=== PATIENT | female | born 1945 | race American Indian/Alaskan Native ===

== ENCOUNTER 2018-07-29 12:19 | Inpatient (IN) | payer MEDICARE ==
--- NOTE | 2018-07-29 12:28 | Emergency Department Report ---
Blank Doc - Documentation Documentation: This is a 72-year-old female that presents with weakness. PCP sent to the ED. This initial assessment/diagnostic orders/clinical plan/treatment(s) is/are subject to change based on patient's health status, clinical progression and re- assessment by fellow clinical providers in the ED. Further treatment and workup at subsequent clinical providers discretion. Patient/guardians urged not to elope from the ED as their condition may be serious if not clinically assessed and managed. Initial orders include: 1- Patient sent to MAIN ED for further evaluation and treatment 2- labs 3- patient is a/o x3
[2018-07-29 13:15] LABS: Mean Corpuscular HGB Conc 31 % (30-34); Mean Corpuscular Volume 78 fl (79-97); Platelet Count 241 K/mm3 (140-440); Red Blood Count 4.88 M/mm3 (3.65-5.03)
[2018-07-29 13:17] LABS: Hemoglobin 11.6 gm/dl (10.1-14.3)
[2018-07-29 13:35] LABS: Alanine Aminotransferase < 5 units/L (7-56); Albumin 4.6 g/dL (3.9-5); BUN/Creatinine Ratio 34; Blood Urea Nitrogen 24 mg/dL (7-17); Calcium 9.9 mg/dL (8.4-10.2); Hemolysis Index 125
[2018-07-29] MEDS ORDERED: NACL 0.9% 1000 ML 1,000 ML IV ONE (13:49)
--- NOTE | 2018-07-29 13:51 | Emergency Department Report ---
HPI - General Chief Complaint: Medical Clearance Time Seen by Provider: 07/29/18 12:26 - HPI HPI: 72-year-old [place] female presents to the emergency department with complaint of dehydration secondary to decreased oral intake. The patient is awake and alert but says that she does not have much of an appetite and will not force herself to eat or drink. Her son, who is bedside, says that he is prepared multiple different meals and/or snacks and she really seems to eat any of that. She denies any nausea or vomiting, fever, abdominal pain, dysuria. She denies any past medical history. She went to see a new primary care physician who recommended that the patient come to the emergency department for further evaluation. No recent travel or sick contacts at home. ED Past Medical Hx - Past Medical History Previous Medical History?: No - Surgical History Past Surgical History?: No - Social History Smoking Status: Never Smoker Substance Use Type: Alcohol - Medications Home Medications: Home Medications Medication Instructions Recorded Confirmed Last Taken Type No Known Home Medications [No 07/29/18 07/29/18 Unknown History Reported Home Medications] ED Review of Systems ROS: Stated complaint: DEHYDRATION Other details as noted in HPI Comment: All other systems reviewed and negative Constitutional: denies: chills, fever Eyes: denies: eye pain, vision change ENT: denies: ear pain, throat pain Respiratory: denies: cough, shortness of breath Cardiovascular: denies: chest pain, palpitations Gastrointestinal: denies: vomiting, diarrhea Genitourinary: denies: dysuria, discharge Musculoskeletal: denies: back pain, arthralgia Skin: denies: rash, lesions Neurological: denies: headache, weakness Physical Exam - Physical Exam Vital Signs: Vital Signs 07/29/18 07/29/18 12:27 12:48 Temperature 98.8 F Pulse Rate 90 Respiratory 20 Rate Blood Pressure 143/62 119/64 O2 Sat by Pulse 98 99 Oximetry Physical Exam: GENERAL: The patient is well-developed well-nourished. HENT: Normocephalic. Atraumatic. Patient has moist mucous membranes. EYES: Extraocular motions are intact. Pupils equal reactive to light bilaterally. NECK: Supple. Trachea is midline. CHEST/LUNGS: Clear to auscultation. There is no respiratory distress noted. HEART/CARDIOVASCULAR: Regular. There is no tachycardia. There is no murmur. ABDOMEN: Abdomen is soft, nontender. Patient has normal bowel sounds. There is no abdominal distention. SKIN: Skin is warm and dry. NEURO: The patient is awake, alert, and oriented. The patient is cooperative. The patient has no focal neurologic deficits. The patient has normal speech. MUSCULOSKELETAL: There is no tenderness or deformity. There is no limitation range of motion. There is no evidence of acute injury. ED Course Vital Signs 07/29/18 07/29/18 12:27 12:48 Temperature 98.8 F Pulse Rate 90 Respiratory 20 Rate Blood Pressure 143/62 119/64 O2 Sat by Pulse 98 99 Oximetry ED Medical Decision Making - Lab Data Result diagrams: 07/29/18 12:47 07/29/18 12:47 - Radiology Data Radiology results: report reviewed PROCEDURE: CT ABDOMEN PELVIS W CON TECHNIQUE: CT abdomen and pelvis with intravenous contrast HISTORY: Abd pain COMPARISONS: FINDINGS: No acute abnormality identified in the visualized lung bases. There are nonenhancing low-density cystic foci within the liver largest is seen within the right lobe measuring 1.78 cm Spleen is enlarged measuring 13.0 x 10.4 x 9.4 cm. No pancreatic abnormalities seen. And kidneys demonstrate no evidence for hydronephrosis. Noted is a low pole right renal cyst there are 2 small nonobstructing lower pole right renal calculi approximately 3 mm. No evidence for colonic or small bowel distention. The abdominal aorta is unremarkable. Appendix is identified and is unremarkable. There is a low density structure seen at the pubic symphysis is likely degenerative in nature reflecting cartilaginous hypertrophy Urinary bladder is unremarkable. No free fluid or free air identified Noted is degenerative disc disease at L2-L3 and L3-L4 with posterior bulging of the disc at L2-L3 IMPRESSION: Splenomegaly Hepatic cysts. Right renal cyst Small nonobstructing right renal calculi. Degenerative changes at L2-L3 and L3-L4 as well as the pubic symphysis. This document is electronically signed by Chetan Vazquez MD., Jul 29 2018 05:03:21 PM ET Transcribed By: ASHWIN Dictated By: ALEKS VAZQUEZ MD Electronically Authenticated By: ALEKS VAZQUEZ MD Signed Date/Time: 07/29/18 0850 - Medical Decision Making Patient presents to the emergency department with the complaint of decreased appetite and concern for dehydration. Patient has a white blood cell count of 31,000 that is majority lymphocytes. CT of the abdomen and pelvis did not show any acute process. She has a mild urinary tract infection. She will be admitted to the hospital for further evaluation and treatment was accepted for admission by hospitalist, Dr. Mcmanus. - Differential Diagnosis malignancy, UTI, sepsis, colitis Critical Care Time: No Critical care attestation.: If time is entered above; I have spent that time in minutes in the direct care of this critically ill patient, excluding procedure time. ED Disposition Clinical Impression: Lymphocytosis Leukocytosis Qualifiers: Leukocytosis type: lymphocytosis Qualified Code(s): D72.820 - Lymphocytosis (symptomatic) UTI (urinary tract infection) Qualifiers: Urinary tract infection type: acute cystitis Hematuria presence: without hematuria Qualified Code(s): N30.00 - Acute cystitis without hematuria Disposition: OP ADMIT IP TO THIS HOSP Is pt being admited?: Yes Condition: Fair Time of Disposition: 19:07
[2018-07-29 15:07] LABS: Bacteria,Urine 1+ /HPF (Negative); Bilirubin,Urine NEG (Negative); Blood,Urine SM (Negative); Color,Urine Amber (Yellow); Mucus,Urine 3+ /HPF
[2018-07-29 15:10] LABS: Basophils % (Manual) 0 % (0.0-1.8); Eosinophils % (Manual) 0 % (0.0-4.3); Monocytes % (Manual) 0 % (0.0-7.3); Total Cells Counted 100
[2018-07-29 15:11] LABS: Platelet Estimate Consistent w Auto; RBC Morphology Normal
--- NOTE | 2018-07-29 17:05 | Cat Scan Report ---
PROCEDURE: CT ABDOMEN PELVIS W CON TECHNIQUE: CT abdomen and pelvis with intravenous contrast HISTORY: Abd pain COMPARISONS: FINDINGS: No acute abnormality identified in the visualized lung bases. There are nonenhancing low-density cystic foci within the liver largest is seen within the right lobe measuring 1.78 cm Spleen is enlarged measuring 13.0 x 10.4 x 9.4 cm. No pancreatic abnormalities seen. And kidneys demonstrate no evidence for hydronephrosis. Noted is a low pole right renal cyst there ar e 2 small nonobstructing lower pole right renal calculi approximately 3 mm. No evidence for colonic or small bowel distention. The abdominal aorta is unremarkable. Appendix is identified and is unremarkable. There is a low density structure seen at the pubic symphysis is likely degenerative in nature reflect ing cartilaginous hypertrophy Urinary bladder is unremarkable. No free fluid or free air identified Noted is degenerative disc disease at L2-L3 and L3-L4 with posterior bulging of the disc at L2-L3 IMPRESSION: Splenomegaly Hepatic cysts. Right renal cyst Small nonobstructing right renal calculi. Degenerative changes at L2-L3 and L3-L4 as well as the pubic symphysis. This document is electronically signed by Chetan De Oliveira MD., Jul 29 2018 05:03:21 PM ET
--- NOTE | 2018-07-29 17:24 | History and Physical Report ---
History of Present Illness Chief complaint: She is confused, and shes not eating History of present illness: 72 YO Female with Dementia presents to ED for evaluation. Pt is confused and unable to provide detailed history. Pt history is provided by her son who is at bedside during exam and interview. As per son, the patient has experienced confusion, and loss of appetite over the past 2 weeks with persistent symptoms over the same time frame. No reports of fever, chills, CP, Palpitations, Falls, NVD, Syncope, skin rash, BRBPR, or recent ill contacts. Pt transported to [facility] via private vehicle. Pt seen and evaluated in ED and found to have SIRS secondary to UTI, Hypernatremia, Volume Depletion, as well as Encephalopathy. Pt admitted to [facility] and initiated on IV antibiotic therapy as well as IVF resuscitation therapy. Past History Past Medical History: other (Dementia) Past Surgical History: No surgical history, Other (reviewed) Social history: single. denies: smoking, alcohol abuse, prescription drug abuse Family history: no significant family history (reviewed) Medications and Allergies Allergies Allergy/AdvReac Type Severity Reaction Status Date / Time No Known Allergies Allergy Unverified 07/29/18 12:26 Home Medications Medication Instructions Recorded Confirmed Last Taken Type No Known Home Medications [No 07/29/18 07/29/18 Unknown History Reported Home Medications] Review of Systems ROS unobtainable: due to mental status Exam - Constitutional Vitals: Temp Pulse Resp BP Pulse Ox 98.8 F 90 20 117/56 99 07/29/18 12:27 07/29/18 12:27 07/29/18 12:27 07/29/18 15:00 07/29/18 15:00 General appearance: Present: mild distress - EENT Eyes: Present: PERRL ENT: hearing intact, clear oral mucosa - Neck Neck: Present: supple, normal ROM - Respiratory Respiratory effort: normal Respiratory: bilateral: CTA - Cardiovascular Heart Sounds: Present: S1 & S2. Absent: rub, click - Extremities Extremities: pulses symmetrical, No edema Peripheral Pulses: within normal limits - Abdominal General gastrointestinal: Present: soft, non-tender, non-distended, normal bowel sounds Female genitourinary: Present: normal - Integumentary Integumentary: Present: clear, warm, dry - Musculoskeletal Musculoskeletal: generalized weakness - Psychiatric Psychiatric: no appropriate mood/affect, no intact judgment & insight, no memory intact - Neurologic Neurologic: CNII-XII intact, moves all extremities Results - Labs CBC & Chem 7: 07/29/18 12:47 07/29/18 12:47 Labs: Abnormal lab results 07/29/18 07/29/18 07/29/18 Range/Units 12:47 12:47 14:23 WBC 31.5 H (4.5-11.0) K/mm3 MCV 78 L (79-97) fl MCH 24 L (28-32) pg Seg Neuts % (Manual) 9.0 L (40.0-70.0) % Lymphocytes % (Manual) 91.0 H (13.4-35.0) % Lymphocytes # (Manual) 28.7 H (1.2-5.4) K/mm3 Sodium 147 H (137-145) mmol/L BUN 24 H (7-17) mg/dL Glucose 116 H (65-100) mg/dL Total Bilirubin 2.10 H (0.1-1.2) mg/dL ALT < 5 L (7-56) units/L Lipase 126 H (13-60) units/L Ur Specific [place] 1.031 H (1.003-1.030) Urine WBC (Auto) 13.0 H (0.0-6.0) /HPF Assessment and Plan - Patient Problems (1) SIRS (systemic inflammatory response syndrome) Current Visit: Yes Status: Acute Plan to address problem: IV antibiotic therapy, CBC, CMP, Blood cultures, urinalysis, chest x ray, Repeat CBC in AM after treatment with IV antibiotic therapy to monitor for normalizat ion of leukocytosis. (2) Hypernatremia Current Visit: Yes Status: Acute Plan to address problem: IVF resuscitation therapy, repeat bmp in am, Encourage free water intake. (3) Volume depletion Current Visit: Yes Status: Acute Plan to address problem: Encourage free water intake, repeat bmp in am, monitor uop q shift, (4) UTI (urinary tract infection) Current Visit: Yes Status: Acute Qualifiers: Urinary tract infection type: acute cystitis Hematuria presence: without hematuria Qualified Code(s): N30.00 - Acute cystitis without hematuria Plan to address problem: IV antibiotic therapy, urinalysis, CBC, CMP, (5) Hyperbilirubinemia Current Visit: Yes Status: Acute Plan to address problem: IVF resuscitation, repeat LFT's (6) DVT prophylaxis Current Visit: Yes Status: Acute Plan to address problem: SCD to BLE while in bed, lovenox prophylaxis
[2018-07-29] MEDS ORDERED: TYLENOL PO PRN (17:25)
[2018-07-29] MEDS ORDERED: PROVENTIL IH PRN (17:25)
[2018-07-29] MEDS ORDERED: SODIUM CHLORIDE FLUSH SYRINGE 10 ML IV PRN (17:25)
[2018-07-29] MEDS ORDERED: ZOFRAN IV PRN (17:25)
[2018-07-29] MEDS: ROCEPHIN/NS 1 GM/50 ML 1 GM/50 ML BAG IV SCH (18:15)
[2018-07-29 21:08] LABS: Free T4 (Free Thyroxine) 1.23 ng/dL (0.76-1.46)
[2018-07-29] MEDS: LOVENOX SUB-Q SCH (23:13)
[2018-07-30 06:57] LABS: BUN/Creatinine Ratio 33; Blood Urea Nitrogen 20 mg/dL (7-17); Calcium 9.2 mg/dL (8.4-10.2); Hemolysis Index 97
[2018-07-30 07:02] LABS: Mean Corpuscular HGB Conc 29 % (30-34); Mean Corpuscular Volume 85 fl (79-97); Platelet Count 182 K/mm3 (140-440); Red Blood Count 4.26 M/mm3 (3.65-5.03)
[2018-07-30 07:05] LABS: Hemoglobin 10.3 gm/dl (10.1-14.3)
[2018-07-30 08:25] LABS: Anisocytosis 1+; Basophils % (Manual) 0 % (0.0-1.8); Eosinophils % (Manual) 0 % (0.0-4.3); Monocytes % (Manual) 0 % (0.0-7.3); Platelet Estimate Consistent w Auto; Total Cells Counted 100
--- NOTE | 2018-07-30 09:35 | Cat Scan Report ---
CT scan of head without IV contrast: History: Confusion. Findings: Ventricles are normal in size and midline in location. No evidence of acute ischemia, hemorrhage or mass. There is suspected focal areas of low attenuation at the right gilberto/medulla. No extra-axial fluid collection. Mild cortical atrophy. Normal visualized sinuses and mastoid air cells. Impression: Suspected focal areas of low-attenuation region of gilberto/medulla. Recommend MRI scan for further evaluation.
[2018-07-30] MEDS: ROCEPHIN/NS 1 GM/50 ML 1 GM/50 ML BAG IV SCH (10:34)
[2018-07-30] MEDS: SODIUM CHLORIDE FLUSH SYRINGE 10 ML IV SCH (10:36)
--- NOTE | 2018-07-30 11:33 | Progress Note ---
Assessment and Plan Assessment and plan: 72 YO Female with Dementia presented to ED for evaluation. Pt is confused and unable to provide detailed history. Pt history is provided by her son who is at bedside during exam and interview. As per son, the patient has experienced confusion, and loss of appetite over the past 2 weeks with persistent symptoms over the same time frame. Pt evaluated and found to have SIRS secondary to UTI, Hypernatremia, Volume Depletion, as well as Acute Metabolic Encephalopathy. Pt admitted to [facility] and initiated on IV antibiotic therapy as well as IVF resuscitation therapy. Hypernatremia UTI Dehydration Hyperbilirubinemia Leukocytosis Malnutrition moderate to severe Plan: Sodium improvement UA slightly Cloudy with Elevated WBC Cultures pending Continue Ceftriaxone Start IVF D5 1/2NS at 125 Continue to encourage oral intake Monitor WBC and lymphocyte count Monitor LFT's Monitor Labs Consult hematology Consult dietitian DVT PPX SCD and Lovenox History Interval history: Pt is seen on the [facility] unit today, and her son is at the bedside. At the time of examination pt was awake, alert and oriented x3. She was able to answer questions and follow command. She continues to have poor oral intake, and intake was encourage. She denies a thickened past medical history and states that the only time she was hospitalized was when she delivered her son. Denies cough, pain, n/v/d/, or dyspnea. Hospitalist Physical - Constitutional Vitals: Temp Pulse Resp BP Pulse Ox 98.5 F 71 16 100/53 98 07/30/18 07:57 07/30/18 07:57 07/30/18 07:57 07/30/18 07:57 07/30/18 07:57 General appearance: Present: no acute distress, mild distress - EENT Eyes: Present: PERRL, EOM intact ENT: hearing intact, clear oral mucosa, poor dentition - Neck Neck: Present: supple, normal ROM - Respiratory Respiratory effort: normal Respiratory: bilateral: diminished - Cardiovascular Heart rate: 71 (bpm) Rhythm: regular Heart Sounds: Present: S1 & S2 - Extremities Extremities: pulses intact, pulses symmetrical, No edema - Abdominal General gastrointestinal: soft, non-tender, normal bowel sounds - Integumentary Integumentary: Present: warm, dry - Psychiatric Psychiatric: appropriate mood/affect, cooperative - Neurologic Neurologic: CNII-XII intact, moves all extremities - Allied Health Allied health notes reviewed: nursing Results - Labs CBC & Chem 7: 07/30/18 05:24 07/30/18 05:24 Labs: Laboratory Last Values WBC 20.2 K/mm3 (4.5-11.0) H 07/30/18 05:24 RBC 4.26 M/mm3 (3.65-5.03) 07/30/18 05:24 Hgb 10.3 gm/dl (10.1-14.3) 07/30/18 05:24 Hct 36.0 % (30.3-42.9) 07/30/18 05:24 MCV 85 fl (79-97) 07/30/18 05:24 MCH 24 pg (28-32) L 07/30/18 05:24 MCHC 29 % (30-34) L 07/30/18 05:24 RDW 16.0 % (13.2-15.2) H 07/30/18 05:24 Plt Count 182 K/mm3 (140-440) 07/30/18 05:24 Lymph % (Auto) Nipple Threader 07/30/18 05:24 [place] % (Auto) Nipple Threader 07/30/18 05:24 Eos % (Auto) Nipple Threader 07/30/18 05:24 Baso % (Auto) Nipple Threader 07/30/18 05:24 Lymph # Nipple Threader 07/30/18 05:24 [place] # Nipple Threader 07/30/18 05:24 Eos # Nipple Threader 07/30/18 05:24 Baso # Nipple Threader 07/30/18 05:24 Add Manual Diff Complete 07/30/18 05:24 Total Counted 100 07/30/18 05:24 Seg Neutrophils % Nipple Threader 07/30/18 05:24 Seg Neuts % (Manual) 10.0 % (40.0-70.0) L 07/30/18 05:24 Band Neutrophils % 0 % 07/30/18 05:24 Lymphocytes % (Manual) 88.0 % (13.4-35.0) H 07/30/18 05:24 Reactive Lymphs % (Man) 2.0 % 07/30/18 05:24 Monocytes % (Manual) 0 % (0.0-7.3) 07/30/18 05:24 Eosinophils % (Manual) 0 % (0.0-4.3) 07/30/18 05:24 Basophils % (Manual) 0 % (0.0-1.8) 07/30/18 05:24 Metamyelocytes % 0 % 07/30/18 05:24 Myelocytes % 0 % 07/30/18 05:24 Promyelocytes % 0 % 07/30/18 05:24 Blast Cells % 0 % 07/30/18 05:24 Nucleated RBC % Not Reportable 07/30/18 05:24 Seg Neutrophils # Nipple Threader 07/30/18 05:24 Seg Neutrophils # Man 0.0 K/mm3 (1.8-7.7) L 07/30/18 05:24 Band Neutrophils # 0.0 K/mm3 07/30/18 05:24 Lymphocytes # (Manual) 0.0 K/mm3 (1.2-5.4) L 07/30/18 05:24 Abs React Lymphs (Man) 0.0 K/mm3 07/30/18 05:24 Monocytes # (Manual) 0.0 K/mm3 (0.0-0.8) 07/30/18 05:24 Eosinophils # (Manual) 0.0 K/mm3 (0.0-0.4) 07/30/18 05:24 Basophils # (Manual) 0.0 K/mm3 (0.0-0.1) 07/30/18 05:24 Metamyelocytes # 0.0 K/mm3 07/30/18 05:24 Myelocytes # 0.0 K/mm3 07/30/18 05:24 Promyelocytes # 0.0 K/mm3 07/30/18 05:24 Blast Cells # 0.0 K/mm3 07/30/18 05:24 WBC Morphology Not Reportable 07/30/18 05:24 Hypersegmented Neuts Not Reportable 07/30/18 05:24 Hyposegmented Neuts Not Reportable 07/30/18 05:24 Hypogranular Neuts Not Reportable 07/30/18 05:24 Smudge Cells Not Reportable 07/30/18 05:24 Toxic Granulation Not Reportable 07/30/18 05:24 Toxic Vacuolation Not Reportable 07/30/18 05:24 Dohle Bodies Not Reportable 07/30/18 05:24 Pelger-Huet Anomaly Not Reportable 07/30/18 05:24 Saleem Rods Not Reportable 07/30/18 05:24 Platelet Estimate Consistent w auto 07/30/18 05:24 Clumped Platelets Not Reportable 07/30/18 05:24 Plt Clumps, EDTA Not Reportable 07/30/18 05:24 Large Platelets Not Reportable 07/30/18 05:24 Giant Platelets Not Reportable 07/30/18 05:24 Platelet Satelliting Not Reportable 07/30/18 05:24 Plt Morphology Comment Not Reportable 07/30/18 05:24 RBC Morphology Not Reportable 07/30/18 05:24 Dimorphic RBCs Not Reportable 07/30/18 05:24 Polychromasia Not Reportable 07/30/18 05:24 Hypochromasia Not Reportable 07/30/18 05:24 Poikilocytosis Not Reportable 07/30/18 05:24 Anisocytosis 1+ 07/30/18 05:24 Microcytosis Not Reportable 07/30/18 05:24 Macrocytosis Not Reportable 07/30/18 05:24 Spherocytes Not Reportable 07/30/18 05:24 Pappenheimer Bodies Not Reportable 07/30/18 05:24 Sickle Cells Not Reportable 07/30/18 05:24 Target Cells Not Reportable 07/30/18 05:24 Tear Drop Cells Not Reportable 07/30/18 05:24 Ovalocytes Not Reportable 07/30/18 05:24 Helmet Cells Not Reportable 07/30/18 05:24 Hester-Landess Bodies Not Reportable 07/30/18 05:24 Brogan Rings Not Reportable 07/30/18 05:24 [place] Cells Not Reportable 07/30/18 05:24 Bite Cells Not Reportable 07/30/18 05:24 Crenated Cell Not Reportable 07/30/18 05:24 Elliptocytes Not Reportable 07/30/18 05:24 Acanthocytes (Spur) Not Reportable 07/30/18 05:24 Rouleaux Not Reportable 07/30/18 05:24 Hemoglobin C Crystals Not Reportable 07/30/18 05:24 Schistocytes Not Reportable 07/30/18 05:24 Malaria parasites Not Reportable 07/30/18 05:24 Akash Bodies Not Reportable 07/30/18 05:24 Hem Pathologist Commnt No 07/30/18 05:24 Sodium 144 mmol/L (137-145) 07/30/18 05:24 Potassium 3.6 mmol/L (3.6-5.0) 07/30/18 05:24 Chloride 104.1 mmol/L (98-107) 07/30/18 05:24 Carbon Dioxide 21 mmol/L (22-30) L 07/30/18 05:24 Anion Gap 23 mmol/L 07/30/18 05:24 BUN 20 mg/dL (7-17) H 07/30/18 05:24 Creatinine 0.6 mg/dL (0.7-1.2) L 07/30/18 05:24 Estimated GFR > 60 ml/min 07/30/18 05:24 BUN/Creatinine Ratio 33 % 07/30/18 05:24 Glucose 86 mg/dL (65-100) 07/30/18 05:24 Lactic Acid 1.00 mmol/L (0.7-2.0) 07/29/18 21:10 Calcium 9.2 mg/dL (8.4-10.2) 07/30/18 05:24 Total Bilirubin 2.10 mg/dL (0.1-1.2) H 07/29/18 12:47 AST 21 units/L (5-40) 07/29/18 12:47 ALT < 5 units/L (7-56) L 07/29/18 12:47 Alkaline Phosphatase 56 units/L (35-129) 07/29/18 12:47 Total Protein 7.5 g/dL (6.3-8.2) 07/29/18 12:47 Albumin 4.6 g/dL (3.9-5) 07/29/18 12:47 Albumin/Globulin Ratio 1.6 % 07/29/18 12:47 Lipase 126 units/L (13-60) H 07/29/18 12:47 TSH 0.438 mlU/mL (0.270-4.200) 07/29/18 20:15 Free T4 1.23 ng/dL (0.76-1.46) 07/29/18 20:15 Urine Color [place] (Yellow) 07/29/18 14:23 Urine Turbidity Slightly-cloudy (Clear) 07/29/18 14:23 Urine pH 5.0 (5.0-7.0) 07/29/18 14:23 Ur Specific [place] 1.031 (1.003-1.030) H 07/29/18 14:23 Urine Protein 100 mg/dl mg/dL (Negative) 07/29/18 14:23 Urine Glucose (UA) Neg mg/dL (Negative) 07/29/18 14:23 Urine Ketones 20 mg/dL (Negative) 07/29/18 14:23 Urine Blood Sm (Negative) 07/29/18 14:23 Urine Nitrite Neg (Negative) 07/29/18 14:23 Urine Bilirubin Neg (Negative) 07/29/18 14:23 Urine Urobilinogen 4.0 mg/dL (<2.0) 07/29/18 14:23 Ur Leukocyte Esterase Mod (Negative) 07/29/18 14:23 Urine WBC (Auto) 13.0 /HPF (0.0-6.0) H 07/29/18 14:23 Urine RBC (Auto) 4.0 /HPF (0.0-6.0) 07/29/18 14:23 U Epithel Cells (Auto) 9.0 /HPF (0-13.0) 07/29/18 14:23 Urine Bacteria (Auto) 1+ /HPF (Negative) 07/29/18 14:23 Urine Mucus 3+ /HPF 07/29/18 14:23 Active Medications - Current Medications Current Medications: Generic Name Dose Route Start Last Admin Trade Name Freq PRN Reason Stop Dose Admin Acetaminophen 650 mg 07/29/18 17:25 Tylenol PO Q4H PRN Pain MILD(1-3)/Fever >100.5/MARTELL Albuterol 2.5 mg 07/29/18 17:25 Proventil IH Q4HRT PRN Shortness Of Breath Enoxaparin Sodium 40 mg 07/29/18 22:00 07/29/18 23:13 Lovenox SUB-Q 40 mg QDAY@2200 TISHA Administration Ceftriaxone Sodium 1 gm in 50 mls @ 100 mls/hr 07/29/18 17:27 07/30/18 10:34 Rocephin/Ns 1 Gm/50 Ml IV 07/31/18 10:29 100 mls/hr Q24HR TISHA Administration Protocol Dextrose/Sodium Chloride 1,000 mls @ 125 mls/hr 07/30/18 11:00 D5/0.45ns IV DIRECT TISHA Ondansetron HCl 4 mg 07/29/18 17:25 Zofran IV Q8H PRN Nausea And Vomiting Sodium Chloride 10 ml 07/29/18 22:00 07/30/18 10:36 Sodium Chloride Flush Syringe 10 Ml IV 10 ml BID TISHA Administration Sodium Chloride 10 ml 07/29/18 17:25 Sodium Chloride Flush Syringe 10 Ml IV PRN PRN LINE FLUSH
[2018-07-30] MEDS: D5/0.45NS 1,000 ML IV SCH (14:57)
[2018-07-31] MEDS: ROCEPHIN/NS 1 GM/50 ML 1 GM/50 ML BAG IV SCH (10:37)
[2018-07-31] MEDS: SODIUM CHLORIDE FLUSH SYRINGE 10 ML IV SCH ×2 (10:37→22:41)
[2018-07-31] MEDS: D5/0.45NS 1,000 ML IV SCH ×2 (10:41→22:40)
[2018-07-31 12:39] LABS: Hematocrit 31.3 % (30.3-42.9); Hemoglobin 9.6 gm/dl (10.1-14.3); Mean Corpuscular HGB Conc 31 % (30-34); Mean Corpuscular Volume 77 fl (79-97); Platelet Count 169 K/mm3 (140-440); Red Blood Count 4.06 M/mm3 (3.65-5.03); Red Cell Distribution Width 14.7 % (13.2-15.2)
[2018-07-31 13:31] LABS: Anisocytosis 1+; Basophils % (Manual) 0 % (0.0-1.8); Total Cells Counted 100
[2018-07-31 13:32] LABS: Hypochromasia 1+; Ovalocytes Few; Platelet Estimate Consistent w Auto; Poikilocytosis 1+; Tear Drop Cells Few
--- NOTE | 2018-07-31 14:00 | Progress Note ---
<BURTONNATHAN Noemi. - Last Filed: 07/31/18 14:09> Assessment and Plan Assessment and plan: 72 y.o female with Dementia presented to ED for evaluation. Pt is confused and unable to provide detailed history. Pt history is provided by her son who is at bedside during exam and interview. As per son, the patient has experienced confusion, and loss of appetite over the past 2 weeks with persistent symptoms over the same time frame. Pt evaluated and found to have UTI, Hypernatremia, Volume Depletion, as well as Acute Metabolic Encephalopathy. Pt admitted to [facility] and initiated on IV antibiotic therapy as well as IVF resuscitation therapy. Hypernatremia UTI Dehydration Hyperbilirubinemia Leukocytosis Malnutrition moderate Acute Metabolic Encephalopathy Plan: Sodium improved UA slightly Cloudy with Elevated WBC; urine culture negative Blood Cultures NGTD Continue Ceftriaxone Continue IVF D5 1/2NS at 125 Continue to encourage oral intake Monitor WBC and lymphocyte count Monitor LFT's Monitor Labs Hematology consult pending Dietitian consulted Continue PT DVT PPX SCD and Lovenox History Interval history: Pt is seen on the [facility] unit today, and her son is at the bedside. Pt is able to ambulate with standby assist from PT. Her gait is steady. Pt seems more alert during today's exam. According to pt's son, pt is mentation is improving and she is almost at baseline. Overnight while pt was sleeping she experienced one episode of hypotension, and she was asymptomatic. Her intake has slightly improved. Home health services was offered, and the son has declined. He states that he lives with his mother and works nights, so he can take care of her. Denies cough, pain, n/v/d/, or dyspnea. Hospitalist Physical - Physical exam Narrative exam: General appearance: Present: no acute distress - EENT Eyes: Present: PERRL, EOM intact ENT: hearing intact, clear oral mucosa, poor dentition - Neck Neck: Present: supple, normal ROM Diagnosis - Respiratory Respiratory effort: normal Respiratory: bilateral: diminished - Cardiovascular Heart rate: 75 (bpm) Rhythm: regular Heart Sounds: Present: S1 & S2 - Extremities Extremities: pulses intact, pulses symmetrical, No edema - Abdominal General gastrointestinal: soft, non-tender, normal bowel sounds - Integumentary Integumentary: Present: warm, dry - Psychiatric Psychiatric: appropriate mood/affect, cooperative - Neurologic Neurologic: CNII-XII intact, moves all extremities - Constitutional Vitals: Temp Pulse Resp BP Pulse Ox 97.6 F 59 L 18 101/42 97 07/31/18 07:38 07/31/18 07:38 07/31/18 07:38 07/31/18 07:38 07/31/18 07:38 General appearance: Present: no acute distress, mild distress - Allied Health Allied health notes reviewed: nursing, PT, case management Results - Labs CBC & Chem 7: 07/31/18 12:28 07/30/18 05:24 Labs: Laboratory Last Values WBC 21.6 K/mm3 (4.5-11.0) H 07/31/18 12:28 RBC 4.06 M/mm3 (3.65-5.03) 07/31/18 12:28 Hgb 9.6 gm/dl (10.1-14.3) L 07/31/18 12:28 Hct 31.3 % (30.3-42.9) 07/31/18 12:28 MCV 77 fl (79-97) L 07/31/18 12:28 MCH 24 pg (28-32) L 07/31/18 12:28 MCHC 31 % (30-34) 07/31/18 12:28 RDW 14.7 % (13.2-15.2) 07/31/18 12:28 Plt Count 169 K/mm3 (140-440) 07/31/18 12:28 Lymph % (Auto) Hydraulic Operator 07/31/18 12:28 Hopkins % (Auto) Hydraulic Operator 07/30/18 05:24 Eos % (Auto) Hydraulic Operator 07/30/18 05:24 Baso % (Auto) Hydraulic Operator 07/30/18 05:24 Lymph # Hydraulic Operator 07/31/18 12:28 Hopkins # Hydraulic Operator 07/30/18 05:24 Eos # Hydraulic Operator 07/30/18 05:24 Baso # Hydraulic Operator 07/30/18 05:24 Add Manual Diff Complete 07/31/18 12:28 Total Counted 100 07/31/18 12:28 Seg Neutrophils % Hydraulic Operator 07/31/18 12:28 Seg Neuts % (Manual) 14.0 % (40.0-70.0) L 07/31/18 12:28 Band Neutrophils % 0 % 07/31/18 12:28 Lymphocytes % (Manual) 82.0 % (13.4-35.0) H 07/31/18 12:28 Reactive Lymphs % (Man) 0 % 07/31/18 12:28 Monocytes % (Manual) 3.0 % (0.0-7.3) 07/31/18 12:28 Eosinophils % (Manual) 1.0 % (0.0-4.3) 07/31/18 12:28 Basophils % (Manual) 0 % (0.0-1.8) 07/31/18 12:28 Metamyelocytes % 0 % 07/31/18 12:28 Myelocytes % 0 % 07/31/18 12:28 Promyelocytes % 0 % 07/31/18 12:28 Blast Cells % 0 % 07/31/18 12:28 Nucleated RBC % Not Reportable 07/31/18 12:28 Seg Neutrophils # Hydraulic Operator 07/30/18 05:24 Seg Neutrophils # Man 3.0 K/mm3 (1.8-7.7) 07/31/18 12:28 Band Neutrophils # 0.0 K/mm3 07/31/18 12:28 Lymphocytes # (Manual) 17.7 K/mm3 (1.2-5.4) H 07/31/18 12:28 Abs React Lymphs (Man) 0.0 K/mm3 07/31/18 12:28 Monocytes # (Manual) 0.6 K/mm3 (0.0-0.8) 07/31/18 12:28 Eosinophils # (Manual) 0.2 K/mm3 (0.0-0.4) 07/31/18 12:28 Basophils # (Manual) 0.0 K/mm3 (0.0-0.1) 07/31/18 12:28 Metamyelocytes # 0.0 K/mm3 07/31/18 12:28 Myelocytes # 0.0 K/mm3 07/31/18 12:28 Promyelocytes # 0.0 K/mm3 07/31/18 12:28 Blast Cells # 0.0 K/mm3 07/31/18 12:28 WBC Morphology Not Reportable 07/31/18 12:28 Hypersegmented Neuts Not Reportable 07/31/18 12:28 Hyposegmented Neuts Not Reportable 07/31/18 12:28 Hypogranular Neuts Not Reportable 07/31/18 12:28 Smudge Cells Not Reportable 07/31/18 12:28 Toxic Granulation Not Reportable 07/31/18 12:28 Toxic Vacuolation Not Reportable 07/31/18 12:28 Dohle Bodies Not Reportable 07/31/18 12:28 Pelger-Huet Anomaly Not Reportable 07/31/18 12:28 Saleem Rods Not Reportable 07/31/18 12:28 Platelet Estimate Consistent w auto 07/31/18 12:28 Clumped Platelets Not Reportable 07/31/18 12:28 Plt Clumps, EDTA Not Reportable 07/31/18 12:28 Large Platelets Not Reportable 07/31/18 12:28 Giant Platelets Not Reportable 07/31/18 12:28 Platelet Satelliting Not Reportable 07/31/18 12:28 Plt Morphology Comment Not Reportable 07/31/18 12:28 RBC Morphology Not Reportable 07/31/18 12:28 Dimorphic RBCs Not Reportable 07/31/18 12:28 Polychromasia Not Reportable 07/31/18 12:28 Hypochromasia 1+ 07/31/18 12:28 Poikilocytosis 1+ 07/31/18 12:28 Anisocytosis 1+ 07/31/18 12:28 Microcytosis 1+ 07/31/18 12:28 Macrocytosis Not Reportable 07/31/18 12:28 Spherocytes Not Reportable 07/31/18 12:28 Pappenheimer Bodies Not Reportable 07/31/18 12:28 Sickle Cells Not Reportable 07/31/18 12:28 Target Cells Not Reportable 07/31/18 12:28 Tear Drop Cells Few 07/31/18 12:28 Ovalocytes Few 07/31/18 12:28 Helmet Cells Not Reportable 07/31/18 12:28 H[employer] Bodies Not Reportable 07/31/18 12:28 [place] Rings Not Reportable 07/31/18 12:28 [place] Cells Not Reportable 07/31/18 12:28 Bite Cells Not Reportable 07/31/18 12:28 Crenated Cell Not Reportable 07/31/18 12:28 Elliptocytes Few 07/31/18 12:28 Acanthocytes (Spur) Not Reportable 07/31/18 12:28 Rouleaux Not Reportable 07/31/18 12:28 Hemoglobin C Crystals Not Reportable 07/31/18 12:28 Schistocytes Not Reportable 07/31/18 12:28 Malaria parasites Not Reportable 07/31/18 12:28 Akash Bodies Not Reportable 07/31/18 12:28 Hem Pathologist Commnt No 07/31/18 12:28 Sodium 144 mmol/L (137-145) 07/30/18 05:24 Potassium 3.6 mmol/L (3.6-5.0) 07/30/18 05:24 Chloride 104.1 mmol/L (98-107) 07/30/18 05:24 Carbon Dioxide 21 mmol/L (22-30) L 07/30/18 05:24 Anion Gap 23 mmol/L 07/30/18 05:24 BUN 20 mg/dL (7-17) H 07/30/18 05:24 Creatinine 0.6 mg/dL (0.7-1.2) L 07/30/18 05:24 Estimated GFR > 60 ml/min 07/30/18 05:24 BUN/Creatinine Ratio 33 % 07/30/18 05:24 Glucose 86 mg/dL (65-100) 07/30/18 05:24 Lactic Acid 1.00 mmol/L (0.7-2.0) 07/29/18 21:10 Calcium 9.2 mg/dL (8.4-10.2) 07/30/18 05:24 Total Bilirubin 2.10 mg/dL (0.1-1.2) H 07/29/18 12:47 AST 21 units/L (5-40) 07/29/18 12:47 ALT < 5 units/L (7-56) L 07/29/18 12:47 Alkaline Phosphatase 56 units/L (35-129) 07/29/18 12:47 Total Protein 7.5 g/dL (6.3-8.2) 07/29/18 12:47 Albumin 4.6 g/dL (3.9-5) 07/29/18 12:47 Albumin/Globulin Ratio 1.6 % 07/29/18 12:47 Lipase 126 units/L (13-60) H 07/29/18 12:47 TSH 0.438 mlU/mL (0.270-4.200) 07/29/18 20:15 Free T4 1.23 ng/dL (0.76-1.46) 07/29/18 20:15 Urine Color Josselyn (Yellow) 07/29/18 14:23 Urine Turbidity Slightly-cloudy (Clear) 07/29/18 14:23 Urine pH 5.0 (5.0-7.0) 07/29/18 14:23 Ur Specific [place] 1.031 (1.003-1.030) H 07/29/18 14:23 Urine Protein 100 mg/dl mg/dL (Negative) 07/29/18 14:23 Urine Glucose (UA) Neg mg/dL (Negative) 07/29/18 14:23 Urine Ketones 20 mg/dL (Negative) 07/29/18 14:23 Urine Blood Sm (Negative) 07/29/18 14:23 Urine Nitrite Neg (Negative) 07/29/18 14:23 Urine Bilirubin Neg (Negative) 07/29/18 14:23 Urine Urobilinogen 4.0 mg/dL (<2.0) 07/29/18 14:23 Ur Leukocyte Esterase Mod (Negative) 07/29/18 14:23 Urine WBC (Auto) 13.0 /HPF (0.0-6.0) H 07/29/18 14:23 Urine RBC (Auto) 4.0 /HPF (0.0-6.0) 07/29/18 14:23 U Epithel Cells (Auto) 9.0 /HPF (0-13.0) 07/29/18 14:23 Urine Bacteria (Auto) 1+ /HPF (Negative) 07/29/18 14:23 Urine Mucus 3+ /HPF 07/29/18 14:23 Active Medications - Current Medications Current Medications: Generic Name Dose Route Start Last Admin Trade Name Freq PRN Reason Stop Dose Admin Acetaminophen 650 mg 07/29/18 17:25 Tylenol PO Q4H PRN Pain MILD(1-3)/Fever >100.5/MARTELL Albuterol 2.5 mg 07/29/18 17:25 Proventil IH Q4HRT PRN Shortness Of Breath Enoxaparin Sodium 40 mg 07/29/18 22:00 07/29/18 23:13 Lovenox SUB-Q 40 mg QDAY@2200 TISHA Administration Dextrose/Sodium Chloride 1,000 mls @ 125 mls/hr 07/30/18 11:00 07/31/18 10:41 D5/0.45ns IV 125 mls/hr DIRECT TISHA Administration Ondansetron HCl 4 mg 07/29/18 17:25 Zofran IV Q8H PRN Nausea And Vomiting Sodium Chloride 10 ml 07/29/18 22:00 07/31/18 10:37 Sodium Chloride Flush Syringe 10 Ml IV 10 ml BID TISHA Administration Sodium Chloride 10 ml 07/29/18 17:25 Sodium Chloride Flush Syringe 10 Ml IV PRN PRN LINE FLUSH <JUAN M JOHNSONILEANA M - Last Filed: 08/02/18 23:01> Assessment and Plan Assessment and plan: I saw and evaluated the patient. I agree with the findings and the plan of care as documented in the Nurse Practitioner's~note, with the following corrections and additions. ataxia- cont PT, obtain MR brain Hospitalist Physical - Constitutional Vitals: Temp Pulse Resp BP Pulse Ox 98.2 F 65 18 114/49 100 08/01/18 13:18 08/01/18 13:18 08/01/18 13:18 08/01/18 13:18 08/01/18 13:18 Results - Labs CBC & Chem 7: 08/01/18 06:11 07/30/18 05:24 Labs: Laboratory Last Values WBC 16.4 K/mm3 (4.5-11.0) H 08/01/18 06:11 RBC 3.75 M/mm3 (3.65-5.03) 08/01/18 06:11 Hgb 9.1 gm/dl (10.1-14.3) L 08/01/18 06:11 Hct 29.0 % (30.3-42.9) L 08/01/18 06:11 MCV 77 fl (79-97) L 08/01/18 06:11 MCH 24 pg (28-32) L 08/01/18 06:11 MCHC 31 % (30-34) 08/01/18 06:11 RDW 14.6 % (13.2-15.2) 08/01/18 06:11 Plt Count 140 K/mm3 (140-440) 08/01/18 06:11 Lymph % (Auto) Hydraulic Operator 08/01/18 06:11 Hopkins % (Auto) Hydraulic Operator 07/30/18 05:24 Eos % (Auto) Hydraulic Operator 07/30/18 05:24 Baso % (Auto) Hydraulic Operator 07/30/18 05:24 Lymph # Hydraulic Operator 08/01/18 06:11 Hopkins # Hydraulic Operator 07/30/18 05:24 Eos # Hydraulic Operator 07/30/18 05:24 Baso # Hydraulic Operator 07/30/18 05:24 Add Manual Diff Complete 08/01/18 06:11 Total Counted 100 08/01/18 06:11 Seg Neutrophils % Hydraulic Operator 08/01/18 06:11 Seg Neuts % (Manual) 12.0 % (40.0-70.0) L 08/01/18 06:11 Band Neutrophils % 0 % 08/01/18 06:11 Lymphocytes % (Manual) 86.0 % (13.4-35.0) H 08/01/18 06:11 Reactive Lymphs % (Man) 0 % 08/01/18 06:11 Monocytes % (Manual) 2.0 % (0.0-7.3) 08/01/18 06:11 Eosinophils % (Manual) 0 % (0.0-4.3) 08/01/18 06:11 Basophils % (Manual) 0 % (0.0-1.8) 08/01/18 06:11 Metamyelocytes % 0 % 08/01/18 06:11 Myelocytes % 0 % 08/01/18 06:11 Promyelocytes % 0 % 08/01/18 06:11 Blast Cells % 0 % 08/01/18 06:11 Nucleated RBC % Not Reportable 08/01/18 06:11 Seg Neutrophils # Hydraulic Operator 07/30/18 05:24 Seg Neutrophils # Man 2.0 K/mm3 (1.8-7.7) 08/01/18 06:11 Band Neutrophils # 0.0 K/mm3 08/01/18 06:11 Lymphocytes # (Manual) 14.1 K/mm3 (1.2-5.4) H 08/01/18 06:11 Abs React Lymphs (Man) 0.0 K/mm3 08/01/18 06:11 Monocytes # (Manual) 0.3 K/mm3 (0.0-0.8) 08/01/18 06:11 Eosinophils # (Manual) 0.0 K/mm3 (0.0-0.4) 08/01/18 06:11 Basophils # (Manual) 0.0 K/mm3 (0.0-0.1) 08/01/18 06:11 Metamyelocytes # 0.0 K/mm3 08/01/18 06:11 Myelocytes # 0.0 K/mm3 08/01/18 06:11 Promyelocytes # 0.0 K/mm3 08/01/18 06:11 Blast Cells # 0.0 K/mm3 08/01/18 06:11 WBC Morphology Not Reportable 08/01/18 06:11 Hypersegmented Neuts Not Reportable 08/01/18 06:11 Hyposegmented Neuts Not Reportable 08/01/18 06:11 Hypogranular Neuts Not Reportable 08/01/18 06:11 Smudge Cells Not Reportable 08/01/18 06:11 Toxic Granulation Not Reportable 08/01/18 06:11 Toxic Vacuolation Not Reportable 08/01/18 06:11 Dohle Bodies Not Reportable 08/01/18 06:11 Pelger-Huet Anomaly Not Reportable 08/01/18 06:11 Saleem Rods Not Reportable 08/01/18 06:11 Platelet Estimate Consistent w auto 08/01/18 06:11 Clumped Platelets Not Reportable 08/01/18 06:11 Plt Clumps, EDTA Not Reportable 08/01/18 06:11 Large Platelets Not Reportable 08/01/18 06:11 Giant Platelets Not Reportable 08/01/18 06:11 Platelet Satelliting Not Reportable 08/01/18 06:11 Plt Morphology Comment Not Reportable 08/01/18 06:11 RBC Morphology Not Reportable 08/01/18 06:11 Dimorphic RBCs Not Reportable 08/01/18 06:11 Polychromasia Not Reportable 08/01/18 06:11 Hypochromasia Not Reportable 08/01/18 06:11 Poikilocytosis Not Reportable 08/01/18 06:11 Anisocytosis 1+ 08/01/18 06:11 Microcytosis Not Reportable 08/01/18 06:11 Macrocytosis Not Reportable 08/01/18 06:11 Spherocytes Not Reportable 08/01/18 06:11 Pappenheimer Bodies Not Reportable 08/01/18 06:11 Sickle Cells Not Reportable 08/01/18 06:11 Target Cells Not Reportable 08/01/18 06:11 Tear Drop Cells Not Reportable 08/01/18 06:11 Ovalocytes Not Reportable 08/01/18 06:11 Helmet Cells Not Reportable 08/01/18 06:11 [employer] Bodies Not Reportable 08/01/18 06:11 [place] Rings Not Reportable 08/01/18 06:11 [place] Cells Not Reportable 08/01/18 06:11 Bite Cells Not Reportable 08/01/18 06:11 Crenated Cell Not Reportable 08/01/18 06:11 Elliptocytes Not Reportable 08/01/18 06:11 Acanthocytes (Spur) Not Reportable 08/01/18 06:11 Rouleaux Not Reportable 08/01/18 06:11 Hemoglobin C Crystals Not Reportable 08/01/18 06:11 Schistocytes Not Reportable 08/01/18 06:11 Malaria parasites Not Reportable 08/01/18 06:11 Akash Bodies Not Reportable 08/01/18 06:11 Hem Pathologist Commnt No 08/01/18 06:11 Sodium 144 mmol/L (137-145) 07/30/18 05:24 Potassium 3.6 mmol/L (3.6-5.0) 07/30/18 05:24 Chloride 104.1 mmol/L (98-107) 07/30/18 05:24 Carbon Dioxide 21 mmol/L (22-30) L 07/30/18 05:24 Anion Gap 23 mmol/L 07/30/18 05:24 BUN 20 mg/dL (7-17) H 07/30/18 05:24 Creatinine 0.6 mg/dL (0.7-1.2) L 07/30/18 05:24 Estimated GFR > 60 ml/min 07/30/18 05:24 BUN/Creatinine Ratio 33 % 07/30/18 05:24 Glucose 86 mg/dL (65-100) 07/30/18 05:24 Lactic Acid 1.00 mmol/L (0.7-2.0) 07/29/18 21:10 Calcium 9.2 mg/dL (8.4-10.2) 07/30/18 05:24 Iron 49 ug/dL (37-170) 08/01/18 06:11 TIBC 152 mcg/dL (250-450) L 08/01/18 06:11 Total Bilirubin 2.10 mg/dL (0.1-1.2) H 07/29/18 12:47 AST 21 units/L (5-40) 07/29/18 12:47 ALT < 5 units/L (7-56) L 07/29/18 12:47 Alkaline Phosphatase 56 units/L (35-129) 07/29/18 12:47 Total Protein 7.5 g/dL (6.3-8.2) 07/29/18 12:47 Albumin 4.6 g/dL (3.9-5) 07/29/18 12:47 Albumin/Globulin Ratio 1.6 % 07/29/18 12:47 Lipase 126 units/L (13-60) H 07/29/18 12:47 Vitamin B12 393.9 pg/mL (211-911) 08/01/18 06:11 Folate 9.04 ng/mL (7.3-26.0) 08/01/18 06:11 TSH 0.438 mlU/mL (0.270-4.200) 07/29/18 20:15 Free T4 1.23 ng/dL (0.76-1.46) 07/29/18 20:15 Urine Color Josselyn (Yellow) 07/29/18 14:23 Urine Turbidity Slightly-cloudy (Clear) 07/29/18 14:23 Urine pH 5.0 (5.0-7.0) 07/29/18 14:23 Ur Specific [place] 1.031 (1.003-1.030) H 07/29/18 14:23 Urine Protein 100 mg/dl mg/dL (Negative) 07/29/18 14:23 Urine Glucose (UA) Neg mg/dL (Negative) 07/29/18 14:23 Urine Ketones 20 mg/dL (Negative) 07/29/18 14:23 Urine Blood Sm (Negative) 07/29/18 14:23 Urine Nitrite Neg (Negative) 07/29/18 14:23 Urine Bilirubin Neg (Negative) 07/29/18 14:23 Urine Urobilinogen 4.0 mg/dL (<2.0) 07/29/18 14:23 Ur Leukocyte Esterase Mod (Negative) 07/29/18 14:23 Urine WBC (Auto) 13.0 /HPF (0.0-6.0) H 07/29/18 14:23 Urine RBC (Auto) 4.0 /HPF (0.0-6.0) 07/29/18 14:23 U Epithel Cells (Auto) 9.0 /HPF (0-13.0) 07/29/18 14:23 Urine Bacteria (Auto) 1+ /HPF (Negative) 07/29/18 14:23 Urine Mucus 3+ /HPF 07/29/18 14:23 Nutrition/Malnutrition Assess - Dietary Evaluation Nutrition/Malnutrition Findings: Nutrition Notes Start: 07/31/18 15:30 Freq: Status: Discharge Protocol: Document 07/31/18 15:30 RM (Rec: 07/31/18 15:33 RM [id number]) Nutrition Notes Need for Assessment generated from: MD Order Initial or Follow up Assessment Other Pertinent Diagnosis Dementia, SIRS, UTI, Dehydration Current Diet Cardiac Labs/Tests Reviewed Pertinent Medications Reviewed Height 5 ft 3 in Weight 72.575 kg [place] Body Weight (kg) 52.27 BMI 28.3 Subjective/Other Information Consulted for malnutrition. 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 Stated that the facility meals don't have any flavor and that she ate 1/3 of her lunch today. Declined regular ONS d/t disliking it and declined Ensure Clear d/t similarity to juice. Unsure of UBW. Percent of energy/protein needs met: 45%/38% Burn Absent Trauma Absent #1 Nutrition Diagnosis Inadequate oral intake Etiology food preferences As Evidenced by Signs and Symptoms pt statement that she ate 1/3 of her lunch Is patient on ventilator? No Is Patient Ambulatory and/or Out of Bed Yes REE-(Fishers-St. Jeor-ambulatory/OOB) [ [id number] [id number]] Calculation Used for Recommendations [place]-St Jeor Additional Notes Protein Needs: 73-87g (1-1.2g/ kg) Fluid Needs: 1 ml/kcal Nutrition Intervention Change Diet Order: Regular Goal #1 Meet at least 75% of calorie and protein needs via PO intakes Anticipated Discharge Needs: Regular diet Follow-Up By: 08/04/18 Additional Comments Follow for PO and ONS intakes
--- NOTE | 2018-07-31 18:08 | Event Note ---
Date: 07/31/18 [id number]
[2018-07-31] MEDS: LOVENOX SUB-Q SCH (22:36)
--- NOTE | 2018-08-01 02:11 | Consultation ---
HISTORY OF PRESENT ILLNESS: I saw the patient, a 73-year-old female in the medical floor. The patient's most of the information came from medical record, nursing staff and from the patient. The patient has a past history of dementia. As per the information, she was admitted with confusion and loss of appetite for a few weeks prior to admission. No fever, chills, no falls, no nausea, no vomiting, no diarrhea, no bleeding. She was admitted for possible UTI and encephalopathy/volume depletion. She is on antibiotics. Blood tests showed leukocytosis with lymphocytosis. I have been asked to evaluate the patient for this. At this time, no headache, no visual disturbances. No ear discharge, no chest pain, no palpitations, no abdominal pain, no vomiting, no diarrhea, no dysuria. The patient is answering simple questions. PAST MEDICAL HISTORY: Dementia. PAST SURGICAL HISTORY: Nil. SOCIAL HISTORY: Single. No history of smoking. FAMILY HISTORY: Not available. ALLERGIES: None. MEDICATIONS: Present medications include albuterol, Lovenox, Zofran, ceftriaxone. PHYSICAL EXAMINATION: VITAL SIGNS: Temperature 97, pulse 75, respirations 18, BP is 97/48. HEENT: Mild pallor, no icterus. NECK: No neck lymph nodes. HEART: S1, S2. LUNGS: Clear to auscultation anteriorly. ABDOMEN: Soft. EXTREMITIES: No calf tenderness. NEUROLOGIC: Alert, awake, answers simple questions. LABORATORY DATA: White cell at admission was 31 and now 21, hemoglobin 9.6, MCV 77, platelet 169. Potassium is 3.6, creatinine 0.6, calcium 9.2, bilirubin 2.1, TSH 0.4. RADIOLOGY STUDIES: Abdominal CT and CT head was done. This showed splenomegaly of [address] head shows focal areas of low attenuation in right gilberto ____ MRI suggested. ASSESSMENT AND PLAN: 1. Leukocytosis, predominantly lymphocytosis, this could be chronic lymphocytic leukemia; however, there was no lymphadenopathy with the chronic lymphocytic leukemia. This would be stage 0. We will do flow cytometry and follow up the patient. 2. Anemia. MCV is low. We will do deficiency investigations. 3. Abnormal bilirubin. 4. Radiology shows splenomegaly. 5. Mention of abnormality on CT head. 6. Being treated for urinary tract infection. I will follow the patient during inpatient stay and then in the clinic setting. [facility]# [id number] NANCY/OPHELIA
[2018-08-01 06:57] LABS: Hemoglobin 9.1 gm/dl (10.1-14.3); Mean Corpuscular HGB Conc 31 % (30-34); Mean Corpuscular Volume 77 fl (79-97); Platelet Count 140 K/mm3 (140-440); Red Blood Count 3.75 M/mm3 (3.65-5.03); Red Cell Distribution Width 14.6 % (13.2-15.2)
[2018-08-01 07:47] LABS: Iron 49 ug/dL (37-170); Total Iron Binding Capacity 152 mcg/dL (250-450)
[2018-08-01 09:01] LABS: Basophils % (Manual) 0 % (0.0-1.8); Eosinophils % (Manual) 0 % (0.0-4.3); Total Cells Counted 100
[2018-08-01 09:02] LABS: Anisocytosis 1+
[2018-08-01 09:03] LABS: Platelet Estimate Consistent w Auto
[2018-08-01] MEDS: SODIUM CHLORIDE FLUSH SYRINGE 10 ML IV SCH (10:16)
--- NOTE | 2018-08-01 10:36 | Progress Note ---
Hospitalist Physical - Constitutional Vitals: Temp Pulse Resp BP Pulse Ox 98.1 F 60 18 112/41 95 08/01/18 07:53 08/01/18 08:46 08/01/18 08:46 08/01/18 07:53 08/01/18 09:21 General appearance: Present: no acute distress, mild distress Results - Labs CBC & Chem 7: 08/01/18 06:11 07/30/18 05:24 Labs: Laboratory Last Values WBC 16.4 K/mm3 (4.5-11.0) H 08/01/18 06:11 RBC 3.75 M/mm3 (3.65-5.03) 08/01/18 06:11 Hgb 9.1 gm/dl (10.1-14.3) L 08/01/18 06:11 Hct 29.0 % (30.3-42.9) L 08/01/18 06:11 MCV 77 fl (79-97) L 08/01/18 06:11 MCH 24 pg (28-32) L 08/01/18 06:11 MCHC 31 % (30-34) 08/01/18 06:11 RDW 14.6 % (13.2-15.2) 08/01/18 06:11 Plt Count 140 K/mm3 (140-440) 08/01/18 06:11 Lymph % (Auto) [employer] 08/01/18 06:11 Gilchrist % (Auto) [employer] 07/30/18 05:24 Eos % (Auto) [employer] 07/30/18 05:24 Baso % (Auto) [employer] 07/30/18 05:24 Lymph # [employer] 08/01/18 06:11 Gilchrist # [employer] 07/30/18 05:24 Eos # [employer] 07/30/18 05:24 Baso # [employer] 07/30/18 05:24 Add Manual Diff Complete 08/01/18 06:11 Total Counted 100 08/01/18 06:11 Seg Neutrophils % [employer] 08/01/18 06:11 Seg Neuts % (Manual) 12.0 % (40.0-70.0) L 08/01/18 06:11 Band Neutrophils % 0 % 08/01/18 06:11 Lymphocytes % (Manual) 86.0 % (13.4-35.0) H 08/01/18 06:11 Reactive Lymphs % (Man) 0 % 08/01/18 06:11 Monocytes % (Manual) 2.0 % (0.0-7.3) 08/01/18 06:11 Eosinophils % (Manual) 0 % (0.0-4.3) 08/01/18 06:11 Basophils % (Manual) 0 % (0.0-1.8) 08/01/18 06:11 Metamyelocytes % 0 % 08/01/18 06:11 Myelocytes % 0 % 08/01/18 06:11 Promyelocytes % 0 % 08/01/18 06:11 Blast Cells % 0 % 08/01/18 06:11 Nucleated RBC % Not Reportable 08/01/18 06:11 Seg Neutrophils # [employer] 07/30/18 05:24 Seg Neutrophils # Man 2.0 K/mm3 (1.8-7.7) 08/01/18 06:11 Band Neutrophils # 0.0 K/mm3 08/01/18 06:11 Lymphocytes # (Manual) 14.1 K/mm3 (1.2-5.4) H 08/01/18 06:11 Abs React Lymphs (Man) 0.0 K/mm3 08/01/18 06:11 Monocytes # (Manual) 0.3 K/mm3 (0.0-0.8) 08/01/18 06:11 Eosinophils # (Manual) 0.0 K/mm3 (0.0-0.4) 08/01/18 06:11 Basophils # (Manual) 0.0 K/mm3 (0.0-0.1) 08/01/18 06:11 Metamyelocytes # 0.0 K/mm3 08/01/18 06:11 Myelocytes # 0.0 K/mm3 08/01/18 06:11 Promyelocytes # 0.0 K/mm3 08/01/18 06:11 Blast Cells # 0.0 K/mm3 08/01/18 06:11 WBC Morphology Not Reportable 08/01/18 06:11 Hypersegmented Neuts Not Reportable 08/01/18 06:11 Hyposegmented Neuts Not Reportable 08/01/18 06:11 Hypogranular Neuts Not Reportable 08/01/18 06:11 Smudge Cells Not Reportable 08/01/18 06:11 Toxic Granulation Not Reportable 08/01/18 06:11 Toxic Vacuolation Not Reportable 08/01/18 06:11 Dohle Bodies Not Reportable 08/01/18 06:11 Pelger-Huet Anomaly Not Reportable 08/01/18 06:11 Saleem Rods Not Reportable 08/01/18 06:11 Platelet Estimate Consistent w auto 08/01/18 06:11 Clumped Platelets Not Reportable 08/01/18 06:11 Plt Clumps, EDTA Not Reportable 08/01/18 06:11 Large Platelets Not Reportable 08/01/18 06:11 Giant Platelets Not Reportable 08/01/18 06:11 Platelet Satelliting Not Reportable 08/01/18 06:11 Plt Morphology Comment Not Reportable 08/01/18 06:11 RBC Morphology Not Reportable 08/01/18 06:11 Dimorphic RBCs Not Reportable 08/01/18 06:11 Polychromasia Not Reportable 08/01/18 06:11 Hypochromasia Not Reportable 08/01/18 06:11 Poikilocytosis Not Reportable 08/01/18 06:11 Anisocytosis 1+ 08/01/18 06:11 Microcytosis Not Reportable 08/01/18 06:11 Macrocytosis Not Reportable 08/01/18 06:11 Spherocytes Not Reportable 08/01/18 06:11 Pappenheimer Bodies Not Reportable 08/01/18 06:11 Sickle Cells Not Reportable 08/01/18 06:11 Target Cells Not Reportable 08/01/18 06:11 Tear Drop Cells Not Reportable 08/01/18 06:11 Ovalocytes Not Reportable 08/01/18 06:11 Helmet Cells Not Reportable 08/01/18 06:11 Hester-Bryant Bodies Not Reportable 08/01/18 06:11 Millen Rings Not Reportable 08/01/18 06:11 [place] Cells Not Reportable 08/01/18 06:11 Bite Cells Not Reportable 08/01/18 06:11 Crenated Cell Not Reportable 08/01/18 06:11 Elliptocytes Not Reportable 08/01/18 06:11 Acanthocytes (Spur) Not Reportable 08/01/18 06:11 Rouleaux Not Reportable 08/01/18 06:11 Hemoglobin C Crystals Not Reportable 08/01/18 06:11 Schistocytes Not Reportable 08/01/18 06:11 Malaria parasites Not Reportable 08/01/18 06:11 Akash Bodies Not Reportable 08/01/18 06:11 Hem Pathologist Commnt No 08/01/18 06:11 Sodium 144 mmol/L (137-145) 07/30/18 05:24 Potassium 3.6 mmol/L (3.6-5.0) 07/30/18 05:24 Chloride 104.1 mmol/L (98-107) 07/30/18 05:24 Carbon Dioxide 21 mmol/L (22-30) L 07/30/18 05:24 Anion Gap 23 mmol/L 07/30/18 05:24 BUN 20 mg/dL (7-17) H 07/30/18 05:24 Creatinine 0.6 mg/dL (0.7-1.2) L 07/30/18 05:24 Estimated GFR > 60 ml/min 07/30/18 05:24 BUN/Creatinine Ratio 33 % 07/30/18 05:24 Glucose 86 mg/dL (65-100) 07/30/18 05:24 Lactic Acid 1.00 mmol/L (0.7-2.0) 07/29/18 21:10 Calcium 9.2 mg/dL (8.4-10.2) 07/30/18 05:24 Iron 49 ug/dL (37-170) 08/01/18 06:11 TIBC 152 mcg/dL (250-450) L 08/01/18 06:11 Total Bilirubin 2.10 mg/dL (0.1-1.2) H 07/29/18 12:47 AST 21 units/L (5-40) 07/29/18 12:47 ALT < 5 units/L (7-56) L 07/29/18 12:47 Alkaline Phosphatase 56 units/L (35-129) 07/29/18 12:47 Total Protein 7.5 g/dL (6.3-8.2) 07/29/18 12:47 Albumin 4.6 g/dL (3.9-5) 07/29/18 12:47 Albumin/Globulin Ratio 1.6 % 07/29/18 12:47 Lipase 126 units/L (13-60) H 07/29/18 12:47 Vitamin B12 393.9 pg/mL (211-911) 08/01/18 06:11 Folate 9.04 ng/mL (7.3-26.0) 08/01/18 06:11 TSH 0.438 mlU/mL (0.270-4.200) 07/29/18 20:15 Free T4 1.23 ng/dL (0.76-1.46) 07/29/18 20:15 Urine Color Josselyn (Yellow) 07/29/18 14:23 Urine Turbidity Slightly-cloudy (Clear) 07/29/18 14:23 Urine pH 5.0 (5.0-7.0) 07/29/18 14:23 Ur Specific [place] 1.031 (1.003-1.030) H 07/29/18 14:23 Urine Protein 100 mg/dl mg/dL (Negative) 07/29/18 14:23 Urine Glucose (UA) Neg mg/dL (Negative) 07/29/18 14:23 Urine Ketones 20 mg/dL (Negative) 07/29/18 14:23 Urine Blood Sm (Negative) 07/29/18 14:23 Urine Nitrite Neg (Negative) 07/29/18 14:23 Urine Bilirubin Neg (Negative) 07/29/18 14:23 Urine Urobilinogen 4.0 mg/dL (<2.0) 07/29/18 14:23 Ur Leukocyte Esterase Mod (Negative) 07/29/18 14:23 Urine WBC (Auto) 13.0 /HPF (0.0-6.0) H 07/29/18 14:23 Urine RBC (Auto) 4.0 /HPF (0.0-6.0) 07/29/18 14:23 U Epithel Cells (Auto) 9.0 /HPF (0-13.0) 07/29/18 14:23 Urine Bacteria (Auto) 1+ /HPF (Negative) 07/29/18 14:23 Urine Mucus 3+ /HPF 07/29/18 14:23 Active Medications - Current Medications Current Medications: Generic Name Dose Route Start Last Admin Trade Name Freq PRN Reason Stop Dose Admin Acetaminophen 650 mg 07/29/18 17:25 Tylenol PO Q4H PRN Pain MILD(1-3)/Fever >100.5/MARTELL Albuterol 2.5 mg 07/29/18 17:25 Proventil IH Q4HRT PRN Shortness Of Breath Enoxaparin Sodium 40 mg 07/29/18 22:00 07/31/18 22:36 Lovenox SUB-Q 40 mg QDAY@2200 TISHA Administration Dextrose/Sodium Chloride 1,000 mls @ 125 mls/hr 07/30/18 11:00 07/31/18 22:40 D5/0.45ns IV 125 mls/hr DIRECT TISHA Administration Ondansetron HCl 4 mg 07/29/18 17:25 Zofran IV Q8H PRN Nausea And Vomiting Sodium Chloride 10 ml 07/29/18 22:00 08/01/18 10:16 Sodium Chloride Flush Syringe 10 Ml IV 10 ml BID TISHA Administration Sodium Chloride 10 ml 07/29/18 17:25 Sodium Chloride Flush Syringe 10 Ml IV PRN PRN LINE FLUSH Nutrition/Malnutrition Assess - Dietary Evaluation Nutrition/Malnutrition Findings: Nutrition Notes Start: 07/31/18 15:30 Freq: Status: Active Protocol: Document 07/31/18 15:30 RM (Rec: 07/31/18 15:33 RM [id number]) Nutrition Notes Need for Assessment generated from: MD Order Initial or Follow up Assessment Other Pertinent Diagnosis Dementia, SIRS, UTI, Dehydration Current Diet Cardiac Labs/Tests Reviewed Pertinent Medications Reviewed Height 5 ft 3 in Weight 72.575 kg [place] Body Weight (kg) 52.27 BMI 28.3 Subjective/Other Information Consulted for malnutrition. Pt stated that BLANK[employer] her appetite was poor and she was not eating X 1-2 days. Stated that the facility meals don't have any flavor and that she ate 1/3 of her lunch today. Declined regular ONS d/t disliking it and declined Ensure Clear d/t similarity to juice. Unsure of UBW. Percent of energy/protein needs met: 45%/38% Burn Absent Trauma Absent #1 Nutrition Diagnosis Inadequate oral intake Etiology food preferences As Evidenced by Signs and Symptoms pt statement that she ate 1/3 of her lunch Is patient on ventilator? No Is Patient Ambulatory and/or Out of Bed Yes REE-([facility]. Jeor-ambulatory/OOB) [ [id number] [id number]] Calculation Used for Recommendations [facility] Additional Notes Protein Needs: 73-87g (1-1.2g/ kg) Fluid Needs: 1 ml/kcal Nutrition Intervention Change Diet Order: Regular Goal #1 Meet at least 75% of calorie and protein needs via PO intakes Anticipated Discharge Needs: Regular diet Follow-Up By: 08/04/18 Additional Comments Follow for PO and ONS intakes
--- NOTE | 2018-08-01 13:02 | Magnetic Resonance Report ---
PROCEDURE: MR BRAIN WO CON TECHNIQUE: MRI brain without IV contrast. HISTORY: cva COMPARISONS: None currently available. FINDINGS: T2/FLAIR hyperintensities in the periventricular and subcortical white matter are nonspecific. Differ ential diagnosis includes migraines, microvascular ischemic disease, demyelinating process, encephali tis/encephalopathy, and trauma. Midline structures are unremarkable. There is no tonsillar ectopy. Age appropriate goldberg-white matter differentiation is noted. There is no hydrocephalus. There is no mass. There is no hemorrhage. There is no midline shift. There is no restricted diffusion to suggest acute ischemia. The CP angles are grossly noted. Major flow voids are present. Retention cyst in the alveolar recess of the right maxillary sinus measures 1.0 x 2.4 cm. Mild mucosa l thickening both ethmoid sinuses. Globes are intact. Calvarial signal characteristics are grossly unremarkable. Extracranial soft tissues are intact. IMPRESSION: * No acute intracranial findings. * Chronic ischemic disease. This document is electronically signed by Jem Duncan MD., Aug 01 2018 01:00:31 PM ET
--- NOTE | 2018-08-01 13:34 | Discharge Summary ---
Providers - Providers Date of Admission: 07/29/18 17:25 Attending physician: NOHEMY JOHNSON MD 07/30/18 17:15 Consult to Physician [CONS] Routine Comment: Consulting Provider: JEVON GUERRERO Physician Instructions: Reason For Exam: leukocytosis with high lymphocyte count 07/30/18 17:20 Consult to Dietitian/Nutrition [CONS] Routine Physician Instructions: Reason For Exam: Reason for Consult: Malnutrition 07/30/18 20:08 Physical Therapy Evaluation and Treat [CONS] Routine Comment: Reason For Exam: weakness [facility] Condition: Fair Hospital course: 72 y.o female with Dementia presented to ED for evaluation. Pt is confused and unable to provide detailed history. Pt history is provided by her son who is at bedside during exam and interview. As per son, the patient has experienced confusion, and loss of appetite over the past 2 weeks with persistent symptoms over the same time frame. The patient was brought in for her son for confusion and loss of appetite x 2 weeks. urinary tract infection was suspected but ruled out by negative urine culture. She was found to be dehydrated, she had hypernatremia, she was treated with IV fluids, free water deficit was replaced. she also receive physical therapy for generalized weakness. She went on to have an MRI of her brain which essentially ruled out a stroke. -She was also noted to have lymphocyte predominant leukocytosis, which was associated with hyperbilirubinemia. This was suspicions for early CLL, she will follow up with oncology as an outpatient. she was also offered Home health services, but the patient and her son refused Diagnosis Hypernatremia/free water deficit UTI ruled out Dehydration Hyperbilirubinemia Leukocytosis Malnutrition moderate Acute Metabolic Encephalopathy Ataxia, debility, ambulatory dysfunction Dementia Disposition: - TO HOME OR SELFCARE Time spent for discharge: 33 mins Core Measure Documentation - Palliative Care Palliative Care/ Comfort Measures: Not Applicable - Core Measures Any of the following diagnoses?: none Exam - Constitutional Vitals: Temp Pulse Resp BP Pulse Ox 98.1 F 60 18 112/41 95 08/01/18 07:53 08/01/18 08:46 08/01/18 08:46 08/01/18 07:53 08/01/18 09:21 General appearance: Present: no acute distress, well-nourished - EENT Eyes: Present: PERRL ENT: hearing intact, clear oral mucosa - Neck Neck: Present: supple, normal ROM - Respiratory Respiratory effort: normal Respiratory: bilateral: CTA - Cardiovascular Heart Sounds: Present: S1 & S2. Absent: rub, click - Extremities Extremities: pulses symmetrical, No edema Peripheral Pulses: within normal limits - Abdominal General gastrointestinal: Present: soft, non-tender, non-distended, normal bowel sounds Female genitourinary: Present: normal - Integumentary Integumentary: Present: clear, warm, dry - Musculoskeletal Musculoskeletal: gait normal, strength equal bilaterally - Psychiatric Psychiatric: appropriate mood/affect, intact judgment & insight - Neurologic Neurologic: CNII-XII intact, moves all extremities Plan Follow up with: JEVON GUERRERO MD [Staff Physician] - 7 Days VONORE JUSTEN RAMÍREZ MD [Primary Care Provider] - 7 Days
[2018-08-01 13:49] VITALS: BP 114/49
== END 2018-08-01 14:10 | disposition home or self-care (01) | DRG 70 ==
LOC: ED 12:19 → 2B-ACE 17:25
PROVIDERS: ADMIT Internal Medicine; ATTEND Internal Medicine
DX: G93.41 Metabolic encephalopathy (principal); E43 Unspecified severe protein-calorie malnutrition; N30.00 Acute cystitis without hematuria; E87.0 Hyperosmolality and hypernatremia; D72.820 Lymphocytosis (symptomatic); F03.90 Unspecified dementia, unspecified severity, without behavioral disturbance, psychotic disturbance, mood disturbance, and anxiety; E86.0 Dehydration; E80.6 Other disorders of bilirubin metabolism; E86.9 Volume depletion, unspecified; D64.9 Anemia, unspecified; Z68.28 Body mass index [BMI] 28.0-28.9, adult; Z72.89 Other problems related to lifestyle
CPT/HCPCS: 36415; 70450; 70551; 74177; 80048; 80053; 81001; 82140; 82607; 82747; 83550; 83690; 84439; 84443; 85007; 85025; 87040; 87086; 88184; 88185; 94760; 99285; G0378; J0696; J1650; J7030; Q9967

== ENCOUNTER 2018-09-11 12:09 | Inpatient (IN) | payer MEDICARE ==
--- NOTE | 2018-09-11 12:38 | Emergency Department Report ---
ED General Adult HPI - General Chief complaint: Abdominal Pain Stated complaint: NO BOWEL MOVEMENTS Time Seen by Provider: 09/11/18 12:33 Source: patient, family Mode of arrival: Wheelchair Limitations: No Limitations - History of Present Illness Initial comments: 73 year old female who was brought to the emergency department by her son. Is somewhat obsessed with a need for his mother to have a stat bowel movement. He states that she has not had a bowel movement in more than 2 weeks. She was admitted to the hospital in July with the following hospital course. He states that about 2 weeks after that she went to a "hydrotherapy doctor" at [facility]. Patient was given an enema and did have result. Since then he has used a variety of OTC medications to include MiraLAX and mag citrate. He reports no bowel movement. The patient is not vomiting. She is not complaining of abdominal pain. Apparently she was suspected of having chronic lymphocytic leukemia on her previous hospitalization. The patient has not followed up with a primary care physician or oncologist. Hospitalization 07/2018: Hospital course: 72 y.o female with Dementia presented to ED for evaluation. Pt is confused and unable to provide detailed history. Pt history is provided by her son who is at bedside during exam and interview. As per son, the patient has experienced confusion, and loss of appetite over the past 2 weeks with persis tent symptoms over the same time frame. The patient was brought in for her son for confusion and loss of appetite x 2 weeks. urinary tract infection was suspected but ruled out by negative urine culture. She was found to be dehydrated, she had hypernatremia, she was treated with IV fluids, free water deficit was replaced. she also receive physical therapy for generalized weakness. She went on to have an MRI of her brain which essentially ruled out a stroke. -She was also noted to have lymphocyte predominant leukocytosis, which was associated with hyperbilirubinemia. This was suspicions for early CLL, she will follow up with oncology as an outpatient. she was also offered Home health services, but the patient and her son refused Diagnosis Hypernatremia/free water deficit UTI ruled out Dehydration Hyperbilirubinemia Leukocytosis Malnutrition moderate Acute Metabolic Encephalopathy Ataxia, debility, ambulatory dysfunction Dementia -: Sudden Associated Symptoms: denies other symptoms - Related Data Home Medications Medication Instructions Recorded Confirmed Last Taken No Known Home Medications [No 07/29/18 07/29/18 Unknown Reported Home Medications] Allergies Allergy/AdvReac Type Severity Reaction Status Date / Time No Known Allergies Allergy Unverified 07/29/18 12:26 ED Review of Systems ROS: Stated complaint: NO BOWEL MOVEMENTS Other details as noted in HPI Constitutional: denies: chills, fever Eyes: denies: eye pain, eye discharge, vision change ENT: denies: ear pain, throat pain Respiratory: denies: cough, shortness of breath, wheezing Cardiovascular: denies: chest pain, palpitations Endocrine: no symptoms reported Gastrointestinal: denies: abdominal pain, nausea, diarrhea Genitourinary: denies: urgency, dysuria, discharge Musculoskeletal: denies: back pain, joint swelling, arthralgia Skin: denies: rash, lesions Neurological: denies: headache, weakness, paresthesias Psychiatric: denies: anxiety, depression Hematological/Lymphatic: denies: easy bleeding, easy bruising ED Past Medical Hx - Past Medical History Previous Medical History?: No Hx HIV: No - Surgical History Past Surgical History?: No - Social History Smoking Status: Unknown if ever smoked Substance Use Type: None - Medications Home Medications: Home Medications Medication Instructions Recorded Confirmed Last Taken Type No Known Home Medications [No 07/29/18 07/29/18 Unknown History Reported Home Medications] ED Physical Exam - General Limitations: No Limitations General appearance: alert, in no apparent distress - Head Head exam: Present: atraumatic, normocephalic - Eye Eye exam: Present: normal appearance. Absent: scleral icterus - ENT ENT exam: Present: mucous membranes moist - Neck Neck exam: Present: normal inspection. Absent: tenderness, meningismus - Respiratory Respiratory exam: Present: normal lung sounds bilaterally. Absent: respiratory distress - Cardiovascular Cardiovascular Exam: Present: regular rate, tachycardia. Absent: systolic murmur, diastolic murmur, rubs, gallop - GI/Abdominal GI/Abdominal exam: Present: soft, normal bowel sounds. Absent: distended, tenderness, guarding, rebound, rigid - Extremities Exam Extremities exam: Present: normal inspection - Back Exam Back exam: Present: normal inspection - Neurological Exam Neurological exam: Present: alert, oriented X3, CN II-XII intact. Absent: motor sensory deficit - Psychiatric Psychiatric exam: Present: normal affect, normal mood - Skin Skin exam: Present: warm, dry, intact, normal color. Absent: rash ED Course Vital Signs 09/11/18 09/11/18 12:18 12:34 Temperature 98.2 F Pulse Rate 72 120 H Respiratory 18 18 Rate Blood Pressure 104/66 [Left] O2 Sat by Pulse 82 L 100 Oximetry ED Medical Decision Making - Lab Data Result diagrams: 09/11/18 13:11 09/11/18 13:11 Laboratory Results - last 24 hr 09/11/18 09/11/18 09/11/18 13:11 13:11 13:11 WBC 64.7 H* RBC 3.88 Hgb 9.9 L Hct 31.8 MCV 82 MCH 26 L MCHC 31 RDW 19.9 H Plt Count 155 Lymph % (Auto) Automatic Beam Warper Tender Lymph # Automatic Beam Warper Tender Seg Neutrophils % Automatic Beam Warper Tender PT 14.2 INR 1.13 Sodium 140 Potassium 4.2 Chloride 102.8 Carbon Dioxide 23 Anion Gap 18 BUN 20 H Creatinine 1.2 Estimated GFR 53 BUN/Creatinine Ratio 17 Glucose 131 H Calcium 8.9 Magnesium Total Bilirubin 0.60 AST 23 ALT 14 Alkaline Phosphatase 73 Total Creatine Kinase CK-MB (CK-2) CK-MB (CK-2) Rel Index Troponin T NT-Pro-B Natriuret Pep Total Protein 7.1 Albumin 3.2 L Albumin/Globulin Ratio 0.8 Lipase 42 Blood Type Antibody Screen 09/11/18 09/11/18 13:11 13:11 WBC RBC Hgb Hct MCV MCH MCHC RDW Plt Count Lymph % (Auto) Lymph # Seg Neutrophils % PT INR Sodium Potassium Chloride Carbon Dioxide Anion Gap BUN Creatinine Estimated GFR BUN/Creatinine Ratio Glucose Calcium Magnesium 2.00 Total Bilirubin AST ALT Alkaline Phosphatase Total Creatine Kinase 51 CK-MB (CK-2) 3.4 CK-MB (CK-2) Rel Index 6.6 H Troponin T 0.020 NT-Pro-B Natriuret Pep 672.7 Total Protein Albumin Albumin/Globulin Ratio Lipase Blood Type O POSITIVE Antibody Screen Negative - EKG Data -: EKG Interpreted by Me EKG shows normal: sinus rhythm Rate: normal - EKG Data Interpretation: other (infero-lateral ST depression T-wave inversion consider ischemia) - Radiology Data Radiology results: image reviewed (abdominal films shows a abnormality of the lower right rib. Radiologist thinks this might be acute. However I think this is possibly a pathological area. The patient has had no complaints of pain at that area or trauma.) Critical care attestation.: If time is entered above; I have spent that time in minutes in the direct care of this critically ill patient, excluding procedure time. ED Disposition Clinical Impression: Volume depletion, Leukemoid reaction, SIRS (systemic inflammatory response syndrome), Abnormal EKG Hypotension Qualifiers: Hypotension type: other hypotension type Qualified Code(s): I95.89 - Other hypotension Lymphoma Qualifiers: Lymphoma type: unspecified type Lymphoma site: unspecified region Qualified Code(s): C85.90 - Non-Hodgkin lymphoma, unspecified, unspecified site Disposition: OP ADMIT IP TO THIS HOSP Is pt being admited?: Yes Does the pt Need Aspirin: Yes Condition: Stable Instructions: Abdominal Pain (ED) Referrals: PRIMARY CARE, [Primary Care Provider] - 3-5 Days Time of Disposition: 15:11
[2018-09-11] MEDS ORDERED: NACL 0.9% 1000 ML 1,000 ML IV ONE ×2 (12:50→16:14)
--- NOTE | 2018-09-11 13:01 | XRay Report ---
CHEST ONE VIEW INDICATION: Hypertension. COMPARISON: None similar. FINDINGS: Portable, single, frontal chest radiograph demonstrates normal cardiomediastinal silhouette. Clear lungs. Unremarkable bones. Extrinsic EKG leads. CONCLUSION: No acute disease in the chest. Thank you for the opportunity to participate in this patient's care.
[2018-09-11 13:43] LABS: Hematocrit 31.8 % (30.3-42.9); Hemoglobin 9.9 gm/dl (10.1-14.3); Mean Corpuscular HGB Conc 31 % (30-34); Mean Corpuscular Volume 82 fl (79-97); Platelet Count 155 K/mm3 (140-440); Red Blood Count 3.88 M/mm3 (3.65-5.03); Red Cell Distribution Width 19.9 % (13.2-15.2)
[2018-09-11 13:57] LABS: Alanine Aminotransferase 14 units/L (7-56); Albumin 3.2 g/dL (3.9-5); BUN/Creatinine Ratio 17; Blood Urea Nitrogen 20 mg/dL (7-17); Calcium 8.9 mg/dL (8.4-10.2); Hemolysis Index 28
[2018-09-11 14:02] LABS: Creatine Kinase MB 3.4 ng/mL (0.0-4.0)
[2018-09-11 14:19] LABS: Free T4 (Free Thyroxine) 1.32 ng/dL (0.76-1.46)
[2018-09-11 14:26] LABS: Bilirubin,Urine SM (Negative); Blood,Urine NEG (Negative); Color,Urine Amber (Yellow); Hyaline Casts,Urine 1 /LPF; Mucus,Urine FEW /HPF
[2018-09-11 14:38] LABS: Ictotest,Urine Negative (Negative)
[2018-09-11 14:38] LABS: Bilirubin,Direct < 0.2 mg/dL (0-0.2)
--- NOTE | 2018-09-11 14:41 | History and Physical Report ---
History of Present Illness Chief complaint: She wont eat, she wont listen to me History of present illness: 73 YO Female with Dementia, Lukemia presents to ED for evaluation. Pt is confused and unable to provide detailed history. Pt history is provided by her son who is at bedside during exam and interview. As per son, the patient has experienced confusion, and loss of appetite over the past 1month with persistent symptoms over the same time frame. Pt son states that his mother only wants to eat fast food, and that he is trying to keep her healthy. No reports of fever, chills, CP, Palpitations, Falls, NVD, Syncope, skin rash, BRBPR, or recent ill contacts. Pt transported to [facility] via private vehicle. Pt seen and evaluated in ED and found to have SIRS secondary to UTI, Hypernatremia, Volume Depletion, as well as Encephalopathy. Pt admitted to [facility] and initiated on IV antibiotic therapy as well as IVF resuscitation therapy. 35 minutes additional time spent discussing care plan with son. Past History Past Medical History: cancer, other (Dementia) Past Surgical History: No surgical history, Other (reviewed) Social history: single, lives with family. denies: smoking, alcohol abuse, prescription drug abuse Family history: no significant family history (reviewed) Medications and Allergies Allergies Allergy/AdvReac Type Severity Reaction Status Date / Time No Known Allergies Allergy Unverified 07/29/18 12:26 Home Medications Medication Instructions Recorded Confirmed Last Taken Type No Known Home Medications [No 07/29/18 07/29/18 Unknown History Reported Home Medications] Review of Systems ROS unobtainable: due to mental status Exam - Constitutional Vitals: Temp Pulse Resp BP Pulse Ox 98.2 F 120 H 18 104/66 100 09/11/18 12:34 09/11/18 12:34 09/11/18 12:34 09/11/18 12:34 09/11/18 12:34 General appearance: Present: mild distress - EENT Eyes: Present: PERRL ENT: hearing intact, clear oral mucosa - Neck Neck: Present: supple, normal ROM - Respiratory Respiratory effort: normal Respiratory: bilateral: CTA - Cardiovascular Heart Sounds: Present: S1 & S2. Absent: rub, click - Extremities Extremities: pulses symmetrical, No edema Peripheral Pulses: within normal limits - Abdominal General gastrointestinal: Present: soft, non-tender, non-distended, normal bowel sounds Female genitourinary: Present: normal - Integumentary Integumentary: Present: clear, warm, dry - Musculoskeletal Musculoskeletal: gait normal, strength equal bilaterally - Psychiatric Psychiatric: no appropriate mood/affect, no intact judgment & insight, no memory intact - Neurologic Neurologic: CNII-XII intact, moves all extremities, no gait normal Results - Labs CBC & Chem 7: 09/11/18 13:11 09/11/18 13:11 Labs: Abnormal lab results 09/11/18 09/11/18 09/11/18 Range/Units 13:11 13:11 13:11 WBC 64.7 H* (4.5-11.0) K/mm3 Hgb 9.9 L (10.1-14.3) gm/dl MCH 26 L (28-32) pg RDW 19.9 H (13.2-15.2) % BUN 20 H (7-17) mg/dL Glucose 131 H (65-100) mg/dL CK-MB (CK-2) Rel Index 6.6 H (0-4) Albumin 3.2 L (3.9-5) g/dL Assessment and Plan - Patient Problems (1) Encephalopathy Current Visit: Yes Status: Acute Plan to address problem: CT Head, neuro check, IVF resuscitation therapy, urinalysis, CBC, CMP (2) Acute leukemia Current Visit: Yes Status: Acute Qualifiers: Leukemia Active/Remission status: in remission Qualified Code(s): C95.01 - Acute leukemia of unspecified cell type, in remission Plan to address problem: Oncology consulted, supportive care (3) Right rib fracture Current Visit: Yes Status: Acute Qualifiers: Encounter type: initial encounter Plan to address problem: Right 9th Pathologic rib Fracture. supportive care, (4) Debility Current Visit: Yes Status: Acute Plan to address problem: PT/OT consulted, (5) DVT prophylaxis Current Visit: No Status: Acute Plan to address problem: SCD to BLE while in bed,
--- NOTE | 2018-09-11 14:47 | XRay Report ---
ABDOMEN RADIOGRAPH INDICATION: Abdominal pain. COMPARISON: None similar. FINDINGS: Frontal abdominal radiograph demonstrates nonobstructive bowel gas pattern without focal suspicious calcification, pneumatosis or pneumoperitoneum. Lumbar spondylosis with slight dextrocurvature. Mild left acetabular degenerative spurring. A right 9th rib fracture laterally possible. CONCLUSION: No acute abdominal radiographic abnormality, though a right lower rib fracture suspected, as described. Directed clinical correlation recommended. Thank you for the opportunity to participate in this patient's care.
[2018-09-11] MEDS ORDERED: SODIUM CHLORIDE FLUSH SYRINGE 10 ML IV PRN (14:58)
[2018-09-11] MEDS ORDERED: ZOFRAN IV PRN (14:58)
[2018-09-11] MEDS ORDERED: PROVENTIL IH PRN (14:58)
[2018-09-11] MEDS ORDERED: TYLENOL PO PRN (14:58)
[2018-09-11 15:26] LABS: Basophils % (Manual) 0 % (0.0-1.8); Eosinophils % (Manual) 0 % (0.0-4.3); Monocytes % (Manual) 1.5 % (0.0-7.3); Total Cells Counted 200
[2018-09-11 15:27] LABS: Anisocytosis 1+; Platelet Estimate Consistent w Auto
[2018-09-11 15:28] LABS: Hypochromasia 1+; Macrocytosis 1+
[2018-09-11 15:29] LABS: Poikilocytosis 1+; Tear Drop Cells Rare
[2018-09-11 15:30] LABS: Ovalocytes Few
[2018-09-11] MEDS ORDERED: NACL 0.9% 1000 ML 1,000 ML ONE (16:02)
--- NOTE | 2018-09-11 16:56 | Cat Scan Report ---
PROCEDURE: CT CHEST W CON TECHNIQUE: Computerized axial tomography of the chest was performed during the IV injection of iodin ated nonionic contrast. CT DOSE LENGTH PRODUCT: 2691.3 mGycm HISTORY: pain FINDINGS: Contrast-enhanced CT angiography of the chest was performed following the intravenous administration of iodinated contrast. Sagittal and coronal MIP three-dimensional reformatted images were generated. These images demonstrate no CT evidence of pulmonary thromboembolic disease. There is no aortic disse ction. There is no consolidative pulmonary infiltrate. There is no pleural or pericardial effusion. There are multiple bilateral enlarged axillary lymph nodes. Right axillary node, image 15 measures 2. 0 x 1.5 cm. Largest left axillary lymph node measures 2.1 x 1.0 cm. No significant mediastinal lymphadenopathy is seen. In the upper abdomen, the adrenal glands are within normal limits. The spleen is top normal in size a t 11.4 x 5.4 cm. There are liver cysts. IMPRESSION: No CT evidence of pulmonary thromboembolic disease Bilateral axillary lymphadenopathy All CT scans at this location are performed using dose modulation techniques as appropriate to a perf ormed exam including the following: automated exposure control, adjustment of the mA and/or kV accord ing to patient size (this includes techniques or standardized protocols for targeted exams where dose is matched to indication/reason for exam, i.e.extremities or head; use of imaging [id number] This document is electronically signed by Vincenzo Lewis MD., September 11 2018 04:54:56 PM ET
[2018-09-11 17:53] LABS: INR 1.21 (0.87-1.13)
[2018-09-11 17:54] LABS: Partial Thromboplastin Time 24.9 Sec. (24.2-36.6)
--- NOTE | 2018-09-11 17:59 | Cat Scan Report ---
PROCEDURE: CT ABDOMEN chest PELVIS W CON TECHNIQUE: Computerized axial tomography of the chest pain abdomen and pelvis was performed after th e IV injection of iodinated nonionic contrast. CT DOSE LENGTH PRODUCT: mGycm HISTORY: pain COMPARISONS: None . FINDINGS: No evidence for mediastinal mass or pathologic mediastinal lymph node enlargement. Thyroid is promine nt in size the small nodular density present. There is bilateral axillary lymph node enlargement with lymph nodes measuring up to 2.5 x 1.1 and 1.8 x 1.3 cm Heart and great vessels are unremarkable. No evidence for pulmonary infiltrate. No pleural effusion seen. Liver: Several nonenhancing well-defined low-density foci are present within the liver parenchyma mos t consistent with cysts measuring up to 2 cm in diameter. The spleen is borderline enlarged measuring 11.6 x 9.3 x 12.5 cm Gallbladder and biliary system: Normal. Pancreas: Normal. Adrenals: Normal. Kidneys: There is a 1.4 cm right renal lower pole cyst. Kidneys are otherwise unremarkable. GI tract: Normal. Lymph nodes and mesentery: There are some mildly prominent inguinal lymph nodes measuring up to 1.0 x 1.6 cm Vasculature: Normal.. Bladder: Normal. Reproductive organs: Normal. Peritoneum: No free fluid. Musculoskeletal structures: There is degenerative disc disease at L3-L4 there is a prominent Schmorl' s node superior endplate of L4 Other: None. IMPRESSION: Enlarged axillary and inguinal lymph nodes may reflect adenopathy. Mild splenomegaly Right renal and hepatic cysts as noted Degenerative disc disease L3-L4 This document is electronically signed by Chetan De Oliveira MD., September 11 2018 05:57:13 PM ET
[2018-09-11] MEDS: SODIUM CHLORIDE FLUSH SYRINGE 10 ML IV SCH (23:07)
[2018-09-12] MEDS ORDERED: FLEET MINERAL OIL PR ONE (07:36)
--- NOTE | 2018-09-12 07:37 | Progress Note ---
Assessment and Plan Assessment and plan: 73 year old female who was brought to the emergency department by her son. Is somewhat obsessed with a need for his mother to have a stat bowel movement. He states that she has not had a bowel movement in more than 2 weeks. She was admitted to the hospital in July with the following hospital course. He states that about 2 weeks after that she went to a "hydrotherapy doctor" at [place]. Patient was given an enema and did have result. Since then he has used a variety of OTC medications to include MiraLAX and mag citrate. He reports no bowel movement. The patient is not vomiting. She is not complaining of abdominal pain. Apparently she was suspected of having chronic lymphocytic leukemia on her previous hospitalization. The patient has not followed up with a primary care physician or oncologist. Hospitalization 07/2018: Hospital course: 72 y.o female with Dementia presented to ED for evaluation. Pt is confused and unable to provide detailed history. Pt history is provided by her son who is at bedside during exam and interview. As per son, the patient has experienced confusion, and loss of appetite over the past 2 weeks with persistent symptoms over the same time frame. The patient was brought in for her son for confusion and loss of appetite x 2 weeks. urinary tract infection was suspected but ruled out by negative urine culture. She was found to be dehydrated, she had hypernatremia, she was treated with IV fluids, free water deficit was replaced. she also receive physical therapy for generalized weakness. She went on to have an MRI of her brain which essentially ruled out a stroke. -She was also noted to have lymphocyte predominant leukocytosis, which was associated with hyperbilirubinemia. This was suspicions for early CLL, she will follow up with oncology as an outpatient. she was also offered Home health services, but the patient and her son refused Diagnosis Hypernatremia/free water deficit UTI ruled out Dehydration Hyperbilirubinemia Leukocytosis Malnutrition moderate Acute Metabolic Encephalopathy Ataxia, debility, ambulatory dysfunction Dementia -: Sudden - Patient Problems (1) Encephalopathy Current Visit: Yes Status: Acute Plan to address problem: CT Head negative, neuro check, IVF resuscitation therapy, urinalysis, CBC, CMP Resolved (2) Acute leukemia Current Visit: Yes Status: Acute Qualifiers: Leukemia Active/Remission status: in remission Qualified Code(s): C95.01 - Acute leukemia of unspecified cell type, in remission Plan to address problem: Oncology consulted, supportive care (3) Right rib fracture Current Visit: Yes Status: Acute Qualifiers: Encounter type: initial encounter Plan to address problem: Right 9th Pathologic rib Fracture. supportive care, (4) Debility Current Visit: Yes Status: Acute Plan to address problem: PT/OT consulted, (5) Poor Po intake Discussed with patients son, will obtain optical engineer consult (6)Constipation No clear evidence of fecal matter in bowel,. will trial fleet enema. Poor PO intake could be contributory (7)DVT prophylaxis Current Visit: No Status: Acute Plan to address problem: SCD to BLE while in bed, History Interval history: Per nursing staff, patient only ate 25% of tray and also limited liquid Patient seen and examined. requesting her son and wants to go home. Discussed with the son who is concerned that the patient has not been eating and will like me to write a prescription for her to eat healthy food. Hospitalist Physical - Physical exam Narrative exam: VITAL SIGNS: Reviewed. GENERAL: The patient appeared well nourished and normally developed, otherwise elderly patient, Vital signs as documented. HEAD: No signs of head trauma. EYES: Pupils are equal. Extraocular motions intact. EARS: Hearing grossly intact. MOUTH: Oropharynx is normal. NECK: No adenopathy, no JVD. CHEST: Chest with clear breath sounds bilaterally. No wheezes, rales, or rhon chi. CARDIAC: Regular rate and rhythm. S1 and S2, without murmurs, gallops, or rubs. VASCULAR: No Edema. Peripheral pulses normal and equal in all extremities. ABDOMEN: Soft, non tender and non distended. No rebound or guarding, and no masses palpated. Bowel Sounds normal. MUSCULOSKELETAL: Good range of motion of all major joints. Extremities without clubbing, cyanosis or edema. NEUROLOGIC EXAM: Alert and oriented x 2 No focal sensory or strength deficits. Speech normal. Follows commands. PSYCHIATRIC: Mood normal. SKIN: No rash or lesions. - Constitutional Vitals: Temp Pulse Resp BP Pulse Ox 98.0 F 76 18 110/45 97 09/12/18 02:36 09/12/18 02:36 09/12/18 02:36 09/12/18 02:36 09/12/18 02:36 General appearance: Present: mild distress Results - Labs CBC & Chem 7: 09/13/18 03:21 09/13/18 03:21 Labs: Laboratory Last Values WBC 64.7 K/mm3 (4.5-11.0) H* 09/11/18 13:11 RBC 3.88 M/mm3 (3.65-5.03) 09/11/18 13:11 Hgb 9.9 gm/dl (10.1-14.3) L 09/11/18 13:11 Hct 31.8 % (30.3-42.9) 09/11/18 13:11 MCV 82 fl (79-97) 09/11/18 13:11 MCH 26 pg (28-32) L 09/11/18 13:11 MCHC 31 % (30-34) 09/11/18 13:11 RDW 19.9 % (13.2-15.2) H 09/11/18 13:11 Plt Count 155 K/mm3 (140-440) 09/11/18 13:11 Lymph % (Auto) Litigation Secretary 09/11/18 13:11 Lymph # Litigation Secretary 09/11/18 13:11 Add Manual Diff Complete 09/11/18 13:11 Total Counted 200 09/11/18 13:11 Seg Neutrophils % Litigation Secretary 09/11/18 13:11 Seg Neuts % (Manual) 7.0 % (40.0-70.0) L 09/11/18 13:11 0 % 09/11/18 13:11 91.5 % (13.4-35.0) H 09/11/18 13:11 Reactive Lymphs % (Man) 0 % 09/11/18 13:11 1.5 % (0.0-7.3) 09/11/18 13:11 0 % (0.0-4.3) 09/11/18 13:11 0 % (0.0-1.8) 09/11/18 13:11 0 % 09/11/18 13:11 0 % 09/11/18 13:11 0 % 09/11/18 13:11 0 % 09/11/18 13:11 Nucleated RBC % Not Reportable 09/11/18 13:11 Seg Neutrophils # Man 4.5 K/mm3 (1.8-7.7) 09/11/18 13:11 Band Neutrophils # 0.0 K/mm3 09/11/18 13:11 59.2 K/mm3 (1.2-5.4) H 09/11/18 13:11 Abs React Lymphs (Man) 0.0 K/mm3 09/11/18 13:11 1.0 K/mm3 (0.0-0.8) H 09/11/18 13:11 0.0 K/mm3 (0.0-0.4) 09/11/18 13:11 0.0 K/mm3 (0.0-0.1) 09/11/18 13:11 0.0 K/mm3 09/11/18 13:11 0.0 K/mm3 09/11/18 13:11 0.0 K/mm3 09/11/18 13:11 Blast Cells # 0.0 K/mm3 09/11/18 13:11 Hypersegmented Neuts Not Reportable 09/11/18 13:11 Hyposegmented Neuts Not Reportable 09/11/18 13:11 Hypogranular Neuts Not Reportable 09/11/18 13:11 Not Reportable 09/11/18 13:11 Not Reportable 09/11/18 13:11 Not Reportable 09/11/18 13:11 Not Reportable 09/11/18 13:11 Not Reportable 09/11/18 13:11 Not Reportable 09/11/18 13:11 Consistent w auto 09/11/18 13:11 Not Reportable 09/11/18 13:11 Plt Clumps, EDTA Not Reportable 09/11/18 13:11 Not Reportable 09/11/18 13:11 Not Reportable 09/11/18 13:11 Not Reportable 09/11/18 13:11 Plt Morphology Comment Not Reportable 09/11/18 13:11 RBC Morphology Not Reportable 09/11/18 13:11 Dimorphic RBCs Not Reportable 09/11/18 13:11 Rare 09/11/18 13:11 1+ 09/11/18 13:11 1+ 09/11/18 13:11 1+ 09/11/18 13:11 Not Reportable 09/11/18 13:11 1+ 09/11/18 13:11 Not Reportable 09/11/18 13:11 Not Reportable 09/11/18 13:11 Not Reportable 09/11/18 13:11 Not Reportable 09/11/18 13:11 Rare 09/11/18 13:11 Few 09/11/18 13:11 Not Reportable 09/11/18 13:11 Not Reportable 09/11/18 13:11 Not Reportable 09/11/18 13:11 Not Reportable 09/11/18 13:11 Not Reportable 09/11/18 13:11 Not Reportable 09/11/18 13:11 Not Reportable 09/11/18 13:11 Acanthocytes (Spur) Not Reportable 09/11/18 13:11 Rouleaux Not Reportable 09/11/18 13:11 Not Reportable 09/11/18 13:11 Not Reportable 09/11/18 13:11 Not Reportable 09/11/18 13:11 Not Reportable 09/11/18 13:11 Hem Pathologist Commnt Sent to pathology 09/11/18 13:11 PT 15.0 Sec. (12.2-14.9) H 09/11/18 17:16 INR 1.21 (0.87-1.13) H 09/11/18 17:16 APTT 24.9 Sec. (24.2-36.6) 09/11/18 17:16 Sodium 140 mmol/L (137-145) 09/11/18 13:11 Potassium 4.2 mmol/L (3.6-5.0) 09/11/18 13:11 Chloride 102.8 mmol/L (98-107) 09/11/18 13:11 Carbon Dioxide 23 mmol/L (22-30) 09/11/18 13:11 18 mmol/L 09/11/18 13:11 BUN 20 mg/dL (7-17) H 09/11/18 13:11 1.2 mg/dL (0.7-1.2) 09/11/18 13:11 Estimated GFR 53 ml/min 09/11/18 13:11 17 % 09/11/18 13:11 Glucose 131 mg/dL (65-100) H 09/11/18 13:11 Calcium 8.9 mg/dL (8.4-10.2) 09/11/18 13:11 Magnesium 2.00 mg/dL (1.7-2.3) 09/11/18 13:11 0.60 mg/dL (0.1-1.2) 09/11/18 13:11 < 0.2 mg/dL (0-0.2) 09/11/18 13:11 0.4 mg/dL 09/11/18 13:11 AST 23 units/L (5-40) 09/11/18 13:11 ALT 14 units/L (7-56) 09/11/18 13:11 73 units/L (35-129) 09/11/18 13:11 51 units/L (30-135) 09/11/18 13:11 CK-MB (CK-2) 3.4 ng/mL (0.0-4.0) 09/11/18 13:11 CK-MB (CK-2) Rel Index 6.6 (0-4) H 09/11/18 13:11 0.020 ng/mL (0.00-0.029) 09/11/18 13:11 NT-Pro-B Natriuret Pep 672.7 pg/mL (0-900) 09/11/18 13:11 7.1 g/dL (6.3-8.2) 09/11/18 13:11 3.2 g/dL (3.9-5) L 09/11/18 13:11 0.8 % 09/11/18 13:11 42 units/L (13-60) 09/11/18 13:11 TSH 3.530 mlU/mL (0.270-4.200) 09/11/18 12:46 Free T4 1.32 ng/dL (0.76-1.46) 09/11/18 12:46 Josselyn (Yellow) 09/11/18 13:40 Clear (Clear) 09/11/18 13:40 5.0 (5.0-7.0) 09/11/18 13:40 Ur Specific [place] 1.026 (1.003-1.030) 09/11/18 13:40 100 mg/dl mg/dL (Negative) 09/11/18 13:40 Neg mg/dL (Negative) 09/11/18 13:40 Tr mg/dL (Negative) 09/11/18 13:40 Neg (Negative) 09/11/18 13:40 Neg (Negative) 09/11/18 13:40 Sm (Negative) 09/11/18 13:40 Negative (Negative) 09/11/18 13:40 4.0 mg/dL (<2.0) 09/11/18 13:40 Ur Leukocyte Esterase Neg (Negative) 09/11/18 13:40 1.0 /HPF (0.0-6.0) 09/11/18 13:40 4.0 /HPF (0.0-6.0) 09/11/18 13:40 U Epithel Cells (Auto) 1.0 /HPF (0-13.0) 09/11/18 13:40 Hyaline Casts 1 /LPF 09/11/18 13:40 Few /HPF 09/11/18 13:40 Blood Type O POSITIVE 09/11/18 13:11 Antibody Screen Negative 09/11/18 13:11 Active Medications - Current Medications Current Medications: Generic Name Dose Route Start Last Admin Trade Name Freq PRN Reason Stop Dose Admin Acetaminophen 650 mg 09/11/18 14:58 Tylenol PO Q4H PRN Pain MILD(1-3)/Fever >100.5/MARTELL Albuterol 2.5 mg 09/11/18 14:58 Proventil IH Q4HRT PRN Shortness Of Breath Mineral Oil 133 ml 09/12/18 07:36 Fleet Mineral Oil CA 09/12/18 07:37 ONCE ONE Mineral Oil 133 ml 09/12/18 07:36 Fleet Mineral Oil CA QDAY PRN Constipation Ondansetron HCl 4 mg 09/11/18 14:58 Zofran IV Q8H PRN Nausea And Vomiting Sodium Chloride 10 ml 09/11/18 22:00 09/11/18 23:07 Sodium Chloride Flush Syringe 10 Ml IV 10 ml BID TISHA Administration Sodium Chloride 10 ml 09/11/18 14:58 Sodium Chloride Flush Syringe 10 Ml IV PRN PRN LINE FLUSH
--- NOTE | 2018-09-12 10:44 | Cat Scan Report ---
PROCEDURE: CT HEAD/BRAIN WO CON TECHNIQUE: A noncontrast CT of the head was performed. HISTORY: confusion COMPARISON: 07/30/2018 FINDINGS: There is moderate cerebral atrophy. There is mild ischemic change in the white matter. There is no acute intracranial hemorrhage. There is no brain edema, mass effect or midline shift. Ventricular size is appropriate for brain volume. There is no abnormal extra-axial fluid collections. There is no skull fracture seen. The visualized paranasal sinuses are clear. IMPRESSION: There is no acute intracranial abnormality seen. This document is electronically signed by Briseida Michel MD., September 12 2018 10:42:55 AM ET
[2018-09-12] MEDS: SODIUM CHLORIDE FLUSH SYRINGE 10 ML IV SCH ×2 (11:28→22:05)
[2018-09-12] MEDS ORDERED: NACL 0.9% 1000 ML 1,000 ML IV ONE (17:12)
[2018-09-13 03:41] LABS: Hematocrit 24.3 % (30.3-42.9); Hemoglobin 7.6 gm/dl (10.1-14.3); Mean Corpuscular HGB Conc 31 % (30-34); Mean Corpuscular Volume 81 fl (79-97); Platelet Count 132 K/mm3 (140-440); Red Blood Count 2.99 M/mm3 (3.65-5.03); Red Cell Distribution Width 19.4 % (13.2-15.2)
[2018-09-13 04:03] LABS: BUN/Creatinine Ratio 20; Blood Urea Nitrogen 16 mg/dL (7-17); Hemolysis Index 7
[2018-09-13] MEDS ORDERED: K-DUR PO NR (07:37)
[2018-09-13] MEDS ORDERED: NACL 0.9% 500 ML 500 ML IV ONE (07:38)
--- NOTE | 2018-09-13 07:46 | Progress Note ---
Assessment and Plan Assessment and plan: 73 year old female who was brought to the emergency department by her son. Is somewhat obsessed with a need for his mother to have a stat bowel movement. He states that she has not had a bowel movement in more than 2 weeks. She was admitted to the hospital in July with the following hospital course. He states that about 2 weeks after that she went to a "hydrotherapy doctor" at [place]. Patient was given an enema and did have result. Since then he has used a variety of OTC medications to include MiraLAX and mag citrate. He reports no bowel movement. The patient is not vomiting. She is not complaining of abdominal pain. Apparently she was suspected of having chronic lymphocytic leukemia on her previous hospitalization. The patient has not followed up with a primary care physician or oncologist. Hospitalization 07/2018: Hospital course: 72 y.o female with Dementia presented to ED for evaluation. Pt is confused and unable to provide detailed history. Pt history is provided by her son who is at bedside during exam and interview. As per son, the patient has experienced confusion, and loss of appetite over the past 2 weeks with persistent symptoms over the same time frame. The patient was brought in for her son for confusion and loss of appetite x 2 weeks. urinary tract infection was suspected but ruled out by negative urine culture. She was found to be dehydrated, she had hypernatremia, she was treated with IV fluids, free water deficit was replaced. she also receive physical therapy for generalized weakness. She went on to have an MRI of her brain which essentially ruled out a stroke. -She was also noted to have lymphocyte predominant leukocytosis, which was associated with hyperbilirubinemia. This was suspicions for early CLL, she will follow up with oncology as an outpatient. she was also offered Home health services, but the patient and her son refused - Patient Problems (1)Metabolic Encephalopathy CT Head negative, secondary to baseline dementia. Down to baseline. (2) Acute leukemia Oncology consulted, supportive care (3) Right rib fracture Right 9th Pathologic rib Fracture. supportive care, (4) Debility PT/OT consulted, (5) Poor Po intake Discussed with patients son, will obtain tour counselor consult add ensure to diet, Marinol if ok with Oncology (6)Constipation No clear evidence of fecal matter in bowel,. will trial fleet enema. Poor PO intake could be contributory (7)DVT prophylaxis Current Visit: No Status: Acute Plan to address problem: SCD to BLE while in bed, Patient is clinically stable, she is at her baseline dementia. Will plan on discharge later today. Continue to encourage PO intake. History Interval history: Per nursing staff, patient only ate 25% of tray and also limited liquid. No new complaints.. still intermittent confusion Patient seen and examined. requesting her son and wants to go home. Discussed with the son who is concerned that the patient has not been eating and will like me to write a prescription for her to eat healthy food. Hospitalist Physical - Physical exam Narrative exam: VITAL SIGNS: Reviewed. GENERAL: The patient appeared well nourished and normally developed, otherwise elderly patient, Vital signs as documented. HEAD: No signs of head trauma. EYES: Pupils are equal. Extraocular motions intact. EARS: Hearing grossly intact. MOUTH: Oropharynx is normal. NECK: No adenopathy, no JVD. CHEST: Chest with clear breath sounds bilaterally. No wheezes, rales, or rhonchi. CARDIAC: Regular rate and rhythm. S1 and S2, without murmurs, gallops, or rubs. VASCULAR: No Edema. Peripheral pulses normal and equal in all extremities. ABDOMEN: Soft, non tender and non distended. No rebound or guarding, and no masses palpated. Bowel Sounds normal. MUSCULOSKELETAL: Good range of motion of all major joints. Extremities without clubbing, cyanosis or edema. NEUROLOGIC EXAM: Alert and oriented x 2 No focal sensory or strength deficits. Some confusion persist Speech normal. Follows commands. PSYCHIATRIC: Mood normal. SKIN: No rash or lesions. - Constitutional Vitals: Temp Pulse Resp BP Pulse Ox 98.4 F 69 18 109/43 100 09/13/18 02:24 09/13/18 02:24 09/13/18 02:24 09/13/18 02:24 09/13/18 02:24 General appearance: Present: mild distress Results - Labs CBC & Chem 7: 09/14/18 05:45 09/14/18 09:56 Labs: Laboratory Last Values WBC 33.2 K/mm3 (4.5-11.0) H 09/13/18 03:21 RBC 2.99 M/mm3 (3.65-5.03) L 09/13/18 03:21 Hgb 7.6 gm/dl (10.1-14.3) L 09/13/18 03:21 Hct 24.3 % (30.3-42.9) L D 09/13/18 03:21 MCV 81 fl (79-97) 09/13/18 03:21 MCH 25 pg (28-32) L 09/13/18 03:21 MCHC 31 % (30-34) 09/13/18 03:21 RDW 19.4 % (13.2-15.2) H 09/13/18 03:21 Plt Count 132 K/mm3 (140-440) L 09/13/18 03:21 Lymph % (Auto) Crew Director 09/11/18 13:11 Lymph # Crew Director 09/11/18 13:11 Add Manual Diff Complete 09/11/18 13:11 Total Counted 200 09/11/18 13:11 Seg Neutrophils % Crew Director 09/11/18 13:11 Seg Neuts % (Manual) 7.0 % (40.0-70.0) L 09/11/18 13:11 0 % 09/11/18 13:11 91.5 % (13.4-35.0) H 09/11/18 13:11 Reactive Lymphs % (Man) 0 % 09/11/18 13:11 1.5 % (0.0-7.3) 09/11/18 13:11 0 % (0.0-4.3) 09/11/18 13:11 0 % (0.0-1.8) 09/11/18 13:11 0 % 09/11/18 13:11 0 % 09/11/18 13:11 0 % 09/11/18 13:11 0 % 09/11/18 13:11 Nucleated RBC % Not Reportable 09/11/18 13:11 Seg Neutrophils # Man 4.5 K/mm3 (1.8-7.7) 09/11/18 13:11 Band Neutrophils # 0.0 K/mm3 09/11/18 13:11 59.2 K/mm3 (1.2-5.4) H 09/11/18 13:11 Abs React Lymphs (Man) 0.0 K/mm3 09/11/18 13:11 1.0 K/mm3 (0.0-0.8) H 09/11/18 13:11 0.0 K/mm3 (0.0-0.4) 09/11/18 13:11 0.0 K/mm3 (0.0-0.1) 09/11/18 13:11 0.0 K/mm3 09/11/18 13:11 0.0 K/mm3 09/11/18 13:11 0.0 K/mm3 09/11/18 13:11 Blast Cells # 0.0 K/mm3 09/11/18 13:11 Hypersegmented Neuts Not Reportable 09/11/18 13:11 Hyposegmented Neuts Not Reportable 09/11/18 13:11 Hypogranular Neuts Not Reportable 09/11/18 13:11 Not Reportable 09/11/18 13:11 Not Reportable 09/11/18 13:11 Not Reportable 09/11/18 13:11 Not Reportable 09/11/18 13:11 Not Reportable 09/11/18 13:11 Not Reportable 09/11/18 13:11 Consistent w auto 09/11/18 13:11 Not Reportable 09/11/18 13:11 Plt Clumps, EDTA Not Reportable 09/11/18 13:11 Not Reportable 09/11/18 13:11 Not Reportable 09/11/18 13:11 Not Reportable 09/11/18 13:11 Plt Morphology Comment Not Reportable 09/11/18 13:11 RBC Morphology Not Reportable 09/11/18 13:11 Dimorphic RBCs Not Reportable 09/11/18 13:11 Rare 09/11/18 13:11 1+ 09/11/18 13:11 1+ 09/11/18 13:11 1+ 09/11/18 13:11 Not Reportable 09/11/18 13:11 1+ 09/11/18 13:11 Not Reportable 09/11/18 13:11 Not Reportable 09/11/18 13:11 Not Reportable 09/11/18 13:11 Not Reportable 09/11/18 13:11 Rare 09/11/18 13:11 Few 09/11/18 13:11 Not Reportable 09/11/18 13:11 Not Reportable 09/11/18 13:11 Not Reportable 09/11/18 13:11 Not Reportable 09/11/18 13:11 Not Reportable 09/11/18 13:11 Not Reportable 09/11/18 13:11 Not Reportable 09/11/18 13:11 Acanthocytes (Spur) Not Reportable 09/11/18 13:11 Rouleaux Not Reportable 09/11/18 13:11 Not Reportable 09/11/18 13:11 Not Reportable 09/11/18 13:11 Not Reportable 09/11/18 13:11 Not Reportable 09/11/18 13:11 Hem Pathologist Commnt Sent to pathology 09/11/18 13:11 PT 15.0 Sec. (12.2-14.9) H 09/11/18 17:16 INR 1.21 (0.87-1.13) H 09/11/18 17:16 APTT 24.9 Sec. (24.2-36.6) 09/11/18 17:16 Sodium 147 mmol/L (137-145) H 09/13/18 03:21 Potassium 3.3 mmol/L (3.6-5.0) L D 09/13/18 03:21 Chloride 107.4 mmol/L (98-107) H 09/13/18 03:21 Carbon Dioxide 25 mmol/L (22-30) 09/13/18 03:21 18 mmol/L 09/13/18 03:21 BUN 16 mg/dL (7-17) 09/13/18 03:21 0.8 mg/dL (0.7-1.2) 09/13/18 03:21 Estimated GFR > 60 ml/min 09/13/18 03:21 20 % 09/13/18 03:21 Glucose 83 mg/dL (65-100) 09/13/18 03:21 Calcium 9.0 mg/dL (8.4-10.2) 09/13/18 03:21 Magnesium 2.00 mg/dL (1.7-2.3) 09/11/18 13:11 0.60 mg/dL (0.1-1.2) 09/11/18 13:11 < 0.2 mg/dL (0-0.2) 09/11/18 13:11 0.4 mg/dL 09/11/18 13:11 AST 23 units/L (5-40) 09/11/18 13:11 ALT 14 units/L (7-56) 09/11/18 13:11 73 units/L (35-129) 09/11/18 13:11 51 units/L (30-135) 09/11/18 13:11 CK-MB (CK-2) 3.4 ng/mL (0.0-4.0) 09/11/18 13:11 CK-MB (CK-2) Rel Index 6.6 (0-4) H 09/11/18 13:11 0.020 ng/mL (0.00-0.029) 09/11/18 13:11 NT-Pro-B Natriuret Pep 672.7 pg/mL (0-900) 09/11/18 13:11 7.1 g/dL (6.3-8.2) 09/11/18 13:11 3.2 g/dL (3.9-5) L 09/11/18 13:11 0.8 % 09/11/18 13:11 42 units/L (13-60) 09/11/18 13:11 TSH 3.530 mlU/mL (0.270-4.200) 09/11/18 12:46 Free T4 1.32 ng/dL (0.76-1.46) 09/11/18 12:46 Josselyn (Yellow) 09/11/18 13:40 Clear (Clear) 09/11/18 13:40 5.0 (5.0-7.0) 09/11/18 13:40 Ur Specific Grandin 1.026 (1.003-1.030) 09/11/18 13:40 100 mg/dl mg/dL (Negative) 09/11/18 13:40 Neg mg/dL (Negative) 09/11/18 13:40 Tr mg/dL (Negative) 09/11/18 13:40 Neg (Negative) 09/11/18 13:40 Neg (Negative) 09/11/18 13:40 Sm (Negative) 09/11/18 13:40 Negative (Negative) 09/11/18 13:40 4.0 mg/dL (<2.0) 09/11/18 13:40 Ur Leukocyte Esterase Neg (Negative) 09/11/18 13:40 1.0 /HPF (0.0-6.0) 09/11/18 13:40 4.0 /HPF (0.0-6.0) 09/11/18 13:40 U Epithel Cells (Auto) 1.0 /HPF (0-13.0) 09/11/18 13:40 Hyaline Casts 1 /LPF 09/11/18 13:40 Few /HPF 09/11/18 13:40 Blood Type O POSITIVE 09/11/18 13:11 Antibody Screen Negative 09/11/18 13:11 Crossmatch See Detail 09/11/18 13:11 Active Medications - Current Medications Current Medications: Generic Name Dose Route Start Last Admin Trade Name Freq PRN Reason Stop Dose Admin Acetaminophen 650 mg 09/11/18 14:58 Tylenol PO Q4H PRN Pain MILD(1-3)/Fever >100.5/MARTELL Albuterol 2.5 mg 09/11/18 14:58 Proventil IH Q4HRT PRN Shortness Of Breath Sodium Chloride 500 mls @ 0 mls/hr 09/13/18 07:38 Nacl 0.9% 500 Ml IV 09/13/18 07:39 ONCE ONE As Directed Mineral Oil 133 ml 09/13/18 08:00 Fleet Mineral Oil NE QDAY PRN Constipation Ondansetron HCl 4 mg 09/11/18 14:58 Zofran IV Q8H PRN Nausea And Vomiting Potassium Chloride 40 meq 09/13/18 07:37 K-Dur PO 09/13/18 07:38 ONCE ONE Sodium Chloride 10 ml 09/11/18 22:00 09/12/18 22:05 Sodium Chloride Flush Syringe 10 Ml IV Not Given BID TISHA Sodium Chloride 10 ml 09/11/18 14:58 Sodium Chloride Flush Syringe 10 Ml IV PRN PRN LINE FLUSH Nutrition/Malnutrition Assess - Dietary Evaluation Nutrition/Malnutrition Findings: Nutrition Notes Start: 09/12/18 13:15 Freq: Status: Active Protocol: Document 09/12/18 13:15 ARTURO (Rec: 09/12/18 13:22 ARTURO [id number]) Nutrition Notes Need for Assessment generated from: MD Order,claim agent,MST Initial or Follow up Assessment Other Pertinent Diagnosis Encephalopathy, (R) rib fx, Debility, Dementia Current Diet Regular Labs/Tests Reviewed Pertinent Medications Reviewed Height 5 ft 3 in Weight 69.7 kg [place] Body Weight (kg) 52.27 BMI 27.2 Weight Status Overweight Subjective/Other Information RD consulted for poor oral intake. Pt also screened for malnutrition risk. Per records, pt with decreased appetite over past month. Observed pt feeding herself at lunch time today. She is pleasantly confused, but has a little trouble chewing the food. Burn Absent Trauma Absent Difficulty In Chewing #1 Nutrition Diagnosis Biting/Chewing (masticatory) difficulty Etiology missing teeth As Evidenced by Signs and Symptoms pt with no upper teeth and very few bottom teeth; had difficulty chewing foods at lunch today Is patient on ventilator? No Is Patient Ambulatory and/or Out of Bed No REE-([place]. Jeor-confined to bed) [phone] Calculation [facility]ations [facility] Additional Notes Pro needs 1-1.2g/k-84g/ day Fluid needs 1ml/kcal Nutrition Intervention Change Diet Order: Change diet order to [facility] soft with chopped meats Add Supplement/Snack (indicate name/kcal Ensure Enlive BID /protein ) Provides kCal: 700 Provides Protein (gm) 40 Goal #1 PO tolerance Goal #2 PO intake of meals plus ONS to meet at least 75% energy and pro needs Anticipated Discharge Needs: Continue Ensure 1-2 times daily Follow-Up By: 09/15/18 Additional Comments F/U: intakes (meals/ONS)
[2018-09-13] MEDS ORDERED: NACL 0.9% 500 ML 500 ML IV NR (08:00)
[2018-09-13] MEDS ORDERED: FLEET MINERAL OIL PR PRN (08:00)
[2018-09-13] MEDS: SODIUM CHLORIDE FLUSH SYRINGE 10 ML IV SCH ×2 (09:18→23:41)
[2018-09-13] MEDS: MARINOL PO SCH ×2 (09:18→23:41)
--- NOTE | 2018-09-13 10:29 | Event Note ---
Date: 09/12/18 [id number]
[2018-09-13 16:35] LABS: Hematocrit 28.1 % (30.3-42.9); Hemoglobin 8.7 gm/dl (10.1-14.3)
[2018-09-14 06:41] LABS: Hematocrit 23.8 % (30.3-42.9); Hemoglobin 7.5 gm/dl (10.1-14.3); Mean Corpuscular HGB Conc 31 % (30-34); Mean Corpuscular Volume 83 fl (79-97); Platelet Count 135 K/mm3 (140-440); Red Blood Count 2.88 M/mm3 (3.65-5.03); Red Cell Distribution Width 19.8 % (13.2-15.2)
[2018-09-14 06:51] LABS: BUN/Creatinine Ratio 20; Blood Urea Nitrogen 16 mg/dL (7-17); Calcium 9.4 mg/dL (8.4-10.2); Hemolysis Index 7
--- NOTE | 2018-09-14 07:41 | Hem/Onc Progress Note ---
Assessment and Plan 1. Leukocytosis, based on flow cytometry, chronic lymphocytic leukemia/small lymphocytic lymphoma. CD38 was low, favorable prognosis marker. 2. Radiology shows the axillary lymph nodes and splenomegaly. This probably makes her CLL into stage 1. 3. Dementia issues. 4. Being treated for encephalopathy/urinary tract infection. 5. Leukocytosis. We will follow the trend. 6. History of rib fractures. 7. For CLL, this is early stage. No intervention is needed. We will observe the patient. 8. Mild anemia. In the past, serum iron was normal. B12, folate was normal. 9. We will observe the patient for now. OP follow up an option - Patient Problems (1) CLL (chronic lymphocytic leukemia) Status: Acute Subjective Date of service: 09/14/18 Principal diagnosis: CLL Interval history: h/o dementia Objective - Exam Narrative Exam: Pain none General appearance no acute distress Performance status completely disabled ENT no bleeding LNs cervical not palpable Neck normal ROM Respiratory Normal Breath sounds - diminished b/l CVS S1 S2 + Extremities normal temperature General GI Soft non tender Rectal deferred Female - deferred Skin warm Musculoskeletal generalized weakness Neurologically dementia - Constitutional Vitals: Last Vital Signs Temp 98.8 F 09/14/18 02:22 Pulse 62 09/14/18 02:27 Resp 18 09/14/18 02:22 BP 124/71 09/14/18 02:22 Pulse Ox 91 09/14/18 02:22 - Labs Lab Results: Laboratory Results - last 24 hr 09/11/18 09/13/18 09/14/18 13:11 16:04 05:45 WBC 30.7 H RBC 2.88 L Hgb 8.7 L 7.5 L Hct 28.1 L 23.8 L MCV 83 MCH 26 L MCHC 31 RDW 19.8 H Plt Count 135 L Sodium Potassium Chloride Carbon Dioxide Anion Gap BUN Creatinine Estimated GFR BUN/Creatinine Ratio Glucose Calcium Blood Type O POSITIVE Antibody Screen Negative Crossmatch See Detail 09/14/18 05:45 WBC RBC Hgb Hct MCV MCH MCHC RDW Plt Count Sodium 149 H Potassium 2.6 L* D Chloride 109.5 H Carbon Dioxide 27 Anion Gap 15 BUN 16 Creatinine 0.8 Estimated GFR > 60 BUN/Creatinine Ratio 20 Glucose 95 Calcium 9.4 Blood Type Antibody Screen Crossmatch Medications & Allergies - Medications Allergies/Adverse Reactions: Allergies No Known Allergies Allergy (Unverified 07/29/18 12:26) Home Medications: Home Medications Medication Instructions Recorded Confirmed Last Taken Type Dronabinol [Marinol] 2.5 mg PO BID #30 capsule 09/14/18 Unknown Rx Active Medications: Generic Name Dose Route Start Last Admin Trade Name Jonq PRN Reason Stop Dose Admin Acetaminophen 650 mg 09/11/18 14:58 Tylenol PO Q4H PRN Pain MILD(1-3)/Fever >100.5/MARTELL Albuterol 2.5 mg 09/11/18 14:58 Proventil IH Q4HRT PRN Shortness Of Breath Dronabinol 2.5 mg 09/13/18 10:00 09/13/18 23:41 Marinol PO 2.5 mg BID TISHA Administration Mineral Oil 133 ml 09/13/18 08:00 Fleet Mineral Oil [place] QDAY PRN Constipation Ondansetron HCl 4 mg 09/11/18 14:58 Zofran IV Q8H PRN Nausea And Vomiting Sodium Chloride 10 ml 09/11/18 22:00 09/13/18 23:41 Sodium Chloride Flush Syringe 10 Ml IV 10 ml BID TISHA Administration Sodium Chloride 10 ml 09/11/18 14:58 Sodium Chloride Flush Syringe 10 Ml IV PRN PRN LINE FLUSH
--- NOTE | 2018-09-14 10:23 | Discharge Summary ---
Providers - Providers Date of Admission: 09/11/18 14:58 Attending physician: ARLIN PHELPS MD 09/11/18 15:15 Consult to Physician [CONS] Routine Comment: YASMINE Consulting Provider: JEVON GUERRERO Physician Instructions: CONSULT WAS CALLED TO /COREEN Reason For Exam: Luekemia 09/11/18 19:04 Physical Therapy Evaluation and Treat [CONS] Routine Comment: Reason For Exam: weakness 09/12/18 10:34 Consult to Dietitian/Nutrition [CONS] Routine Physician Instructions: Reason For Exam: Reason for Consult: Poor oral intake Primary care physician: DAMIAN WILEY Hospitalization Reason for admission: encephalopthy Condition: Stable Hospital course: 73 year old female who was brought to the emergency department by her son. Is somewhat obsessed with a need for his mother to have a stat bowel movement. He states that she has not had a bowel movement in more than 2 weeks. She was admitted to the hospital in July with the following hospital course. He states that about 2 weeks after that she went to a "hydrotherapy doctor" at [place]. Patient was given an enema and did have result. Since then he has used a variety of OTC medications to include MiraLAX and mag citrate. He reports no bowel movement. The patient is not vomiting. She is not complaining of abdominal pain. Apparently she was suspected of having chronic lymphocytic leukemia on her previous hospitalization. The patient has not followed up with a primary care physician or oncologist. Hospitalization 07/2018: Hospital course: 72 y.o female with Dementia presented to ED for evaluation. Pt is confused and unable to provide detailed history. Pt history is provided by her son who is at bedside during exam and interview. As per son, the patient has experienced confusion, and loss of appetite over the past 2 weeks with persistent symptoms over the same time frame. The patient was brought in for her son for confusion and loss of appetite x 2 weeks. urinary tract infection was suspected but ruled out by negative urine culture. She was found to be dehydrated, she had hypernatremia, she was treated with IV fluids, free water deficit was replaced. she also receive physical therapy for generalized weakness. She went on to have an MRI of her brain which essentially ruled out a stroke. -She was also noted to have lymphocyte predominant leukocytosis, which was associated with hyperbilirubinemia. This was suspicions for early CLL, she will follow up with oncology as an outpatient. she was also offered Home health services, but the patient and her son refused During this hospitalization, Patient was treated with Hypokalemia and also after speaking to the son, he made it appear that the patient just needs prescription from a doctor to eat well. She was started on Marinol A doctors note for eating was given and patient can be discharged with home health although the patients family declined. Discharge Diagnosis (1)Metabolic Encephalopathy (2) Acute leukemia (3) Right rib fracture (4) Debility (5) Poor Po intake (6)Constipation Disposition: DC-01 TO HOME OR SELFCARE Time spent for discharge: 35 mins Core Measure Documentation - Palliative Care Palliative Care/ Comfort Measures: Not Applicable - Core Measures Any of the following diagnoses?: none Exam - Physical Exam Narrative exam: VITAL SIGNS: Reviewed. GENERAL: The patient appeared well nourished and normally developed, otherwise elderly patient, Vital signs as documented. HEAD: No signs of head trauma. EYES: Pupils are equal. Extraocular motions intact. EARS: Hearing grossly intact. MOUTH: Oropharynx is normal. NECK: No adenopathy, no JVD. CHEST: Chest with clear breath sounds bilaterally. No wheezes, rales, or rhonchi. CARDIAC: Regular rate and rhythm. S1 and S2, without murmurs, gallops, or rubs. VASCULAR: No Edema. Peripheral pulses normal and equal in all extremities. ABDOMEN: Soft, non tender and non distended. No rebound or guarding, and no masses palpated. Bowel Sounds normal. MUSCULOSKELETAL: Good range of motion of all major joints. Extremities without clubbing, cyanosis or edema. NEUROLOGIC EXAM: Alert and oriented x 2 No focal sensory or strength deficits. Some confusion persist Speech normal. Follows commands. PSYCHIATRIC: Mood normal. SKIN: No rash or lesions. - Constitutional Vitals: Temp Pulse Resp BP Pulse Ox 99.2 F 63 20 89/41 98 09/14/18 07:57 09/14/18 07:57 09/14/18 07:57 09/14/18 07:59 09/14/18 07:57 Plan Activity: advance as tolerated, fall precautions Diet: low fat Special Instructions: record daily weights, record daily BP diary Follow up with: PRIMARY CARE, [Referring] - 3-5 Days Prescriptions: Dronabinol [Marinol] 2.5 mg PO BID #30 capsule
[2018-09-14] MEDS ORDERED: NACL 0.9% 1000 ML 1,000 ML IV ONE (11:30)
[2018-09-14] MEDS: SODIUM CHLORIDE FLUSH SYRINGE 10 ML IV SCH (11:52)
[2018-09-14] MEDS ORDERED: KCL 10MEQ/100ML 10 MEQ/100 ML BAG IV SCH (12:00)
[2018-09-14] MEDS: MARINOL PO SCH (12:38)
[2018-09-14] MEDS ORDERED: K-DUR PO ONE (12:42)
[2018-09-14 14:07] VITALS: BP 101/48
--- NOTE | 2018-09-15 02:19 | Consultation ---
REFERRED BY: Calvin García MD REASON FOR CONSULTATION: Leukocytosis/CLL. HISTORY OF PRESENT ILLNESS: I saw the patient, a 73-year-old female in the medical floor. The patient has a history of dementia and CLL. The patient was confused Most of the information came from the medical records. I had seen her in the past. As per the information, she has been confused and has loss of appetite over the last few weeks. As per the information, the patient only wants to eat fast foods and is not trying to eat healthy. No history of fever, chills, no chest pain, no palpitations, no falls. No bleeding. During this admission, the patient is being treated for UTI and encephalopathy. I have been asked to evaluate the patient because of leukocytosis. I had seen the patient in July admission to the hospital. Testing at that time had shown monoclonal B-cell population, CD38 negative. Differential included mantle cells. As her CD38 was low, CLL of favorable prognosis was suspected. In July, she also had CT scan of her abdomen, which showed spleen of 13 cm and anemia with low MCV. In the past, lab test had shown iron to be 49, B12 of 393, folate 9.0. REVIEW OF SYSTEMS: Not reliable because of dementia. PAST MEDICAL HISTORY: Includes some CLL. SURGICAL HISTORY: Not available. SOCIAL HISTORY: Single, lives with family members. FAMILY HISTORY: Not available. ALLERGIES: None. PHYSICAL EXAMINATION: VITAL SIGNS: Temperature 97.7, pulse 64, respirations 18, BP 96/43. HEENT: Mild pallor, no icterus. NECK: No neck lymph nodes. HEART: S1, S2. LUNGS: Clear to auscultation anteriorly. ABDOMEN: Soft. EXTREMITIES: No calf tenderness. NEUROLOGIC: Awake, follows simple commands, has dementia. LABORATORY DATA: White cells 64, hemoglobin 9.9, MCV 82, platelet 155, potassium 4.2, creatinine 1.2, calcium 8.9. RADIOLOGY: CT ____ shows bilateral axillary lymph nodes, spleen 12.5 cm. ASSESSMENT AND PLAN: 1. Leukocytosis, based on flow cytometry, chronic lymphocytic leukemia/small lymphocytic lymphoma. CD38 was low, favorable prognosis marker. 2. Radiology shows the axillary lymph nodes and splenomegaly. This probably makes her CLL into stage 1. 3. Dementia issues. 4. Being treated for encephalopathy/urinary tract infection. 5. Leukocytosis. We will follow the trend. 6. History of rib fractures. 7. For CLL, this is early stage. No intervention is needed. We will observe the patient. 8. Mild anemia. In the past, serum iron was normal. B12, folate was normal. 9. We will observe the patient for now. JOB# [id number] NM/NTS
== END 2018-09-14 14:55 | disposition home health service (06) | DRG 71 ==
LOC: ED 12:09 → 2B-ACE 14:58
PROVIDERS: ADMIT Internal Medicine; ATTEND Internal Medicine
PROC: 30233N1 Transfusion of Nonautologous Red Blood Cells into Peripheral Vein, Percutaneous Approach (ICD-10-PCS; principal; 2018-09-13)
DX: G93.41 Metabolic encephalopathy (principal); C85.90 Non-Hodgkin lymphoma, unspecified, unspecified site; N39.0 Urinary tract infection, site not specified; C91.10 Chronic lymphocytic leukemia of B-cell type not having achieved remission; M84.48XA Pathological fracture, other site, initial encounter for fracture; E44.1 Mild protein-calorie malnutrition; C95.01 Acute leukemia of unspecified cell type, in remission; E87.0 Hyperosmolality and hypernatremia; E87.6 Hypokalemia; F03.90 Unspecified dementia, unspecified severity, without behavioral disturbance, psychotic disturbance, mood disturbance, and anxiety; E86.9 Volume depletion, unspecified; I95.89 Other hypotension; K59.00 Constipation, unspecified; Z68.27 Body mass index [BMI] 27.0-27.9, adult
CPT/HCPCS: 36415; 70450; 71045; 71260; 74018; 74177; 80048; 80076; 81001; 82550; 82553; 83690; 83735; 83880; 84132; 84439; 84443; 84484; 85007; 85014; 85018; 85025; 85027; 85610; 85730; 86850; 86900; 86901; 86920; 93005; 93010; 96361; 96374; G0378; J3480; J7030; J7040; P9016; Q0167; Q9967

== ENCOUNTER 2018-09-28 16:21 | Inpatient (IN) | payer MEDICARE ==
--- NOTE | 2018-09-28 17:03 | Emergency Department Report ---
HPI - General Chief Complaint: Medical Clearance Time Seen by Provider: 09/28/18 16:45 - HPI HPI: 73-year-old -[place] female presents to the emergency department via EMS from home. The patient has a history of dementia and therefore is a poor hi storian. The patient was recently admitted here on 09/11/18 regarding some dehydration and evaluation of possible CLL. 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 I spoke with the patient's son, Mahad, whom the patient lives with. Mahad says that "they do not like the way that I am taking care of her." Patient was being visited by Adult Protective Services when they found her naked, rolling around on the ground, agitated, in what they considered to be unsafe living conditions. For this reason, the police were called and then EMS. The patient was transported here for further evaluation. The patient's only complaint is some left shoulder pain that sounds like may have been from about 1 week ago when the patient had an unconfirmed fall. ED Past Medical Hx - Past Medical History Previous Medical History?: Yes Hx Dementia: Yes Hx HIV: No - Social History Smoking Status: Never Smoker Substance Use Type: None - Medications Home Medications: Home Medications Medication Instructions Recorded Confirmed Last Taken Type Dronabinol [Marinol] 2.5 mg PO BID #30 capsule 09/14/18 Unknown Rx ED Review of Systems ROS: Stated complaint: AMS Other details as noted in HPI Comment: All other systems reviewed and negative Constitutional: denies: chills, fever Eyes: denies: eye pain, vision change ENT: denies: ear pain, throat pain Respiratory: denies: cough, shortness of breath Cardiovascular: denies: chest pain, palpitations Gastrointestinal: denies: abdominal pain, vomiting Genitourinary: denies: dysuria, discharge Musculoskeletal: arthralgia. denies: back pain Skin: denies: rash, lesions Neurological: denies: headache, weakness Physical Exam - Physical Exam Vital Signs: Vital Signs 09/28/18 16:36 Temperature 97.7 F Pulse Rate 91 H Respiratory 16 Rate Blood Pressure 107/39 Blood Pressure 107/39 [Left] O2 Sat by Pulse 99 Oximetry Physical Exam: GENERAL: The patient is well-developed well-nourished. HENT: Normocephalic. Atraumatic. Patient has moist mucous membranes. EYES: Extraocular motions are intact. Pupils equal reactive to light bilaterally. NECK: Supple. Trachea is midline. CHEST/LUNGS: Clear to auscultation. There is no respiratory distress noted. HEART/CARDIOVASCULAR: Regular. There is no tachycardia. There is no murmur. ABDOMEN: Abdomen is soft, nontender. Patient has normal bowel sounds. There is no abdominal distention. SKIN: Skin is warm and dry. NEURO: The patient is awake and cooperative but is confused. The patient has no focal neurologic deficits. The patient has normal speech. CN II - XII grossly intact. MUSCULOSKELETAL: Mild left shoulder tenderness to palpation. There is no limitation range of motion. left radial pulse +2/4 and capillary refill < 2 secs. ED Course Vital Signs 09/28/18 16:36 Temperature 97.7 F Pulse Rate 91 H Respiratory 16 Rate Blood Pressure 107/39 Blood Pressure 107/39 [Left] O2 Sat by Pulse 99 Oximetry ED Medical Decision Making - Lab Data Result diagrams: 09/28/18 17:03 09/28/18 17:03 - EKG Data -: EKG Interpreted by Me EKG shows normal: sinus rhythm, axis, intervals, QRS complexes, ST-T waves Rate: normal - EKG Data When compared to previous EKG there are: previous EKG unavailable Interpretation: normal EKG - Radiology Data Radiology results: report reviewed, image reviewed interpreted by me: Chest x-ray does not show any acute process. There are no pleural effusions, obvious pneumonia and there is no pneumothorax. LEFT SHOULDER 3 VIEW(S) INDICATION / CLINICAL INFORMATION: left shoulder pain COMPARISON: None available. FINDINGS: BONES / JOINT(S): There is a probable mildly displaced fracture involving the left distal clavicle. No other fracture or dislocation is seen within the left shoulder. No significant arthritis. SOFT TISSUES: No significant abnormality. ADDITIONAL FINDINGS: None. CT HEAD WITHOUT CONTRAST INDICATION / CLINICAL INFORMATION: fall, AMS. TECHNIQUE: All CT scans at this location are performed using CT dose reduction for ALARA by means of automated exposure control. COMPARISON: Head CT 09/12/2018 FINDINGS: HEMORRHAGE: No evidence of intracranial hemorrhage or extra-axial fluid collection. EXTRA-AXIAL SPACES: Cortical sulci and sylvian fissures are enlarged reflecting a degree of parenchymal volume loss which is within normal limits for the patient's age. Basilar cisterns have an unremarkable appearance. VENTRICULAR SYSTEM: The third and lateral ventricles are enlarged reflecting resonance of age related parenchymal volume loss. CEREBRAL PARENCHYMA: Periventricular and deep white matter lucency is observed. This is probably secondary to microvascular ischemic change. There is no indication of recent infarction. No areas of encephalomalacia are identified. MIDLINE SHIFT OR HERNIATION: There is no mass effect. CEREBELLUM / BRAINSTEM: Brainstem has an unremarkable appearance. Mild, age- appropriate cerebellar atrophy is noted. INTRACRANIAL VESSELS:Calcified atherosclerotic plaque is present along the course of the cavernous segments of both internal carotid arteries. ORBITS: The orbits are largely excluded from this examination. SOFT TISSUES of HEAD: No significant abnormality. CALVARIUM: Evaluation of bone windows reveals no abnormalities. PARANASAL SINUSES / MASTOID AIR CELLS: Paranasal sinuses are free from inflamm atory mucosal disease. Frontal sinuses did not develop in this individual. Mastoid air cells are normally pneumatized. IMPRESSION: 1. No acute intracranial abnormality. No interval change. CT CERVICAL SPINE WITHOUT CONTRAST INDICATION / CLINICAL INFORMATION: Trauma. Patient fell. Neck pain. TECHNIQUE: Axial CT images were obtained through the cervical spine. Sagittal and coronal reformatted images were produced. All CT scans at this location are performed using CT dose reduction for ALARA by means of automated exposure control. COMPARISON: None available. FINDINGS: OVERVIEW: No indication of fracture or traumatic subluxation. ALIGNMENT: No significant abnormality. VERTEBRAE: No significant abnormality. DISC SPACES: Loss of disc height is noted at the C4-5 and C6-7 levels. Disc height is fairly well maintained elsewhere. INDIVIDUAL LEVEL ANALYSIS: C2-3:No abnormality. C3-4:No abnormality. C4-5: Loss of disc height is noted. No additional abnormality. C5-6: Ligamentous calcification is noted posteriorly. This does not compromise the spinal canal. C6-7: Mild loss of disc height is noted. No additional abnormality. C7-T1:No abnormality. CRANIOCERVICAL JUNCTION:No significant abnormality. SPINAL CANAL: There is no indication of central canal stenosis. PARASPINAL SOFT TISSUES: Multiple normal sized lymph nodes are demonstrated throughout the neck bilaterally. There is no indication of pathological lymphadenopathy. Tortuosity of the left carotid artery results in a contour deformity along the posterior left lateral aspect of the larynx and oropharynx. ADDITIONAL FINDINGS: None. LUNG APICES: No significant abnormality of visualized lungs. IMPRESSION: 1. No indication of fracture or traumatic subluxation. 2. Mild degenerative changes at C4-5, C5-6 and C6-7 levels with no evidence of central canal stenosis or significant neuroforaminal narrowing. - Medical Decision Making This patient presented to the emergency department after Adult Protective Services found her rolling around on the floor naked and agitated. Patient does have some history of dementia with some occasional behavioral disturbances but APS did not feel that she could be cared for in this environment and it was unsa fe for her. The patient did complain of some left shoulder pain and allegedly having a fall within the last week. X-ray of the left shoulder shows a possible distal clavicular fracture. Chest x-ray did not show any pneumothorax, pneumonia, rib fractures, pleural effusions, or any other acute process. The patient has a history of CLL and appears to have a leukemoid reaction with greater than 40,000 white blood cells. For this reason, along with the fact the patient may need case management and placement, the patient will be admitted to the hospital for further evaluation and treatment. She was extended for admission by the hospitalist, Dr. Vilchis. - Differential Diagnosis CLL, dementia, rhabdo, electrolyte abnormalities, Sepsis Critical Care Time: No Critical care attestation.: If time is entered above; I have spent that time in minutes in the direct care of this critically ill patient, excluding procedure time. ED Disposition Clinical Impression: CLL (chronic lymphocytic leukemia), Leukemoid reaction Leukocytosis Qualifiers: Leukocytosis type: lymphocytosis Qualified Code(s): D72.820 - Lymphocytosis (symptomatic) Closed left clavicular fracture Qualifiers: Encounter type: initial encounter Clavicle location: lateral end Fracture alignment: displaced Qualified Code(s): S42.032A - Displaced fracture of lateral end of left clavicle, initial encounter for closed fracture Anemia Qualifiers: Anemia type: unspecified type Qualified Code(s): D64.9 - Anemia, unspecified Disposition: 09 OP ADMIT IP TO THIS HOSP Is pt being admited?: Yes Condition: Fair Time of Disposition: 00:57
[2018-09-28 17:37] LABS: Hemoglobin 9.3 gm/dl (10.1-14.3); Mean Corpuscular HGB Conc 31 % (30-34); Mean Corpuscular Volume 87 fl (79-97); Platelet Count 208 K/mm3 (140-440); Red Blood Count 3.44 M/mm3 (3.65-5.03)
[2018-09-28 17:48] LABS: Red Cell Distribution Width 22.3 % (13.2-15.2)
[2018-09-28 17:50] LABS: Alanine Aminotransferase 12 units/L (7-56); Albumin 3.8 g/dL (3.9-5); BUN/Creatinine Ratio 10; Blood Urea Nitrogen 8 mg/dL (7-17); Calcium 8.8 mg/dL (8.4-10.2); Hemolysis Index 20
[2018-09-28 18:23] LABS: Bilirubin,Urine NEG (Negative); Blood,Urine NEG (Negative); Color,Urine Amber (Yellow)
[2018-09-28 18:24] LABS: Mucus,Urine 1+ /HPF
--- NOTE | 2018-09-28 18:30 | XRay Report ---
. LEFT SHOULDER 3 VIEW(S) INDICATION / CLINICAL INFORMATION: left shoulder pain COMPARISON: None available. FINDINGS: BONES / JOINT(S): There is a probable mildly displaced fracture involving the left distal clavicle. N o other fracture or dislocation is seen within the left shoulder. No significant arthritis. SOFT TISSUES: No significant abnormality. ADDITIONAL FINDINGS: None. Signer Name: Brendan Pompa MD Signed: 09/28/2018 6:26 PM Workstation Name: [id number]
--- NOTE | 2018-09-28 18:31 | XRay Report ---
CHEST 1 VIEW 09/28/2018 5:52 PM INDICATION / CLINICAL INFORMATION: fall. COMPARISON: Chest x-ray 09/11/2018 FINDINGS: SUPPORT DEVICES: None. HEART / MEDIASTINUM: No significant abnormality. LUNGS / PLEURA: No significant pulmonary or pleural abnormality. No pneumothorax. ADDITIONAL FINDINGS: No significant additional findings. IMPRESSION: 1. No acute findings. Signer Name: Brendan Pompa MD Signed: 09/28/2018 6:27 PM Workstation Name: [id number]
[2018-09-28 18:32] LABS: Amphetamine Screen,Urine PRESUMPTIVE NEGATIVE; Benzodiazepines Screen,Urine PRESUMPTIVE NEGATIVE; Cannabinoid Screen,Urine PRESUMPTIVE NEGATIVE; Cocaine Screen,Urine PRESUMPTIVE NEGATIVE; Methadone Screen,Urine PRESUMPTIVE NEGATIVE; Opiate Screen,Urine PRESUMPTIVE NEGATIVE
[2018-09-28 19:00] LABS: Basophils % (Manual) 0 % (0.0-1.8); Eosinophils % (Manual) 0 % (0.0-4.3); Total Cells Counted 200
[2018-09-28 19:02] LABS: Anisocytosis 1+; Ovalocytes Few; Platelet Estimate Consistent w Auto; Poikilocytosis 1+
--- NOTE | 2018-09-28 19:42 | Cat Scan Report ---
CT CERVICAL SPINE WITHOUT CONTRAST INDICATION / CLINICAL INFORMATION: Trauma. Patient fell. Neck pain. TECHNIQUE: Axial CT images were obtained through the cervical spine. Sagittal and coronal reformatted images wer e produced. All CT scans at this location are performed using CT dose reduction for ALARA by means of automated exposure control. COMPARISON: None available. FINDINGS: OVERVIEW: No indication of fracture or traumatic subluxation. ALIGNMENT: No significant abnormality. VERTEBRAE: No significant abnormality. DISC SPACES: Loss of disc height is noted at the C4-5 and C6-7 levels. Disc height is fairly well noemi ntained elsewhere. INDIVIDUAL LEVEL ANALYSIS: C2-3:No abnormality. C3-4:No abnormality. C4-5: Loss of disc height is noted. No additional abnormality. C5-6: Ligamentous calcification is noted posteriorly. This does not compromise the spinal canal. C6-7: Mild loss of disc height is noted. No additional abnormality. C7-T1:No abnormality. CRANIOCERVICAL JUNCTION:No significant abnormality. SPINAL CANAL: There is no indication of central canal stenosis. PARASPINAL SOFT TISSUES: Multiple normal sized lymph nodes are demonstrated throughout the neck bilat erally. There is no indication of pathological lymphadenopathy. Tortuosity of the left carotid artery results in a contour deformity along the posterior left lateral aspect of the larynx and oropharynx. ADDITIONAL FINDINGS: None. LUNG APICES: No significant abnormality of visualized lungs. IMPRESSION: 1. No indication of fracture or traumatic subluxation. 2. Mild degenerative changes at C4-5, C5-6 and C6-7 levels with no evidence of central canal stenosis or significant neuroforaminal narrowing. Signer Name: Jose Swain MD Signed: 09/28/2018 7:38 PM Workstation Name: [id number]
--- NOTE | 2018-09-28 21:38 | Cat Scan Report ---
CT HEAD WITHOUT CONTRAST INDICATION / CLINICAL INFORMATION: fall, AMS. TECHNIQUE: All CT scans at this location are performed using CT dose reduction for ALARA by means of automated e xposure control. COMPARISON: Head CT 09/12/2018 FINDINGS: HEMORRHAGE: No evidence of intracranial hemorrhage or extra-axial fluid collection. EXTRA-AXIAL SPACES: Cortical sulci and sylvian fissures are enlarged reflecting a degree of parenchym al volume loss which is within normal limits for the patient's age. Basilar cisterns have an unremark able appearance. VENTRICULAR SYSTEM: The third and lateral ventricles are enlarged reflecting resonance of age related parenchymal volume loss. CEREBRAL PARENCHYMA: Periventricular and deep white matter lucency is observed. This is probably seco ndary to microvascular ischemic change. There is no indication of recent infarction. No areas of ence phalomalacia are identified. MIDLINE SHIFT OR HERNIATION: There is no mass effect. CEREBELLUM / BRAINSTEM: Brainstem has an unremarkable appearance. Mild, age-appropriate cerebellar at rophy is noted. INTRACRANIAL VESSELS:Calcified atherosclerotic plaque is present along the course of the cavernous se gments of both internal carotid arteries. ORBITS: The orbits are largely excluded from this examination. SOFT TISSUES of HEAD: No significant abnormality. CALVARIUM: Evaluation of bone windows reveals no abnormalities. PARANASAL SINUSES / MASTOID AIR CELLS: Paranasal sinuses are free from inflammatory mucosal disease. Frontal sinuses did not develop in this individual. Mastoid air cells are normally pneumatized. IMPRESSION: 1. No acute intracranial abnormality. No interval change. Signer Name: Jose Swain MD Signed: 09/28/2018 9:33 PM Workstation Name: [id number]
[2018-09-28] MEDS ORDERED: HALDOL ONE (22:38)
[2018-09-28] MEDS: HALDOL IM PRN (22:40)
[2018-09-28] MEDS ORDERED: ZOFRAN IV PRN (23:29)
[2018-09-28] MEDS ORDERED: SODIUM CHLORIDE FLUSH SYRINGE 10 ML IV PRN (23:29)
--- NOTE | 2018-09-28 23:59 | History and Physical Report ---
History of Present Illness Date of examination: 09/28/18 Date of admission: T+T Chief complaint: Pt found confused and naked History of present illness: 73-year-old -Citizen Of [place] female with PMH of early Stage CLL, Dementia presents to the emergency department via EMS from home. The patient has a history of dementia and in this case, no history whatsover was able to be obtained. Pt was speaking with clear evidence of disorganized thought content and thought process. The patient was recently admitted here on 09/11/18 - 09/14/18 during which she was managed for dehydration, Encephalopathy and evaluation of probable CLL. She had at that time 65,000 white blood cells and had an evaluation by oncology- DR chrissy Walsh, who postulated that pt likely had stage I CLL and that no further intervention was warranted then aside from observation. Allegedly, pt was found naked and rolling on the floor by Adult Protective Services and they spoke with the patient's son, Mahad, whom the patient lives with. Mahad told the ED physician that "they do not like the way that I am taking care of her." Patient was being visited by Adult Protective Services when they found her naked, rolling around on the ground, agitated, in what they considered to be unsafe living conditions. For this reason, the police were called and then EMS and the patient was transported here for further evaluation. The patient's only complaint is some left shoulder pain that sounds like may have been from about 1 week ago when the patient had an unconfirmed fall. OF note pt is not chaptered as per the ED physician. She denies pain to anywhere else Past History Past Medical History: other (CLL, Dementia, HTN) Social history: single, lives with family, full code Family history: hypertension Medications and Allergies Allergies Allergy/AdvReac Type Severity Reaction Status Date / Time No Known Allergies Allergy Unverified 07/29/18 12:26 Home Medications Medication Instructions Recorded Confirmed Last Taken Type Dronabinol [Marinol] 2.5 mg PO BID #30 capsule 09/14/18 Unknown Rx Active Meds: Active Medications Acetaminophen (Tylenol) 650 mg PO Q4H PRN PRN Reason: Pain MILD(1-3)/Fever >100.5/MARTELL Albuterol/Ipratropium (Duoneb *Not For Prn Use*) 1 ampul IH Q6HRT TISHA Docusate Sodium (Colace) 100 mg PO BID TISHA Enoxaparin Sodium (Lovenox) 40 mg SUB-Q QDAY TISHA Haloperidol Lactate (Haldol) 5 mg IM Q6H PRN PRN Reason: Agitation Sodium Chloride (Nacl 0.45% 1000 Ml) 1,000 mls @ 75 mls/hr IV DIRECT TISHA Ondansetron HCl (Zofran) 4 mg IV Q8H PRN PRN Reason: Nausea And Vomiting Sodium Chloride (Sodium Chloride Flush Syringe 10 Ml) 10 ml IV BID TISHA Sodium Chloride (Sodium Chloride Flush Syringe 10 Ml) 10 ml IV PRN PRN PRN Reason: LINE FLUSH Review of Systems ROS unobtainable: due to mental status Exam - Constitutional Vitals: Temp Pulse Resp BP Pulse Ox 98.2 F 93 H 18 132/67 100 09/28/18 19:33 09/28/18 19:33 09/28/18 19:33 09/28/18 19:33 09/28/18 19:33 General appearance: Present: no acute distress, well-nourished, disheveled, other (asleep at first then she later became agitated and restless. not reorientable) - EENT Eyes: Present: PERRL ENT: hearing intact, clear oral mucosa - Neck Neck: Present: supple, normal ROM - Respiratory Respiratory effort: normal Respiratory: bilateral: CTA - Cardiovascular Heart Sounds: Present: S1 & S2. Absent: rub, click - Extremities Extremities: pulses symmetrical, No edema Peripheral Pulses: within normal limits - Abdominal General gastrointestinal: Present: soft, non-tender, non-distended, normal bowel sounds Female genitourinary: Present: normal - Integumentary Integumentary: Present: clear, warm, dry - Musculoskeletal Musculoskeletal: gait normal, strength equal bilaterally - Psychiatric Psychiatric: appropriate mood/affect, intact judgment & insight - Neurologic Neurologic: CNII-XII intact, moves all extremities Results - Labs CBC & Chem 7: 09/28/18 17:03 09/28/18 17:03 Labs: Laboratory Last Values WBC 40.7 K/mm3 (4.5-11.0) H* 09/28/18 17:03 RBC 3.44 M/mm3 (3.65-5.03) L 09/28/18 17:03 Hgb 9.3 gm/dl (10.1-14.3) L 09/28/18 17:03 Hct 30.0 % (30.3-42.9) L 09/28/18 17:03 MCV 87 fl (79-97) 09/28/18 17:03 MCH 27 pg (28-32) L 09/28/18 17:03 MCHC 31 % (30-34) 09/28/18 17:03 RDW 22.3 % (13.2-15.2) H 09/28/18 17:03 Plt Count 208 K/mm3 (140-440) 09/28/18 17:03 Lymph % (Auto) Nurse Private Duty 09/28/18 17:03 Lymph # Nurse Private Duty 09/28/18 17:03 Add Manual Diff Complete 09/28/18 17:03 Total Counted 200 09/28/18 17:03 Seg Neutrophils % Nurse Private Duty 09/28/18 17:03 Seg Neuts % (Manual) 14.0 % (40.0-70.0) L 09/28/18 17:03 0 % 09/28/18 17:03 84.0 % (13.4-35.0) H 09/28/18 17:03 Reactive Lymphs % (Man) 0 % 09/28/18 17:03 2.0 % (0.0-7.3) 09/28/18 17:03 0 % (0.0-4.3) 09/28/18 17:03 0 % (0.0-1.8) 09/28/18 17:03 0 % 09/28/18 17:03 0 % 09/28/18 17:03 0 % 09/28/18 17:03 0 % 09/28/18 17:03 Nucleated RBC % Not Reportable 09/28/18 17:03 Seg Neutrophils # Man 5.7 K/mm3 (1.8-7.7) 09/28/18 17:03 Band Neutrophils # 0.0 K/mm3 09/28/18 17:03 34.2 K/mm3 (1.2-5.4) H 09/28/18 17:03 Abs React Lymphs (Man) 0.0 K/mm3 09/28/18 17:03 0.8 K/mm3 (0.0-0.8) 09/28/18 17:03 0.0 K/mm3 (0.0-0.4) 09/28/18 17:03 0.0 K/mm3 (0.0-0.1) 09/28/18 17:03 0.0 K/mm3 09/28/18 17:03 0.0 K/mm3 09/28/18 17:03 0.0 K/mm3 09/28/18 17:03 Blast Cells # 0.0 K/mm3 09/28/18 17:03 WBC Morphology Not Reportable 09/28/18 17:03 Hypersegmented Neuts Not Reportable 09/28/18 17:03 Hyposegmented Neuts Not Reportable 09/28/18 17:03 Hypogranular Neuts Not Reportable 09/28/18 17:03 Not Reportable 09/28/18 17:03 Not Reportable 09/28/18 17:03 Not Reportable 09/28/18 17:03 Not Reportable 09/28/18 17:03 Not Reportable 09/28/18 17:03 Not Reportable 09/28/18 17:03 Consistent w auto 09/28/18 17:03 Not Reportable 09/28/18 17:03 Plt Clumps, EDTA Not Reportable 09/28/18 17:03 Not Reportable 09/28/18 17:03 Not Reportable 09/28/18 17:03 Not Reportable 09/28/18 17:03 Plt Morphology Comment Not Reportable 09/28/18 17:03 RBC Morphology Not Reportable 09/28/18 17:03 Dimorphic RBCs Not Reportable 09/28/18 17:03 Not Reportable 09/28/18 17:03 Not Reportable 09/28/18 17:03 1+ 09/28/18 17:03 1+ 09/28/18 17:03 Not Reportable 09/28/18 17:03 Not Reportable 09/28/18 17:03 Not Reportable 09/28/18 17:03 Not Reportable 09/28/18 17:03 Not Reportable 09/28/18 17:03 Not Reportable 09/28/18 17:03 Not Reportable 09/28/18 17:03 Few 09/28/18 17:03 Not Reportable 09/28/18 17:03 Not Reportable 09/28/18 17:03 Not Reportable 09/28/18 17:03 Not Reportable 09/28/18 17:03 Not Reportable 09/28/18 17:03 Not Reportable 09/28/18 17:03 Few 09/28/18 17:03 Acanthocytes (Spur) Not Reportable 09/28/18 17:03 Rouleaux Not Reportable 09/28/18 17:03 Not Reportable 09/28/18 17:03 Not Reportable 09/28/18 17:03 Not Reportable 09/28/18 17:03 Not Reportable 09/28/18 17:03 Hem Pathologist Commnt No 09/28/18 17:03 Sodium 140 mmol/L (137-145) 09/28/18 17:03 Potassium 4.0 mmol/L (3.6-5.0) 09/28/18 17:03 Chloride 105.1 mmol/L (98-107) 09/28/18 17:03 Carbon Dioxide 21 mmol/L (22-30) L 09/28/18 17:03 18 mmol/L 09/28/18 17:03 BUN 8 mg/dL (7-17) 09/28/18 17:03 0.8 mg/dL (0.7-1.2) 09/28/18 17:03 Estimated GFR > 60 ml/min 09/28/18 17:03 10 % 09/28/18 17:03 Glucose 102 mg/dL (65-100) H 09/28/18 17:03 Calcium 8.8 mg/dL (8.4-10.2) 09/28/18 17:03 1.80 mg/dL (0.1-1.2) H 09/28/18 17:03 AST 18 units/L (5-40) 09/28/18 17:03 ALT 12 units/L (7-56) 09/28/18 17:03 73 units/L (35-129) 09/28/18 17:03 67 units/L (30-135) 09/28/18 17:03 < 0.010 ng/mL (0.00-0.029) 09/28/18 17:03 6.1 g/dL (6.3-8.2) L 09/28/18 17:03 3.8 g/dL (3.9-5) L 09/28/18 17:03 1.7 % 09/28/18 17:03 TSH 1.950 mlU/mL (0.270-4.200) 09/28/18 17:03 Josselyn (Yellow) 09/28/18 18:01 Cloudy (Clear) 09/28/18 18:01 6.0 (5.0-7.0) 09/28/18 18:01 Ur Specific [place] 1.016 (1.003-1.030) 09/28/18 18:01 30 mg/dl mg/dL (Negative) 09/28/18 18:01 Neg mg/dL (Negative) 09/28/18 18:01 Tr mg/dL (Negative) 09/28/18 18:01 Neg (Negative) 09/28/18 18:01 Neg (Negative) 09/28/18 18:01 Neg (Negative) 09/28/18 18:01 2.0 mg/dL (<2.0) 09/28/18 18:01 Ur Leukocyte Esterase Tr (Negative) 09/28/18 18:01 1.0 /HPF (0.0-6.0) 09/28/18 18:01 2.0 /HPF (0.0-6.0) 09/28/18 18:01 1+ /HPF 09/28/18 18:01 Presumptive negative 09/28/18 Unknown Presumptive negative 09/28/18 Unknown Ur Barbiturates Screen Presumptive negative 09/28/18 Unknown Ur Phencyclidine Scrn Presumptive negative 09/28/18 Unknown Ur Amphetamines Screen Presumptive negative 09/28/18 Unknown U Benzodiazepines Scrn Presumptive negative 09/28/18 Unknown Presumptive negative 09/28/18 Unknown U Marijuana (THC) Screen Presumptive negative 09/28/18 Unknown Disclamer 09/28/18 Unknown Plasma/Serum Alcohol < 0.01 % (0-0.07) 09/28/18 17:03 Assessment and Plan Assessment and plan: 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 of note, MRI brain done last month, 08/2018 was negative for CVA - fall precautions - urine drug screen for prudence and that was negative, so was her UA - no infection focus found thus far -Haldol IM PRN - consider Psych evaluation. She likely will need placement, as APS is already involved. 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 consider consult while in house if indicated. No indication at this point Dehydration - mild to moderate - with metabolic acidosis - gentle IVF Anemia - stable - monitor Falls - multiple - due to dementia and/or debility - PT/Ot as she allows
[2018-09-29] MEDS: SODIUM CHLORIDE FLUSH SYRINGE 10 ML IV SCH ×2 (02:10→09:24)
[2018-09-29] MEDS: TYLENOL PO PRN ×2 (02:10→23:52)
[2018-09-29] MEDS: NACL 0.45% 1000 ML 1,000 ML IV SCH ×2 (02:10→15:04)
[2018-09-29] MEDS: DUONEB *Not for PRN Use IH SCH ×4 (04:50→19:05)
[2018-09-29 05:21] LABS: Hematocrit 25.7 % (30.3-42.9); Hemoglobin 8.2 gm/dl (10.1-14.3); Mean Corpuscular HGB Conc 32 % (30-34); Mean Corpuscular Volume 86 fl (79-97); Platelet Count 183 K/mm3 (140-440)
[2018-09-29 05:27] LABS: Red Cell Distribution Width 21.7 % (13.2-15.2)
[2018-09-29 05:42] LABS: BUN/Creatinine Ratio 11; Blood Urea Nitrogen 8 mg/dL (7-17); Calcium 8.4 mg/dL (8.4-10.2); Hemolysis Index 14
[2018-09-29 06:23] LABS: Basophils % (Manual) 0.5 % (0.0-1.8); Eosinophils % (Manual) 0.5 % (0.0-4.3); Total Cells Counted 200
[2018-09-29 06:24] LABS: Platelet Estimate Consistent w Auto; Tear Drop Cells 1+
[2018-09-29 06:25] LABS: Anisocytosis 1+
[2018-09-29] MEDS: LOVENOX SUB-Q SCH (09:24)
[2018-09-29] MEDS: COLACE PO SCH ×2 (09:24→23:52)
[2018-09-29] MEDS ORDERED: PNEUMOVAX 23 IM ONE (12:00)
--- NOTE | 2018-09-29 15:41 | Progress Note ---
Assessment and Plan Assessment and plan: Patient is a 73-year-old -[place] woman with a history of CLL and Dementia who presented [facility] with AMS/confusion. The patient was recently admitted and discharge from here on 09/11/18 - 09/14/18 during which she was managed for dehydration, Encephalopathy and evaluation of probable CLL. During that time 65,000 white blood cells and was evaluated by oncology Dr. 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 Allegedly, pt was found naked and rolling on the floor by Adult Protective Services and they spoke with the patient's son, Mahad, whom the patient lives with. Mahad told the ED physician that "they do not like the way that I am taking care of her." Patient was being visited by Adult Protective Services when they found her naked, rolling around on the ground, agitated, in what they considered to be unsafe living conditions. For this reason, the police were called and then EMS and the patient was transported here for further evaluation. The patient's only complaint is some left shoulder pain that sounds like may have been from about 1 week ago when the patient had an unconfirmed fall. Acute metabolic encephalopathy -treat the dehydration with IVF 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 of note, MRI brain done last month, 08/2018 was negative for CVA - fall precautions - urine drug screen for prudence and that was negative, so was her UA - no infection focus found thus far -Haldol IM PRN - consider Psych evaluation. She likely will need placement, as APS is already involved. 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 consider consult while in house if indicated. No indication at this point Dehydration - mild to moderate - with metabolic acidosis - gentle IVF Anemia, chronic - stable - monitor Falls - multiple - due to dementia and/or debility - PT/Ot as she allows consult Case management for possible placement History Interval history: Patient was seen and examined. Follow-up on current diagnosis of AMS. No overnight events reported to me. Patient denies any chest pain, shortness breath, nausea/vomiting or severe headaches. Imaging, nursing note, chart, labs and old chart reviewed. Discussed with patient. Gen: thin frail, chronically ill appearing, NAD, Awake, Alert, Orientated x 1 HEENT: NCAT, EOMI, PERRL, OP Clear Neck: supple, no adenopathy, no thyromegaly, no JVD CVS/Heart: RRR, normal S1S2, pulses present bilaterally Chest/Lungs: CTA B, Symmetrical chest expansion, good air entry bilaterally GI/Abdomen: soft, NTND, good bowel sounds, no guarding or rebound /Bladder: no suprapubic tenderness, no CVA or paraspinal tenderness Extermity/Skin: no c/c/e, no obvious rash MSK: FROM x 4 Neuro: CN 2-12 grossly intact, no new focal deficits Psych: calm Hospitalist Physical - Constitutional Vitals: Temp Pulse Resp BP Pulse Ox 98.7 F 87 16 129/64 96 09/29/18 07:18 09/29/18 14:06 09/29/18 14:06 09/29/18 07:18 09/29/18 07:18 General appearance: Present: no acute distress, well-nourished, disheveled, other (asleep at first then she later became agitated and restless. not reorient able) Results - Labs CBC & Chem 7: 09/29/18 04:27 09/29/18 04:27 Labs: Laboratory Last Values WBC 29.9 K/mm3 (4.5-11.0) H 09/29/18 04:27 RBC 3.00 M/mm3 (3.65-5.03) L 09/29/18 04:27 Hgb 8.2 gm/dl (10.1-14.3) L 09/29/18 04:27 Hct 25.7 % (30.3-42.9) L 09/29/18 04:27 MCV 86 fl (79-97) 09/29/18 04:27 MCH 27 pg (28-32) L 09/29/18 04:27 MCHC 32 % (30-34) 09/29/18 04:27 RDW 21.7 % (13.2-15.2) H 09/29/18 04:27 Plt Count 183 K/mm3 (140-440) 09/29/18 04:27 Lymph % (Auto) Proposal Lead Writer 09/29/18 04:27 [place] % (Auto) Proposal Lead Writer 09/29/18 04:27 Eos % (Auto) Proposal Lead Writer 09/29/18 04:27 Lymph # Proposal Lead Writer 09/29/18 04:27 Add Manual Diff Complete 09/29/18 04:27 Total Counted 200 09/29/18 04:27 Seg Neutrophils % Proposal Lead Writer 09/29/18 04:27 Seg Neuts % (Manual) 27.5 % (40.0-70.0) L 09/29/18 04:27 0 % 09/29/18 04:27 69.5 % (13.4-35.0) H 09/29/18 04:27 Reactive Lymphs % (Man) 0 % 09/29/18 04:27 2.0 % (0.0-7.3) 09/29/18 04:27 0.5 % (0.0-4.3) 09/29/18 04:27 0.5 % (0.0-1.8) 09/29/18 04:27 0 % 09/29/18 04:27 0 % 09/29/18 04:27 0 % 09/29/18 04:27 0 % 09/29/18 04:27 Nucleated RBC % Not Reportable 09/29/18 04:27 Seg Neutrophils # Man 8.2 K/mm3 (1.8-7.7) H 09/29/18 04:27 Band Neutrophils # 0.0 K/mm3 09/29/18 04:27 20.8 K/mm3 (1.2-5.4) H 09/29/18 04:27 Abs React Lymphs (Man) 0.0 K/mm3 09/29/18 04:27 0.6 K/mm3 (0.0-0.8) 09/29/18 04:27 0.1 K/mm3 (0.0-0.4) 09/29/18 04:27 0.1 K/mm3 (0.0-0.1) 09/29/18 04:27 0.0 K/mm3 09/29/18 04:27 0.0 K/mm3 09/29/18 04:27 0.0 K/mm3 09/29/18 04:27 Blast Cells # 0.0 K/mm3 09/29/18 04:27 WBC Morphology Not Reportable 09/29/18 04:27 WBC Morphology TNR 09/29/18 04:27 Hypersegmented Neuts Not Reportable 09/29/18 04:27 Hyposegmented Neuts Not Reportable 09/29/18 04:27 Hypogranular Neuts Not Reportable 09/29/18 04:27 Not Reportable 09/29/18 04:27 Not Reportable 09/29/18 04:27 Not Reportable 09/29/18 04:27 Not Reportable 09/29/18 04:27 Not Reportable 09/29/18 04:27 Not Reportable 09/29/18 04:27 Consistent w auto 09/29/18 04:27 Not Reportable 09/29/18 04:27 Plt Clumps, EDTA Not Reportable 09/29/18 04:27 Not Reportable 09/29/18 04:27 Not Reportable 09/29/18 04:27 Not Reportable 09/29/18 04:27 Plt Morphology Comment Not Reportable 09/29/18 04:27 RBC Morphology Not Reportable 09/29/18 04:27 Dimorphic RBCs Not Reportable 09/29/18 04:27 1+ 09/29/18 04:27 Not Reportable 09/29/18 04:27 Not Reportable 09/29/18 04:27 1+ 09/29/18 04:27 Not Reportable 09/29/18 04:27 Not Reportable 09/29/18 04:27 Not Reportable 09/29/18 04:27 Not Reportable 09/29/18 04:27 Not Reportable 09/29/18 04:27 Not Reportable 09/29/18 04:27 1+ 09/29/18 04:27 Not Reportable 09/29/18 04:27 Not Reportable 09/29/18 04:27 Not Reportable 09/29/18 04:27 Not Reportable 09/29/18 04:27 Not Reportable 09/29/18 04:27 Not Reportable 09/29/18 04:27 Not Reportable 09/29/18 04:27 Not Reportable 09/29/18 04:27 Acanthocytes (Spur) Not Reportable 09/29/18 04:27 Rouleaux Not Reportable 09/29/18 04:27 Not Reportable 09/29/18 04:27 Not Reportable 09/29/18 04:27 Not Reportable 09/29/18 04:27 Not Reportable 09/29/18 04:27 Hem Pathologist Commnt No 09/29/18 04:27 Sodium 143 mmol/L (137-145) 09/29/18 04:27 Potassium 4.0 mmol/L (3.6-5.0) 09/29/18 04:27 Chloride 108.0 mmol/L (98-107) H 09/29/18 04:27 Carbon Dioxide 22 mmol/L (22-30) 09/29/18 04:27 17 mmol/L 09/29/18 04:27 BUN 8 mg/dL (7-17) 09/29/18 04:27 0.7 mg/dL (0.7-1.2) 09/29/18 04:27 Estimated GFR > 60 ml/min 09/29/18 04:27 11 % 09/29/18 04:27 Glucose 93 mg/dL (65-100) 09/29/18 04:27 POC Glucose 103 (70-105) 09/29/18 12:06 Calcium 8.4 mg/dL (8.4-10.2) 09/29/18 04:27 1.80 mg/dL (0.1-1.2) H 09/28/18 17:03 AST 18 units/L (5-40) 09/28/18 17:03 ALT 12 units/L (7-56) 09/28/18 17:03 73 units/L (35-129) 09/28/18 17:03 67 units/L (30-135) 09/28/18 17:03 < 0.010 ng/mL (0.00-0.029) 09/28/18 17:03 6.1 g/dL (6.3-8.2) L 09/28/18 17:03 3.8 g/dL (3.9-5) L 09/28/18 17:03 1.7 % 09/28/18 17:03 TSH 1.950 mlU/mL (0.270-4.200) 09/28/18 17:03 Josselyn (Yellow) 09/28/18 18:01 Cloudy (Clear) 09/28/18 18:01 6.0 (5.0-7.0) 09/28/18 18:01 Ur Specific [place] 1.016 (1.003-1.030) 09/28/18 18:01 30 mg/dl mg/dL (Negative) 09/28/18 18:01 Neg mg/dL (Negative) 09/28/18 18:01 Tr mg/dL (Negative) 09/28/18 18:01 Neg (Negative) 09/28/18 18:01 Neg (Negative) 09/28/18 18:01 Neg (Negative) 09/28/18 18:01 2.0 mg/dL (<2.0) 09/28/18 18:01 Ur Leukocyte Esterase Tr (Negative) 09/28/18 18:01 1.0 /HPF (0.0-6.0) 09/28/18 18:01 2.0 /HPF (0.0-6.0) 09/28/18 18:01 1+ /HPF 09/28/18 18:01 Presumptive negative 09/28/18 Unknown Presumptive negative 09/28/18 Unknown Ur Barbiturates Screen Presumptive negative 09/28/18 Unknown Ur Phencyclidine Scrn Presumptive negative 09/28/18 Unknown Ur Amphetamines Screen Presumptive negative 09/28/18 Unknown U Benzodiazepines Scrn Presumptive negative 09/28/18 Unknown Presumptive negative 09/28/18 Unknown U Marijuana (THC) Screen Presumptive negative 09/28/18 Unknown Disclamer 09/28/18 Unknown Plasma/Serum Alcohol < 0.01 % (0-0.07) 09/28/18 17:03 Active Medications - Current Medications Current Medications: Generic Name Dose Route Start Last Admin Trade Name Freq PRN Reason Stop Dose Admin Acetaminophen 650 mg 09/28/18 23:29 09/29/18 02:10 Tylenol PO 650 mg Q4H PRN Administration Pain MILD(1-3)/Fever >100.5/MARTELL Albuterol/Ipratropium 1 ampul 09/29/18 02:00 09/29/18 13:56 Duoneb *Not For Prn Use* IH 1 ampul Q6HRT TISHA Administration Docusate Sodium 100 mg 09/29/18 10:00 09/29/18 09:24 Colace PO 100 mg BID TISHA Administration Enoxaparin Sodium 40 mg 09/29/18 10:00 09/29/18 09:24 Lovenox SUB-Q 40 mg QDAY TISHA Administration Haloperidol Lactate 5 mg 09/28/18 23:40 09/28/18 22:40 Haldol IM 5 mg Q6H PRN Administration Agitation Sodium Chloride 1,000 mls @ 75 mls/hr 09/28/18 23:45 09/29/18 15:04 Nacl 0.45% 1000 Ml IV 75 mls/hr DIRECT TISHA Administration Ondansetron HCl 4 mg 09/28/18 23:29 Zofran IV Q8H PRN Nausea And Vomiting Sodium Chloride 10 ml 09/28/18 23:45 09/29/18 09:24 Sodium Chloride Flush Syringe 10 Ml IV 10 ml BID TISHA Administration Sodium Chloride 10 ml 09/28/18 23:29 Sodium Chloride Flush Syringe 10 Ml IV PRN PRN LINE FLUSH
[2018-09-29] MEDS: HALDOL IM PRN ×2 (18:06→23:53)
[2018-09-30] MEDS: SODIUM CHLORIDE FLUSH SYRINGE 10 ML IV SCH ×3 (03:07→22:32)
[2018-09-30] MEDS: NACL 0.45% 1000 ML 1,000 ML IV SCH ×2 (05:01→19:16)
[2018-09-30 05:38] LABS: Hematocrit 23.7 % (30.3-42.9); Hemoglobin 7.4 gm/dl (10.1-14.3); Mean Corpuscular HGB Conc 31 % (30-34); Mean Corpuscular Volume 87 fl (79-97); Platelet Count 159 K/mm3 (140-440); Red Blood Count 2.73 M/mm3 (3.65-5.03)
[2018-09-30 05:39] LABS: Red Cell Distribution Width 21.9 % (13.2-15.2)
[2018-09-30 05:52] LABS: BUN/Creatinine Ratio 9; Blood Urea Nitrogen 6 mg/dL (7-17); Calcium 8.2 mg/dL (8.4-10.2); Hemolysis Index 11
[2018-09-30] MEDS: LOVENOX SUB-Q SCH (09:01)
[2018-09-30] MEDS: COLACE PO SCH ×2 (09:02→22:08)
--- NOTE | 2018-09-30 12:28 | Progress Note ---
Assessment and Plan Assessment and plan: Patient is a 73-year-old -[place] woman with a history of CLL and Dementia who presented to [facility] ED with AMS/confusion. The patient was recently admitted and discharge from here on 09/11/18 - 09/14/18 during which she was managed for dehydration, Encephalopathy and evaluation of probable CLL. During that time 65,000 white blood cells and was evaluated by oncology Dr. 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 Allegedly, pt was found naked and rolling on the floor by Adult Protective Services and they spoke with the patient's son, Mahad, whom the patient lives with. Mahad told the ED physician that "they do not like the way that I am taking care of her." Patient was being visited by Adult Protective Services when they found her naked, rolling around on the ground, agitated, in what they considered to be unsafe living conditions. For this reason, the police were called and then EMS and the patient was transported here for further evaluation. The patient's only complaint is some left shoulder pain that sounds like may have been from about 1 week ago when the patient had an unconfirmed fall. Acute metabolic encephalopathy -treat the dehydration with IVF 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 of note, MRI brain done last month, 08/2018 was negative for CVA - fall precautions - urine drug screen for prudence and that was negative, so was her UA - no infection focus found thus far -Haldol IM PRN - consider Psych evaluation. She likely will need placement, as APS is already involved. 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 consider consult while in house if indicated. No indication at this point Dehydration - mild to moderate - with metabolic acidosis - gentle IVF Anemia, chronic - stable - monitor Falls - multiple - due to dementia and/or debility - PT/Ot as she allows d/w son Mahad at bedside yesterday, he does not want placement History Interval history: Patient was seen and examined. Follow-up on current diagnosis of AMS. No overnight events reported to me. Patient denies any chest pain, shortness tuyet ath, nausea/vomiting or severe headaches. Imaging, nursing note, chart, labs and old chart reviewed. Discussed with patient. Hospitalist Physical - Physical exam Narrative exam: Gen: thin frail, chronically ill appearing, NAD, Awake, Alert, Orientated x 1 HEENT: NCAT, EOMI, PERRL, OP Clear Neck: supple, no adenopathy, no thyromegaly, no JVD CVS/Heart: RRR, normal S1S2, pulses present bilaterally Chest/Lungs: CTA B, Symmetrical chest expansion, good air entry bilaterally GI/Abdomen: soft, NTND, good bowel sounds, no guarding or rebound /Bladder: no suprapubic tenderness, no CVA or paraspinal tenderness Extermity/Skin: no c/c/e, no obvious rash MSK: FROM x 4 Neuro: CN 2-12 grossly intact, no new focal deficits Psych: calm - Constitutional Vitals: Temp Pulse Resp BP Pulse Ox 98.3 F 90 18 120/50 100 09/30/18 07:39 09/30/18 07:39 09/30/18 07:39 09/30/18 07:39 09/30/18 07:39 General appearance: Present: no acute distress, well-nourished, disheveled, other (asleep at first then she later became agitated and restless. not reorientable) Results - Labs CBC & Chem 7: 09/30/18 04:25 09/30/18 04:25 Labs: Laboratory Last Values WBC 26.3 K/mm3 (4.5-11.0) H 09/30/18 04:25 RBC 2.73 M/mm3 (3.65-5.03) L 09/30/18 04:25 Hgb 7.4 gm/dl (10.1-14.3) L 09/30/18 04:25 Hct 23.7 % (30.3-42.9) L 09/30/18 04:25 MCV 87 fl (79-97) 09/30/18 04:25 MCH 27 pg (28-32) L 09/30/18 04:25 MCHC 31 % (30-34) 09/30/18 04:25 RDW 21.9 % (13.2-15.2) H 09/30/18 04:25 Plt Count 159 K/mm3 (140-440) 09/30/18 04:25 Lymph % (Auto) Crib Clerk 09/29/18 04:27 [place] % (Auto) Crib Clerk 09/29/18 04:27 Eos % (Auto) Crib Clerk 09/29/18 04:27 Lymph # Crib Clerk 09/29/18 04:27 Add Manual Diff Complete 09/29/18 04:27 Total Counted 200 09/29/18 04:27 Seg Neutrophils % Crib Clerk 09/29/18 04:27 Seg Neuts % (Manual) 27.5 % (40.0-70.0) L 09/29/18 04:27 0 % 09/29/18 04:27 69.5 % (13.4-35.0) H 09/29/18 04:27 Reactive Lymphs % (Man) 0 % 09/29/18 04:27 2.0 % (0.0-7.3) 09/29/18 04:27 0.5 % (0.0-4.3) 09/29/18 04:27 0.5 % (0.0-1.8) 09/29/18 04:27 0 % 09/29/18 04:27 0 % 09/29/18 04:27 0 % 09/29/18 04:27 0 % 09/29/18 04:27 Nucleated RBC % Not Reportable 09/29/18 04:27 Seg Neutrophils # Man 8.2 K/mm3 (1.8-7.7) H 09/29/18 04:27 Band Neutrophils # 0.0 K/mm3 09/29/18 04:27 20.8 K/mm3 (1.2-5.4) H 09/29/18 04:27 Abs React Lymphs (Man) 0.0 K/mm3 09/29/18 04:27 0.6 K/mm3 (0.0-0.8) 09/29/18 04:27 0.1 K/mm3 (0.0-0.4) 09/29/18 04:27 0.1 K/mm3 (0.0-0.1) 09/29/18 04:27 0.0 K/mm3 09/29/18 04:27 0.0 K/mm3 09/29/18 04:27 0.0 K/mm3 09/29/18 04:27 Blast Cells # 0.0 K/mm3 09/29/18 04:27 WBC Morphology Not Reportable 09/29/18 04:27 WBC Morphology TNR 09/29/18 04:27 Hypersegmented Neuts Not Reportable 09/29/18 04:27 Hyposegmented Neuts Not Reportable 09/29/18 04:27 Hypogranular Neuts Not Reportable 09/29/18 04:27 Not Reportable 09/29/18 04:27 Not Reportable 09/29/18 04:27 Not Reportable 09/29/18 04:27 Not Reportable 09/29/18 04:27 Not Reportable 09/29/18 04:27 Not Reportable 09/29/18 04:27 Consistent w auto 09/29/18 04:27 Not Reportable 09/29/18 04:27 Plt Clumps, EDTA Not Reportable 09/29/18 04:27 Not Reportable 09/29/18 04:27 Not Reportable 09/29/18 04:27 Not Reportable 09/29/18 04:27 Plt Morphology Comment Not Reportable 09/29/18 04:27 RBC Morphology Not Reportable 09/29/18 04:27 Dimorphic RBCs Not Reportable 09/29/18 04:27 1+ 09/29/18 04:27 Not Reportable 09/29/18 04:27 Not Reportable 09/29/18 04:27 1+ 09/29/18 04:27 Not Reportable 09/29/18 04:27 Not Reportable 09/29/18 04:27 Not Reportable 09/29/18 04:27 Not Reportable 09/29/18 04:27 Not Reportable 09/29/18 04:27 Not Reportable 09/29/18 04:27 1+ 09/29/18 04:27 Not Reportable 09/29/18 04:27 Not Reportable 09/29/18 04:27 Not Reportable 09/29/18 04:27 Not Reportable 09/29/18 04:27 Not Reportable 09/29/18 04:27 Not Reportable 09/29/18 04:27 Not Reportable 09/29/18 04:27 Not Reportable 09/29/18 04:27 Acanthocytes (Spur) Not Reportable 09/29/18 04:27 Rouleaux Not Reportable 09/29/18 04:27 Not Reportable 09/29/18 04:27 Not Reportable 09/29/18 04:27 Not Reportable 09/29/18 04:27 Not Reportable 09/29/18 04:27 Hem Pathologist Commnt No 09/29/18 04:27 Sodium 142 mmol/L (137-145) 09/30/18 04:25 Potassium 3.6 mmol/L (3.6-5.0) 09/30/18 04:25 Chloride 109.4 mmol/L (98-107) H 09/30/18 04:25 Carbon Dioxide 22 mmol/L (22-30) 09/30/18 04:25 14 mmol/L 09/30/18 04:25 BUN 6 mg/dL (7-17) L 09/30/18 04:25 0.7 mg/dL (0.7-1.2) 09/30/18 04:25 Estimated GFR > 60 ml/min 09/30/18 04:25 9 % 09/30/18 04:25 Glucose 88 mg/dL (65-100) 09/30/18 04:25 POC Glucose 107 (70-105) H 09/30/18 11:23 Calcium 8.2 mg/dL (8.4-10.2) L 09/30/18 04:25 1.80 mg/dL (0.1-1.2) H 09/28/18 17:03 AST 18 units/L (5-40) 09/28/18 17:03 ALT 12 units/L (7-56) 09/28/18 17:03 73 units/L (35-129) 09/28/18 17:03 67 units/L (30-135) 09/28/18 17:03 < 0.010 ng/mL (0.00-0.029) 09/28/18 17:03 6.1 g/dL (6.3-8.2) L 09/28/18 17:03 3.8 g/dL (3.9-5) L 09/28/18 17:03 1.7 % 09/28/18 17:03 TSH 1.950 mlU/mL (0.270-4.200) 09/28/18 17:03 Josselyn (Yellow) 09/28/18 18:01 Cloudy (Clear) 09/28/18 18:01 6.0 (5.0-7.0) 09/28/18 18:[address] [place] 1.016 (1.003-1.030) 09/28/18 18:01 30 mg/dl mg/dL (Negative) 09/28/18 18:01 Neg mg/dL (Negative) 09/28/18 18:01 Tr mg/dL (Negative) 09/28/18 18:01 Neg (Negative) 09/28/18 18:01 Neg (Negative) 09/28/18 18:01 Neg (Negative) 09/28/18 18:01 2.0 mg/dL (<2.0) 09/28/18 18:01 Ur Leukocyte Esterase Tr (Negative) 09/28/18 18:01 1.0 /HPF (0.0-6.0) 09/28/18 18:01 2.0 /HPF (0.0-6.0) 09/28/18 18:01 1+ /HPF 09/28/18 18:01 Presumptive negative 09/28/18 Unknown Presumptive negative 09/28/18 Unknown Ur Barbiturates Screen Presumptive negative 09/28/18 Unknown Ur Phencyclidine Scrn Presumptive negative 09/28/18 Unknown Ur Amphetamines Screen Presumptive negative 09/28/18 Unknown U Benzodiazepines Scrn Presumptive negative 09/28/18 Unknown Presumptive negative 09/28/18 Unknown U Marijuana (THC) Screen Presumptive negative 09/28/18 Unknown Disclamer 09/28/18 Unknown Plasma/Serum Alcohol < 0.01 % (0-0.07) 09/28/18 17:03 Active Medications - Current Medications Current Medications: Generic Name Dose Route Start Last Admin Trade Name Freq PRN Reason Stop Dose Admin Acetaminophen 650 mg 09/28/18 23:29 09/29/18 23:52 Tylenol PO 650 mg Q4H PRN Administration Pain MILD(1-3)/Fever >100.5/MARTELL Docusate Sodium 100 mg 09/29/18 10:00 09/30/18 09:02 Colace PO 100 mg BID TISHA Administration Haloperidol Lactate 5 mg 09/28/18 23:40 09/29/18 23:53 Haldol IM 5 mg Q6H PRN Administration Agitation Sodium Chloride 1,000 mls @ 75 mls/hr 09/28/18 23:45 09/30/18 05:01 Nacl 0.45% 1000 Ml IV 75 mls/hr DIRECT TISHA Administration Ondansetron HCl 4 mg 09/28/18 23:29 Zofran IV Q8H PRN Nausea And Vomiting Sodium Chloride 10 ml 09/28/18 23:45 09/30/18 09:02 Sodium Chloride Flush Syringe 10 Ml IV 10 ml BID TISHA Administration Sodium Chloride 10 ml 09/28/18 23:29 Sodium Chloride Flush Syringe 10 Ml IV PRN PRN LINE FLUSH
--- NOTE | 2018-09-30 12:43 | Discharge Summary ---
Providers - Providers Date of Admission: 09/28/18 23:29 Date of discharge: 10/02/18 Attending physician: RIK DIAZ 09/28/18 Consult to Case Management [CONS] Routine Services Needed at Discharge: Home Health Services Notified:: BOOGIE Comment:: demented pt. they refused home health the last admission. 09/29/18 09:14 Physical Therapy Evaluation and Treat [CONS] Routine Comment: Reason For Exam: Weakness 09/29/18 15:39 Consult to Case Management [CONS] Routine Services Needed at Discharge: Early Childhood Worker Notified:: BOOGIE Additional Physician Instructions: SNF Placement as per family request: Please send out [facility]. Primary care physician: DAMIAN WILEY Hospitalization Condition: Stable Hospital course: Patient is a 73-year-old -[place] woman with a history of CLL and Dementia who presented to [facility] ED with AMS/confusion. The patient was recently admitted and discharge from here on 09/11/18 - 09/14/18 during which she was managed for dehydration, Encephalopathy and evaluation of probable CLL. During that time 65,000 white blood cells and was evaluated by oncology Dr. 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 Allegedly, pt was found naked and rolling on the floor by Adult Protective Services and they spoke with the patient's son, Mahad, whom the patient lives with. Mahad told the ED physician that "they do not like the way that I am taking care of her." Patient was being visited by Adult Protective Services when they found her naked, rolling around on the ground, agitated, in what they considered to be unsafe living conditions. For this reason, the police were called and then EMS and the patient was transported here for further evaluation. The patient's only complaint is some left shoulder pain that sounds like may have been from about 1 week ago when the patient had an unconfirmed fall. Acute metabolic encephalopathy -treat the dehydration with IVF 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 of note, MRI brain done last month, 08/2018 was negative for CVA - fall precautions - urine drug screen for prudence and that was negative, so was her UA - no infection focus found thus far - Haldol IM PRN - consider Psych evaluation. She likely will need placement, as APS is already involved. - Case management consult Left distal Clavicle Fx - subacute nature, likely given her recent falls - unclear if she has any pain - reassess once she is lucid - PRN analgesics CLL - early stage - with lymphocytosis of 40K - It was higher before months ago - Oncology said just observation. consider consult while in house if indicated. No indication at this point Dehydration - mild to moderate - with metabolic acidosis - gentle IVF Anemia, chronic - stable - monitor Falls - multiple - due to dementia and/or debility - PT/Ot as she allows Anemia, appears chronic - outpt Dr. Rodriguez referral Drop in HCT - most likely dilutional Discharge to [facility] Disposition: DC/[place]-[id number] SNF W [facility] CERT Time spent for discharge: 32 minutes Core Measure Documentation - Palliative Care Palliative Care/ Comfort Measures: Not Applicable - Core Measures Any of the following diagnoses?: none - VTE Discharge Requirements Deep Vein Thrombosis/Pulmonary Embolism Present on Admission: No Has pt received <5 days of overlap therapy or INR<2.0: No Anticoagulant overlap therapy prescribed at discharge: No Contraindication No Overlap Therapy order at DC: Not Indicated Exam - Physical Exam Narrative exam: Gen: thin frail, chronically ill appearing, NAD, Awake, Alert, Orientated x 1 HEENT: NCAT, EOMI, PERRL, OP Clear Neck: supple, no adenopathy, no thyromegaly, no JVD CVS/Heart: RRR, normal S1S2, pulses present bilaterally Chest/Lungs: CTA B, Symmetrical chest expansion, good air entry bilaterally GI/Abdomen: soft, NTND, good bowel sounds, no guarding or rebound /Bladder: no suprapubic tenderness, no CVA or paraspinal tenderness Extermity/Skin: no c/c/e, no obvious rash MSK: FROM x 4 Neuro: CN 2-12 grossly intact, no new focal deficits Psych: calm - Constitutional Vitals: Temp Pulse Resp BP Pulse Ox 98.3 F 90 18 120/50 100 09/30/18 07:39 09/30/18 07:39 09/30/18 07:39 09/30/18 07:39 09/30/18 07:39 Plan Activity: up only with assistance, fall precautions, other (no strenous activity) Diet: regular Additional Instructions: Stop Haldol immediately with any abnormal movement and notify Primary doctor immediately Follow up with: DAMIAN WILEY MD [Primary Care Provider] - 3-5 Days JEVON RODRIGUEZ MD [Staff Physician] - 7 Days CHARLIE BROOKS MD [Referring] - 7 Days Prescriptions: Haloperidol [Haldol] 5 mg PO BID PRN #10 tablet PRN Reason: Agitation Polyethylene Glycol 3350 [Miralax 3350] 17 gm PO QDAY PRN #30 packet PRN Reason: Constipation Ergocalciferol (Vitamin D2) [Vitamin D2] 2,000 unit PO DAILY #30 tablet
[2018-09-30 14:45] LABS: Hematocrit 24.2 % (30.3-42.9); Hemoglobin 7.6 gm/dl (10.1-14.3)
[2018-09-30] MEDS: HALDOL IM PRN (22:07)
[2018-09-30] MEDS: TYLENOL PO PRN (22:10)
[2018-10-01] MEDS: COLACE PO SCH ×2 (11:00→22:52)
[2018-10-01] MEDS: SODIUM CHLORIDE FLUSH SYRINGE 10 ML IV SCH ×2 (11:00→22:52)
--- NOTE | 2018-10-01 12:02 | Progress Note ---
Assessment and Plan Assessment and plan: Patient is a 73-year-old -[place] woman with a history of CLL and Dementia who presented to [facility] ED with AMS/confusion. The patient was recently admitted and discharge from here on 09/11/18 - 09/14/18 during which she was managed for dehydration, Encephalopathy and evaluation of probable CLL. During that time 65,000 white blood cells and was evaluated by oncology Dr. 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 Allegedly, pt was found naked and rolling on the floor by Adult Protective Services and they spoke with the patient's son, Mahad, whom the patient lives with. Mahad told the ED physician that "they do not like the way that I am taking care of her." Patient was being visited by Adult Protective Services when they found her naked, rolling around on the ground, agitated, in what they considered to be unsafe living conditions. For this reason, the police were called and then EMS and the patient was transported here for further evaluation. The patient's only complaint is some left shoulder pain that sounds like may have been from about 1 week ago when the patient had an unconfirmed fall. Acute metabolic encephalopathy -treat the dehydration with IVF Acute Psychosis superimposed on baseline Dementia - added Haldol 1mg po bid -with agitation and restlessness - head CT is negative. of note, MRI brain done last month, 08/2018 was negative for CVA - fall precautions - urine drug screen for prudence and that was negative, so was her UA - no infection focus found thus far - Haldol IM PRN - consider Psych evaluation. She likely will need placement, as APS is already involved. - Case management consult Left distal Clavicle Fx - subacute nature, likely given her recent falls - unclear if she has any pain - reassess once she is lucid - PRN analgesics CLL - early stage - with lymphocytosis of 40K - It was higher before months ago - Oncology said just observation. consider consult while in house if indicated. No indication at this point Dehydration - mild to moderate - with metabolic acidosis - gentle IVF Anemia, chronic - stable - monitor Falls - multiple - due to dementia and/or debility - PT/Ot as she allows d/w son Mahad at bedside yesterday, he does not want placement==>it appears he changed his mind, so patient wasn't discharged, now waiting on SNF placement History Interval history: Patient was seen and examined. Follow-up on current diagnosis of AMS. No overnight events reported to me. Patient denies any chest pain, shortness b reath, nausea/vomiting or severe headaches. Imaging, nursing note, chart, labs and old chart reviewed. Discussed with patient. Hospitalist Physical - Physical exam Narrative exam: Gen: thin frail, chronically ill appearing, NAD, Awake, Alert, Orientated x 1 HEENT: NCAT, EOMI, PERRL, OP Clear Neck: supple, no adenopathy, no thyromegaly, no JVD CVS/Heart: RRR, normal S1S2, pulses present bilaterally Chest/Lungs: CTA B, Symmetrical chest expansion, good air entry bilaterally GI/Abdomen: soft, NTND, good bowel sounds, no guarding or rebound /Bladder: no suprapubic tenderness, no CVA or paraspinal tenderness Extermity/Skin: no c/c/e, no obvious rash MSK: FROM x 4 Neuro: CN 2-12 grossly intact, no new focal deficits Psych: calm - Constitutional Vitals: Temp Pulse Resp BP Pulse Ox 98.7 F 82 18 127/51 96 10/01/18 02:03 10/01/18 02:03 10/01/18 02:03 10/01/18 02:03 10/01/18 02:03 General appearance: Present: no acute distress, well-nourished, disheveled, other (asleep at first then she later became agitated and restless. not reorientable) Results - Labs CBC & Chem 7: 09/30/18 13:16 09/30/18 04:25 Labs: Laboratory Last Values WBC 26.3 K/mm3 (4.5-11.0) H 09/30/18 04:25 RBC 2.73 M/mm3 (3.65-5.03) L 09/30/18 04:25 Hgb 7.6 gm/dl (10.1-14.3) L 09/30/18 13:16 Hct 24.2 % (30.3-42.9) L 09/30/18 13:16 MCV 87 fl (79-97) 09/30/18 04:25 MCH 27 pg (28-32) L 09/30/18 04:25 MCHC 31 % (30-34) 09/30/18 04:25 RDW 21.9 % (13.2-15.2) H 09/30/18 04:25 Plt Count 159 K/mm3 (140-440) 09/30/18 04:25 Lymph % (Auto) Liner Assembler 09/29/18 04:27 Falls % (Auto) Liner Assembler 09/29/18 04:27 Eos % (Auto) Liner Assembler 09/29/18 04:27 Lymph # Liner Assembler 09/29/18 04:27 Add Manual Diff Complete 09/29/18 04:27 Total Counted 200 09/29/18 04:27 Seg Neutrophils % Liner Assembler 09/29/18 04:27 Seg Neuts % (Manual) 27.5 % (40.0-70.0) L 09/29/18 04:27 0 % 09/29/18 04:27 69.5 % (13.4-35.0) H 09/29/18 04:27 Reactive Lymphs % (Man) 0 % 09/29/18 04:27 2.0 % (0.0-7.3) 09/29/18 04:27 0.5 % (0.0-4.3) 09/29/18 04:27 0.5 % (0.0-1.8) 09/29/18 04:27 0 % 09/29/18 04:27 0 % 09/29/18 04:27 0 % 09/29/18 04:27 0 % 09/29/18 04:27 Nucleated RBC % Not Reportable 09/29/18 04:27 Seg Neutrophils # Man 8.2 K/mm3 (1.8-7.7) H 09/29/18 04:27 Band Neutrophils # 0.0 K/mm3 09/29/18 04:27 20.8 K/mm3 (1.2-5.4) H 09/29/18 04:27 Abs React Lymphs (Man) 0.0 K/mm3 09/29/18 04:27 0.6 K/mm3 (0.0-0.8) 09/29/18 04:27 0.1 K/mm3 (0.0-0.4) 09/29/18 04:27 0.1 K/mm3 (0.0-0.1) 09/29/18 04:27 0.0 K/mm3 09/29/18 04:27 0.0 K/mm3 09/29/18 04:27 0.0 K/mm3 09/29/18 04:27 Blast Cells # 0.0 K/mm3 09/29/18 04:27 WBC Morphology Not Reportable 09/29/18 04:27 WBC Morphology TNR 09/29/18 04:27 Hypersegmented Neuts Not Reportable 09/29/18 04:27 Hyposegmented Neuts Not Reportable 09/29/18 04:27 Hypogranular Neuts Not Reportable 09/29/18 04:27 Not Reportable 09/29/18 04:27 Not Reportable 09/29/18 04:27 Not Reportable 09/29/18 04:27 Not Reportable 09/29/18 04:27 Not Reportable 09/29/18 04:27 Not Reportable 09/29/18 04:27 Consistent w auto 09/29/18 04:27 Not Reportable 09/29/18 04:27 Plt Clumps, EDTA Not Reportable 09/29/18 04:27 Not Reportable 09/29/18 04:27 Not Reportable 09/29/18 04:27 Not Reportable 09/29/18 04:27 Plt Morphology Comment Not Reportable 09/29/18 04:27 RBC Morphology Not Reportable 09/29/18 04:27 Dimorphic RBCs Not Reportable 09/29/18 04:27 1+ 09/29/18 04:27 Not Reportable 09/29/18 04:27 Not Reportable 09/29/18 04:27 1+ 09/29/18 04:27 Not Reportable 09/29/18 04:27 Not Reportable 09/29/18 04:27 Not Reportable 09/29/18 04:27 Not Reportable 09/29/18 04:27 Not Reportable 09/29/18 04:27 Not Reportable 09/29/18 04:27 1+ 09/29/18 04:27 Not Reportable 09/29/18 04:27 Not Reportable 09/29/18 04:27 Not Reportable 09/29/18 04:27 Not Reportable 09/29/18 04:27 Not Reportable 09/29/18 04:27 Not Reportable 09/29/18 04:27 Not Reportable 09/29/18 04:27 Not Reportable 09/29/18 04:27 Acanthocytes (Spur) Not Reportable 09/29/18 04:27 Rouleaux Not Reportable 09/29/18 04:27 Not Reportable 09/29/18 04:27 Not Reportable 09/29/18 04:27 Not Reportable 09/29/18 04:27 Not Reportable 09/29/18 04:27 Hem Pathologist Commnt No 09/29/18 04:27 Sodium 142 mmol/L (137-145) 09/30/18 04:25 Potassium 3.6 mmol/L (3.6-5.0) 09/30/18 04:25 Chloride 109.4 mmol/L (98-107) H 09/30/18 04:25 Carbon Dioxide 22 mmol/L (22-30) 09/30/18 04:25 14 mmol/L 09/30/18 04:25 BUN 6 mg/dL (7-17) L 09/30/18 04:25 0.7 mg/dL (0.7-1.2) 09/30/18 04:25 Estimated GFR > 60 ml/min 09/30/18 04:25 9 % 09/30/18 04:25 Glucose 88 mg/dL (65-100) 09/30/18 04:25 POC Glucose 105 (70-105) 10/01/18 00:25 Calcium 8.2 mg/dL (8.4-10.2) L 09/30/18 04:25 1.80 mg/dL (0.1-1.2) H 09/28/18 17:03 AST 18 units/L (5-40) 09/28/18 17:03 ALT 12 units/L (7-56) 09/28/18 17:03 73 units/L (35-129) 09/28/18 17:03 67 units/L (30-135) 09/28/18 17:03 < 0.010 ng/mL (0.00-0.029) 09/28/18 17:03 6.1 g/dL (6.3-8.2) L 09/28/18 17:03 3.8 g/dL (3.9-5) L 09/28/18 17:03 1.7 % 09/28/18 17:03 TSH 1.950 mlU/mL (0.270-4.200) 09/28/18 17:03 Josselyn (Yellow) 09/28/18 18:01 Cloudy (Clear) 09/28/18 18:01 6.0 (5.0-7.0) 09/28/18 18:01 Ur Specific [place] 1.016 (1.003-1.030) 09/28/18 18:01 30 mg/dl mg/dL (Negative) 09/28/18 18:01 Neg mg/dL (Negative) 09/28/18 18:01 Tr mg/dL (Negative) 09/28/18 18:01 Neg (Negative) 09/28/18 18:01 Neg (Negative) 09/28/18 18:01 Neg (Negative) 09/28/18 18:01 2.0 mg/dL (<2.0) 09/28/18 18:01 Ur Leukocyte Esterase Tr (Negative) 09/28/18 18:01 1.0 /HPF (0.0-6.0) 09/28/18 18:01 2.0 /HPF (0.0-6.0) 09/28/18 18:01 1+ /HPF 09/28/18 18:01 Presumptive negative 09/28/18 Unknown Presumptive negative 09/28/18 Unknown Ur Barbiturates Screen Presumptive negative 09/28/18 Unknown Ur Phencyclidine Scrn Presumptive negative 09/28/18 Unknown Ur Amphetamines Screen Presumptive negative 09/28/18 Unknown U Benzodiazepines Scrn Presumptive negative 09/28/18 Unknown Presumptive negative 09/28/18 Unknown U Marijuana (THC) Screen Presumptive negative 09/28/18 Unknown Disclamer 09/28/18 Unknown Plasma/Serum Alcohol < 0.01 % (0-0.07) 09/28/18 17:03 Active Medications - Current Medications Current Medications: Generic Name Dose Route Start Last Admin Trade Name Freq PRN Reason Stop Dose Admin Acetaminophen 650 mg 09/28/18 23:29 09/30/18 22:10 Tylenol PO 650 mg Q4H PRN Administration Pain MILD(1-3)/Fever >100.5/MARTELL Docusate Sodium 100 mg 09/29/18 10:00 09/30/18 22:08 Colace PO 100 mg BID TISHA Administration Haloperidol Lactate 5 mg 09/28/18 23:40 09/30/18 22:07 Haldol IM 5 mg Q6H PRN Administration Agitation Sodium Chloride 1,000 mls @ 75 mls/hr 09/28/18 23:45 09/30/18 19:16 Nacl 0.45% 1000 Ml IV 75 mls/hr DIRECT TISHA Administration Ondansetron HCl 4 mg 09/28/18 23:29 Zofran IV Q8H PRN Nausea And Vomiting Sodium Chloride 10 ml 09/28/18 23:45 09/30/18 22:32 Sodium Chloride Flush Syringe 10 Ml IV 10 ml BID TISHA Administration Sodium Chloride 10 ml 09/28/18 23:29 Sodium Chloride Flush Syringe 10 Ml IV PRN PRN LINE FLUSH
[2018-10-01] MEDS ORDERED: HALDOL PO SCH (22:00)
[2018-10-01] MEDS: HALDOL PO SCH (23:00)
--- NOTE | 2018-10-02 06:54 | Progress Note ---
Assessment and Plan Assessment and plan: Patient is a 73-year-old -[place] woman with a history of CLL and Dementia who presented to [facility] ED with AMS/confusion. The patient was recently admitted and discharge from here on 09/11/18 - 09/14/18 during which she was managed for dehydration, Encephalopathy and evaluation of probable CLL. During that time 65,000 white blood cells and was evaluated by oncology Dr. 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 Allegedly, pt was found naked and rolling on the floor by Adult Protective Services and they spoke with the patient's son, Mahad, whom the patient lives with. Mahad told the ED physician that "they do not like the way that I am taking care of her." Patient was being visited by Adult Protective Services when they found her naked, rolling around on the ground, agitated, in what they considered to be unsafe living conditions. For this reason, the police were called and then EMS and the patient was transported here for further evaluation. The patient's only complaint is some left shoulder pain that sounds like may have been from about 1 week ago when the patient had an unconfirmed fall. Acute metabolic encephalopathy -treated the dehydration with IVF Acute Psychosis superimposed on baseline Dementia - added Haldol 1mg po bid -with agitation and restlessness - head CT is negative. of note, MRI brain done last month, 08/2018 was negative for CVA - fall precautions - urine drug screen for prudence and that was negative, so was her UA - no infection focus found thus far - Haldol IM PRN - consider Psych evaluation. She likely will need placement, as APS is already involved. - Case management consult Left distal Clavicle Fx - subacute nature, likely given her recent falls - unclear if she has any pain - reassess once she is lucid - PRN analgesics CLL - early stage - with lymphocytosis of 40K - It was higher before months ago - Oncology said just observation. consider consult while in house if indicated. No indication at this point Dehydration - mild to moderate - with metabolic acidosis - gentle IVF Anemia, chronic - stable - monitor Falls - multiple - due to dementia and/or debility - PT/Ot as she allows Acute on chronic blood loss anemia with Drop in HCT, most likely dilutional, - chronic anemia needs outpatient work-up, refer to Dr. Rodriguez d/c to SNF if h/h stable and negative FOBT d/w son Mahad at bedside yesterday, he does not want placement==>it appears he changed his mind, so patient wasn't discharged, now waiting on SNF placement History Interval history: Patient was seen and examined. Follow-up on current diagnosis of AMS. No overnight events reported to me. Patient denies any chest pain, shortness breath, nausea/vomiting or severe headaches. Imaging, nursing note, chart, labs and old chart reviewed. Discussed with patient. Hospitalist Physical - Physical exam Narrative exam: Gen: thin frail, chronically ill appearing, NAD, Awake, Alert, Orientated x 1 HEENT: NCAT, EOMI, PERRL, OP Clear Neck: supple, no adenopathy, no thyromegaly, no JVD CVS/Heart: RRR, normal S1S2, pulses present bilaterally Chest/Lungs: CTA B, Symmetrical chest expansion, good air entry bilaterally GI/Abdomen: soft, NTND, good bowel sounds, no guarding or rebound /Bladder: no suprapubic tenderness, no CVA or paraspinal tenderness Extermity/Skin: no c/c/e, no obvious rash MSK: FROM x 4 Neuro: CN 2-12 grossly intact, no new focal deficits Psych: calm - Constitutional Vitals: Temp Pulse Resp BP Pulse Ox 98.1 F 83 18 122/57 99 10/02/18 02:58 10/02/18 02:58 10/02/18 02:58 10/02/18 02:58 10/02/18 02:58 General appearance: Present: no acute distress, well-nourished, disheveled, other (asleep at first then she later became agitated and restless. not reorientable) Results - Labs CBC & Chem 7: 10/02/18 10:33 09/30/18 04:25 Labs: Laboratory Last Values WBC 26.3 K/mm3 (4.5-11.0) H 09/30/18 04:25 RBC 2.73 M/mm3 (3.65-5.03) L 09/30/18 04:25 Hgb 7.6 gm/dl (10.1-14.3) L 09/30/18 13:16 Hct 24.2 % (30.3-42.9) L 09/30/18 13:16 MCV 87 fl (79-97) 09/30/18 04:25 MCH 27 pg (28-32) L 09/30/18 04:25 MCHC 31 % (30-34) 09/30/18 04:25 RDW 21.9 % (13.2-15.2) H 09/30/18 04:25 Plt Count 159 K/mm3 (140-440) 09/30/18 04:25 Lymph % (Auto) Television Actor 09/29/18 04:27 [place] % (Auto) Television Actor 09/29/18 04:27 Eos % (Auto) Television Actor 09/29/18 04:27 Lymph # Television Actor 09/29/18 04:27 Add Manual Diff Complete 09/29/18 04:27 Total Counted 200 09/29/18 04:27 Seg Neutrophils % Television Actor 09/29/18 04:27 Seg Neuts % (Manual) 27.5 % (40.0-70.0) L 09/29/18 04:27 0 % 09/29/18 04:27 69.5 % (13.4-35.0) H 09/29/18 04:27 Reactive Lymphs % (Man) 0 % 09/29/18 04:27 2.0 % (0.0-7.3) 09/29/18 04:27 0.5 % (0.0-4.3) 09/29/18 04:27 0.5 % (0.0-1.8) 09/29/18 04:27 0 % 09/29/18 04:27 0 % 09/29/18 04:27 0 % 09/29/18 04:27 0 % 09/29/18 04:27 Nucleated RBC % Not Reportable 09/29/18 04:27 Seg Neutrophils # Man 8.2 K/mm3 (1.8-7.7) H 09/29/18 04:27 Band Neutrophils # 0.0 K/mm3 09/29/18 04:27 20.8 K/mm3 (1.2-5.4) H 09/29/18 04:27 Abs React Lymphs (Man) 0.0 K/mm3 09/29/18 04:27 0.6 K/mm3 (0.0-0.8) 09/29/18 04:27 0.1 K/mm3 (0.0-0.4) 09/29/18 04:27 0.1 K/mm3 (0.0-0.1) 09/29/18 04:27 0.0 K/mm3 09/29/18 04:27 0.0 K/mm3 09/29/18 04:27 0.0 K/mm3 09/29/18 04:27 Blast Cells # 0.0 K/mm3 09/29/18 04:27 WBC Morphology Not Reportable 09/29/18 04:27 WBC Morphology TNR 09/29/18 04:27 Hypersegmented Neuts Not Reportable 09/29/18 04:27 Hyposegmented Neuts Not Reportable 09/29/18 04:27 Hypogranular Neuts Not Reportable 09/29/18 04:27 Not Reportable 09/29/18 04:27 Not Reportable 09/29/18 04:27 Not Reportable 09/29/18 04:27 Not Reportable 09/29/18 04:27 Not Reportable 09/29/18 04:27 Not Reportable 09/29/18 04:27 Consistent w auto 09/29/18 04:27 Not Reportable 09/29/18 04:27 Plt Clumps, EDTA Not Reportable 09/29/18 04:27 Not Reportable 09/29/18 04:27 Not Reportable 09/29/18 04:27 Not Reportable 09/29/18 04:27 Plt Morphology Comment Not Reportable 09/29/18 04:27 RBC Morphology Not Reportable 09/29/18 04:27 Dimorphic RBCs Not Reportable 09/29/18 04:27 1+ 09/29/18 04:27 Not Reportable 09/29/18 04:27 Not Reportable 09/29/18 04:27 1+ 09/29/18 04:27 Not Reportable 09/29/18 04:27 Not Reportable 09/29/18 04:27 Not Reportable 09/29/18 04:27 Not Reportable 09/29/18 04:27 Not Reportable 09/29/18 04:27 Not Reportable 09/29/18 04:27 1+ 09/29/18 04:27 Not Reportable 09/29/18 04:27 Not Reportable 09/29/18 04:27 Not Reportable 09/29/18 04:27 Not Reportable 09/29/18 04:27 Not Reportable 09/29/18 04:27 Not Reportable 09/29/18 04:27 Not Reportable 09/29/18 04:27 Not Reportable 09/29/18 04:27 Acanthocytes (Spur) Not Reportable 09/29/18 04:27 Rouleaux Not Reportable 09/29/18 04:27 Not Reportable 09/29/18 04:27 Not Reportable 09/29/18 04:27 Not Reportable 09/29/18 04:27 Not Reportable 09/29/18 04:27 Hem Pathologist Commnt No 09/29/18 04:27 Sodium 142 mmol/L (137-145) 09/30/18 04:25 Potassium 3.6 mmol/L (3.6-5.0) 09/30/18 04:25 Chloride 109.4 mmol/L (98-107) H 09/30/18 04:25 Carbon Dioxide 22 mmol/L (22-30) 09/30/18 04:25 14 mmol/L 09/30/18 04:25 BUN 6 mg/dL (7-17) L 09/30/18 04:25 0.7 mg/dL (0.7-1.2) 09/30/18 04:25 Estimated GFR > 60 ml/min 09/30/18 04:25 9 % 09/30/18 04:25 Glucose 88 mg/dL (65-100) 09/30/18 04:25 POC Glucose 103 (70-105) 10/02/18 06:24 Calcium 8.2 mg/dL (8.4-10.2) L 09/30/18 04:25 1.80 mg/dL (0.1-1.2) H 09/28/18 17:03 AST 18 units/L (5-40) 09/28/18 17:03 ALT 12 units/L (7-56) 09/28/18 17:03 73 units/L (35-129) 09/28/18 17:03 67 units/L (30-135) 09/28/18 17:03 < 0.010 ng/mL (0.00-0.029) 09/28/18 17:03 6.1 g/dL (6.3-8.2) L 09/28/18 17:03 3.8 g/dL (3.9-5) L 09/28/18 17:03 1.7 % 09/28/18 17:03 TSH 1.950 mlU/mL (0.270-4.200) 09/28/18 17:03 Josselyn (Yellow) 09/28/18 18:01 Cloudy (Clear) 09/28/18 18:01 6.0 (5.0-7.0) 09/28/18 18:01 Ur Specific [place] 1.016 (1.003-1.030) 09/28/18 18:01 30 mg/dl mg/dL (Negative) 09/28/18 18:01 Neg mg/dL (Negative) 09/28/18 18:01 Tr mg/dL (Negative) 09/28/18 18:01 Neg (Negative) 09/28/18 18:01 Neg (Negative) 09/28/18 18:01 Neg (Negative) 09/28/18 18:01 2.0 mg/dL (<2.0) 09/28/18 18:01 Ur Leukocyte Esterase Tr (Negative) 09/28/18 18:01 1.0 /HPF (0.0-6.0) 09/28/18 18:01 2.0 /HPF (0.0-6.0) 09/28/18 18:01 1+ /HPF 09/28/18 18:01 Presumptive negative 09/28/18 Unknown Presumptive negative 09/28/18 Unknown Ur Barbiturates Screen Presumptive negative 09/28/18 Unknown Ur Phencyclidine Scrn Presumptive negative 09/28/18 Unknown Ur Amphetamines Screen Presumptive negative 09/28/18 Unknown U Benzodiazepines Scrn Presumptive negative 09/28/18 Unknown Presumptive negative 09/28/18 Unknown U Marijuana (THC) Screen Presumptive negative 09/28/18 Unknown Disclamer 09/28/18 Unknown Plasma/Serum Alcohol < 0.01 % (0-0.07) 09/28/18 17:03 Active Medications - Current Medications Current Medications: Generic Name Dose Route Start Last Admin Trade Name Freq PRN Reason Stop Dose Admin Acetaminophen 650 mg 09/28/18 23:29 09/30/18 22:10 Tylenol PO 650 mg Q4H PRN Administration Pain MILD(1-3)/Fever >100.5/MARTELL Docusate Sodium 100 mg 09/29/18 10:00 10/01/18 22:52 Colace PO 100 mg BID TISHA Administration Haloperidol Lactate 5 mg 09/28/18 23:40 09/30/18 22:07 Haldol IM 5 mg Q6H PRN Administration Agitation Haloperidol Lactate 1 mg 10/01/18 23:00 10/01/18 23:00 Haldol PO 1 mg BID TISHA Administration Sodium Chloride 10 ml 09/28/18 23:45 10/01/18 22:52 Sodium Chloride Flush Syringe 10 Ml IV Not Given BID TISHA Sodium Chloride 10 ml 09/28/18 23:29 Sodium Chloride Flush Syringe 10 Ml IV PRN PRN LINE FLUSH
[2018-10-02 08:13] VITALS: BP 125/60
[2018-10-02 10:50] LABS: Hematocrit 30.2 % (30.3-42.9); Hemoglobin 9.1 gm/dl (10.1-14.3)
[2018-10-02] MEDS: COLACE PO SCH (11:12)
[2018-10-02] MEDS: HALDOL PO SCH (11:12)
[2018-10-02] MEDS: SODIUM CHLORIDE FLUSH SYRINGE 10 ML IV SCH (11:13)
[2018-10-02 11:20] LABS: Iron 112 ug/dL (37-170); Total Iron Binding Capacity 166 mcg/dL (250-450)
== END 2018-10-02 16:15 | DRG 640 ==
LOC: ED 16:21 → 2B-ACE 23:29
PROVIDERS: ADMIT Hospitalist; ATTEND Internal Medicine
PROC: 3E0234Z Introduction of Serum, Toxoid and Vaccine into Muscle, Percutaneous Approach (ICD-10-PCS; principal; 2018-09-29)
DX: E86.0 Dehydration (principal); G93.41 Metabolic encephalopathy; F23 Brief psychotic disorder; C91.10 Chronic lymphocytic leukemia of B-cell type not having achieved remission; D62 Acute posthemorrhagic anemia; S42.032A Displaced fracture of lateral end of left clavicle, initial encounter for closed fracture; E87.2 Acidosis; X58.XXXA Exposure to other specified factors, initial encounter; F03.90 Unspecified dementia, unspecified severity, without behavioral disturbance, psychotic disturbance, mood disturbance, and anxiety; D64.9 Anemia, unspecified; W19.XXXA Unspecified fall, initial encounter; Z82.49 Family history of ischemic heart disease and other diseases of the circulatory system; Z91.81 History of falling; Y93.89 Activity, other specified; Y92.098 Other place in other non-institutional residence as the place of occurrence of the external cause; Y99.8 Other external cause status; Z23 Encounter for immunization
CPT/HCPCS: 36415; 70450; 71045; 72125; 80048; 80053; 80307; 80320; 81001; 82550; 82728; 82962; 83550; 84443; 84484; 85007; 85014; 85018; 85025; 85027; 87116; 90471; 90732; 93005; 93010; 94640; 96372; G0378; G0009; G0480; J1630; J1650; J7030